=== PATIENT | male | born 1945 | race Caucasian/White ===

== ENCOUNTER 2022-10-14 12:38 | Day surgery (SDC) | payer MEDICARE, SELFPAY ==
--- NOTE | 2022-10-06 10:04 | EKG12_ITS ---
Test Reason : PRE-OP Blood Pressure : / mmHG Vent. Rate : 084 BPM Atrial Rate : 084 BPM P-R Int : 240 ms QRS Dur : 078 ms QT Int : 360 ms P-R-T Axes : 051 -01 066 degrees QTc Int : 425 ms Sinus rhythm with marked sinus arrhythmia with 2nd degree AV block: mobitz I Nonspecific ST and T wave abnormality Confirmed by LUKE HALL, HAIM ([id number]), videotape editor EVELIA PIERRE ([id number]) on 10/07/2022 11:05:15 AM Referred By: NIGHAT Confirmed By:HAIM BUTLER MD
[2022-10-06 10:39] LABS: Absolute Lymphocyte Count 0.89 X10^3/uL (0.83-4.51); Absolute Neutrophil Count 4.3 X10^3/uL (2.0-7.7); Basophil# 0.04 X10^3/uL; Basophil% 0.7 % (0-1); Eosinophil# 0.06 X10^3/uL; Hematocrit 40.5 % (40-54); Hemoglobin 12.4 g/dL (13.0-16.5); Lymphocyte # 0.89 X10^3/ul (0.83-4.51); Lymphocyte % 15.5 % (19-41); Mean Corp Hgb Conc 30.6 g/dL (32-36); Mean Corpuscular Hgb 28.4 pg (27.0-32.0); Mean Corpuscular Volume 92.9 fL (80-94); Mean Platelet Vol. 9.6 fl (6.2-12.0); Monocyte# 0.41 X10^3/uL; Monocyte% 7.1 % (0-10); NRBC Flagged by Analyzer 0 % (0-5); Neutrophil # 4.33 X10^3/uL (2.7-7.7); Neutrophil % 75.2 % (47-70); Platelet Count 350 K/mm3 (150-450); RBC Distribution Width CV 15.4 % (11.6-14.6); RBC Distribution Width SD 52.5 fl (35.1-43.9); Red Blood Count 4.36 M/mm3 (4.6-6.2); White Blood Count 5.8 K/mm3 (4.4-11.0)
[2022-10-06 11:09] LABS: Anion Gap 8 (5-15); BUN 26 mg/dL (7-18); BUN/Creat Ratio 23.6 RATIO (10-20); Calcium,Total 9.1 mg/dL (8.5-10.1); Chloride 107 mmol/L (98-107); EST Glomerular Filtration Rate 69 mL/min (>60); Est Glom Filt Rate - Afr Amer 84 mL/min (>60); Glucose 140 mg/dL (74-106); Sodium Level 139 mmol/L (136-145)
[2022-10-14] VITALS (10 sets, daily range): BP systolic 137–195; BP diastolic 68–100; PULSE 76–96; RESP 16–18; TEMP 36.5–36.6; O2SAT 94–100; BMI 32.8
[2022-10-14] MEDS: Lactated Ringers 1,000 ML 15 ML IV (13:22)
[2022-10-14 14:06] LABS: Bedside Glucose 95 mg/dL (74-106)
--- NOTE | 2022-10-14 14:55 | RAD_ITS ---
HISTORY: FX. Fluoroscopic support for ankle internal fixation. COMPARISON: None TECHNIQUE: A total of 5 fluoroscopic images were saved without a radiologist present. FINDINGS: Images demonstrate fibular internal fixation plate-screw complex without evidence of hardware failure. Progressive placement of distal tibiofibular syndesmosis internal fixation hardware.. Total fluoroscopy time: 49.8 seconds Cumulative air kerma: 1.29 mGy RAD/Ankle 2 Views IMPRESSION: Fluoroscopic assistance for ankle internal fixation. Please see operative report for additional information. Electronically Signed: Cheikh Guo MD at 4:19 EST ,
[2022-10-14] MEDS: Cefazolin 2 GM in 0.9% Normal Saline 100 ML IV (15:02)
--- NOTE | 2022-10-14 16:43 | DCINST_ITS ---
Discharge Instructions Follow Up Care Test Results: Test results from this visit will be discussed in further detail at your follow- up appointment, if applicable. Discharge Plan Admission Primary Reason for Your Visit: Right ankle surgery Attending Provider: Rodger Evans Primary Care Provider: Wesley Hampton Instructions Additional Instructions / Restrictions: Follow preprinted instructions from your surgeon's office. Discharge Orders/Prescriptions Prescriptions: No Action venlafaxine 75 mg capsule,extended release 24hr 75 mg PO DAILY Label Comments: TAKE 1 CAPSULE BY MOUTH EVERY DAY atorvastatin 20 mg tablet 20 mg PO DAILY Label Comments: TAKE 1 TABLET BY MOUTH EVERY DAY pioglitazone [Actos] 45 mg Tablet 45 mg PO DAILY clopidogrel 75 mg tablet 1 mg PO DAILY Label Comments: TAKE 1 TABLET BY MOUTH EVERY DAY metformin 1,000 mg tablet 1,000 mg PO BID Label Comments: TAKE 1 TABLET BY MOUTH TWICE A DAY WITH MEALS lisinopril 10 mg tablet 10 mg PO DAILY Label Comments: TAKE 1 TABLET BY MOUTH EVERY DAY glimepiride 4 mg tablet 4 mg PO BID Label Comments: TAKE 1 TABLET BY MOUTH TWICE A DAY Jardiance 25 mg tablet 25 mg PO DAILY mecobalamin (vitamin B12) [B12 Active] 1,000 mcg Tablet,Chewable 1,000 mcg PO DAILY hydrocodone-acetaminophen 5-325 mg Tablet 1 tab PO Q6H PRN (Reason: Pain) Referrals / Follow Up: Rodger Evans DO [Med Staff - Active Staff] - Within 2 Weeks Wesley Hampton DO [Primary Care Provider] - Disposition Disposition (needs filled in before D/C Order can be placed): Home, Self Care
--- NOTE | 2022-10-14 16:55 | OP.PCM_ITS ---
Report of Operation Date of Procedure: 10/14/22 Description of Surgical Findings:: Preoperative diagnosis: Right bimalleolar equivalent ankle fracture Postoperative diagnosis: Right bimalleolar equivalent ankle fracture with syndesmotic instability Procedure: 1. Open reduction internal fixation right lateral malleolus 2. Open reduction internal fixation right ankle syndesmosis Surgeon: Rodger Evans DO Computer Numeric Control Setter: Jennifer Marcelino PA-C Anesthesia: General endotracheal with popliteal block Anesthesiologist: Dr. Valle Complications: None Drains: None Estimated blood loss: 25 cc Urinary output: None recorded IV fluids: 1200 cc crystalloid Specimens: None Surgical implants: Arthrex 5 hole right lateral distal fibular locking plate, Arthrex tight rope syndesmotic suture fixation device Surgical indications: This is a 76-year-old male who sustained a twisting injury to his right ankle approximately 2 weeks ago. X-rays were obtained at outside ED and demonstrate a displaced lateral malleolus fracture with lateral subluxation of the talus suggesting a bimalleolar equivalent fracture subluxation. I saw the patient in the outpatient setting. I recommend surgical intervention in the form of right ankle lateral malleolus open reduction internal fixation with possible syndesmot ic fixation. The risks include but are not limited to bleeding, infection, loss of life or limb, risk of anesthesia, risk of nerve block, persistent pain, nonunion, malunion, posttraumatic arthritis, instability, need for additional surgery, failure of orthopedic hardware, persistent limp or need for assistive device. Patient expressed understanding of these risks and wished to proceed. Description of procedure: Patient was seen in preoperative holding area. They were identified by name, medical record number, date of . The operative extremity was marked with a surgical marker. We confirmed informed consent with the patient and all questions were answered to his satisfaction. In the preoperative holding area, a popliteal block was administered by the anesthesia staff. At time of the procedure, patient was brought to the operative suite and positioned supine on a standard operating table. All bony prominences were well-padded. General anesthesia was administered. After adequate anesthesia, a well-padded pneumatic tourniquet was applied to the right upper thigh. A large bump was placed in the patient's right hip. The right lower extremity was elevated on bath blankets for fluoroscopic imaging and access to the limb during surgery. We secured this with tape as well as the nonoperative extremity. We then performed a timeout with all parties in attendance and agree with the side, site, operation to be performed. No concerns were voiced and elected to proceed. 2 g Ancef was administered prior to incision by the anesthesia staff. We then prepped and draped the operative extremity using a ChloraPrep. While stabilizing the ankle, the operative extremity was exsanguinated with an Esmarch bandage. Tourniquet was inflated to 250 mmHg and remained up for ap proximately 45 minutes. Incision was planned over the lateral malleolus and distal fibular shaft centered over the level of the fracture. Skin was sharply incised with a 15 blade scalpel. Superficial bleeders were cauterized with Bovie cautery. We then bluntly dissected to the level of the fascia. Fascia was opened with Bovie cautery. We examined closely for the superficial peroneal nerve which was not encountered throughout surgery. We bluntly dissected down to the level of the periosteum. Hohmann retractors were placed after fracture was encountered as well as the fibula. Periosteum was elevated at the level of the fracture approximately 2 to 3 mm. There is a small cortical avulsion fracture of the AITFL. A [id number] reduction tenaculum was used to reapproximate the major fracture line with excellent anatomic reduction. We then prepared for a lag screw for fixation. We first planned our lag screw perpendicular to the fracture site posterior inferior to anterior superior. We overdrilled the near cortex with a 3.5 mm drill bit. We then withdrew the drill bit and drilled the far cortex with a 2.7 mm drill bit. We then measured and placed an appropriately sized lag by technique 3.5 mm cortical screw with excellent compression across the fracture site. Reduction tenaculum was removed with excellent security at the fracture site. We then selected our plate on the back table. We ensured that we had 3 screws above and below the fracture site. A 5 hole distal fibular lateral locking plate was selected for after confirming on fluoroscopy. This was held in place provisionally with K wires. Appropriate plate positioning was confirmed on orthogonal fluoroscopy. I then compressed the plate to the bone with a bicortical cortex screw through the oblong hole of the plate in the shaft. I then compressed the distal portion of the plate to bone with a cancellous screw in the lateral malleolus. I then proceeded with placing locking screws in the distal cluster. 2 additional cortical screws were placed in the proximal shaft portion of the plate. I then brought in the C arm to assess the syndesmosis. External rotation and cotton test revealed syndesm otic instability. I proceeded with stabilization syndesmosis placing a quad cortical tight rope suture fixation device utilizing a cannulated drill. Tight rope was passed and flipped over the far tibial cortex and sequentially tightened with excellent compression across the syndesmosis. Subsequent stress tests demonstrated stability of the syndesmosis. Tourniquet was then deflated after thoroughly irrigating the wound with normal saline solution. Hemostasis was achieved with Bovie cautery. I reapproximated the fascia over top of the plate with a 2-0 Vicryl. Dermis was reapproximated buried 2-0 Vicryl suture. Skin was finally reapproximated with simple 3-0 nylon suture. Sterile compression dressing was applied. I then placed a well-padded 3 sided AO type short leg fiberglass splint in maximal dorsiflexion. Anesthesia was then reversed. Patient was safely extubated in the operative suite and transferred to his gurney and subsequently to PACU in stable condition. Patient tolerated procedure well without apparent complication. Need for skilled information services assistant: Jennifer Marcelino PA-C was critical to the outcome of the case. During the course of the procedure the physician information services assistant played a vital role. Her intimate knowledge of my steps in the procedure aided in safe and expedient completion of the procedure. The PA played a vital role in positioning particularly in obtaining the appropriate positioning. The PA was also vital in the retraction of soft tissues during the exposure and protecting vital structures. The PA was also vital and obtaining fracture reduction and as sisting with hardware placement. She also played a vital role in closure and splint application with my direct supervision. Post Operative Plan: Weightbearing: Nonweightbearing operative extremity Antibiotics: 2 g Ancef x 1 dose preoperatively DVT Prophylaxis: Restart home Plavix postoperative day #1 [place]: None Dressing: Maintain splint, keep it clean dry and intact until follow-up X-Rays: 2 weeks postop in the office Pain Medication: Oxycodone prescription provided as an outpatient Follow-up: 2 weeks post-operatively with me in the office as previously scheduled
[2022-10-14 17:55] LABS: Bedside Glucose 120 mg/dL (74-106)
[2022-10-14] MEDS: HYDROcodone Bitartrate/Apap 5/325 Tablet PO (18:02)
== END 2022-10-14 19:24 | disposition home or self-care (01) ==
LOC: SDC 12:38 → AC 12:39
PROVIDERS: PCP Family Medicine; Referring Provider Student in an Organized Health Care Education/Training Program; Visit Provider Student in an Organized Health Care Education/Training Program
PROC: (CPT 27792; principal; 2022-10-14 13:50)
DX: S82.841A Displaced bimalleolar fracture of right lower leg, initial encounter for closed fracture (principal); E11.9 Type 2 diabetes mellitus without complications; S93.431A Sprain of tibiofibular ligament of right ankle, initial encounter; M25.371 Other instability, right ankle; V48.4XXA Person boarding or alighting a car injured in noncollision transport accident, initial encounter; I10 Essential (primary) hypertension; E78.00 Pure hypercholesterolemia, unspecified; E66.8 Other obesity; Z68.34 Body mass index [BMI] 34.0-34.9, adult; Z79.02 Long term (current) use of antithrombotics/antiplatelets; Z79.84 Long term (current) use of oral hypoglycemic drugs; Z79.899 Other long term (current) drug therapy; Z86.73 Personal history of transient ischemic attack (TIA), and cerebral infarction without residual deficits
CPT/HCPCS: 27792; 27829; 64445; 36415; 73600; 76000; 80048; 82962; 83036; 85025; 93005; C1776; J7120; J2405

== ENCOUNTER 2025-11-24 22:44 | Inpatient (IN) | payer MEDICARE, SELFPAY ==
[2025-11-24 22:46] VITALS: BP 101/68; PULSE 64; RESP 26; TEMP 36.6; O2SAT 97; BMI 39.3
--- NOTE | 2025-11-24 22:52 | EKG12_ITS ---
Test Reason : SOB Blood Pressure : */* mmHG Vent. Rate : 101 BPM Atrial Rate : * BPM P-R Int : * ms QRS Dur : 80 ms QT Int : 346 ms P-R-T Axes : * 5 137 degrees QTcB Int : 448 ms Unclear Atrial Rhythm; Possible Sinus Rhythm with frequent premature ventricular complexes Low voltage QRS Possible Inferior infarct , age undetermined Cannot rule out Anterior infarct , age undetermined ST & T wave abnormality, consider lateral ischemia Abnormal ECG Baseline wander/artifact Confirmed by Nitish Lawson ([id number]), makeup editor EVELIA PIERRE ([id number]) on 11/30/2025 7:30:18 AM Referred By: Beverly Lewis Confirmed By: Nitish Lawson
[2025-11-24 22:55] VITALS: O2SAT 98
[2025-11-24 23:00] VITALS: PULSE 104; RESP 12; RESP 22; O2SAT 98
--- NOTE | 2025-11-24 23:06 | RAD_ITS ---
PROCEDURE: CHEST 1 VIEW (PORTABLE) 11/24/2025 REASON FOR EXAM: SHORTNESS OF BREATH TECHNIQUE: Frontal view of the chest. COMPARISON: None FINDINGS: Hardware: None Heart: Cardiac and mediastinal contours are stable. Lungs: Hypoventilation. Right lung base airspace opacity. Probable small-sized right pleural effusion. Bones: The bones are unremarkable. RAD/Chest 1 View (Portable) IMPRESSION: Hypoventilation. Right lung base airspace opacity. Probable small-sized right p leural effusion. Reading Location: [facility]
--- NOTE | 2025-11-24 23:16 | ED.VIS.DYS ---
HPI History of Present Illness Chief Complaint: Shortness of Breath Narrative Narrative: Patient was seen and examined after presenting to ED for shortness of breath started having significantly more bilateral lower extremity edema that is pitting has had a history of several MIs but not on any sort of diuretic. Also not on anticoagulation. Started having shortness of breath approximately 3 days ago came in and was reportedly hypoxic in the 80% range was placed on CPAP per EMS. [facility] Medical History Wears glasses Loose, teeth Diabetes Ambulates with cane High cholesterol Hypertension Restless legs Stroke/cerebrovascular accident Chews tobacco Non-smoker History of edema History of irregular heartbeat Home Medications ?Medication ?Instructions ?Recorded ?Last Taken ?Type atorvastatin 20 mg tablet 20 mg PO DAILY 10/08/22 Unknown History clopidogrel 75 mg tablet 1 mg PO DAILY 10/08/22 Unknown History empagliflozin 25 mg tablet 25 mg PO DAILY 10/08/22 Unknown History (Jardiance) glimepiride 4 mg tablet 4 mg PO BID 10/08/22 Unknown History lisinopril 10 mg tablet 10 mg PO DAILY 10/08/22 10/14/22 08:00 History mecobalamin (vitamin B12) 1,000 1,000 mcg PO DAILY 10/08/22 Unknown History mcg chewable tablet (B12 Active) metformin 1,000 mg tablet 1,000 mg PO BID 10/08/22 Unknown History pioglitazone 45 mg tablet (Actos) 45 mg PO DAILY 10/08/22 Unknown History venlafaxine 75 mg capsule,extended 75 mg PO DAILY 10/08/22 Unknown History release 24 hr amlodipine 5 mg tablet 5 mg PO DAILY 11/24/25 Unknown History Allergy/AdvReac Type Severity Reaction Status Date / Time No Known Allergies Allergy Verified 11/24/25 22:52 Surgical History History of hernia repair Social History Smoking Status: Never smoker ROS ROS ED ROS Narrative Pertinent Positives: Shortness of breath history of MIs bilateral lower extremity edema orthopnea Pertinent Negatives: Fevers chills chest pain pressure vomiting use of anticoagulation history of DVT or PE The remainder of review of systems negative unless otherwise stated in the HPI above. Systems reviewed including constitutional, psychiatric, cardiovascular, respiratory, integument, HENT, gastrointestinal. EXAM Physical Exam Narrative Exam Narrative: Patient is afebrile hemodynamically stable he is now on BiPAP. Normal heart sounds lungs are coarse with crackles. Abdomen is soft nontender nondistended he has intact and equal MSPs but he has significant bilateral lower extremity pitting edema no erythema no crepitus no calf tenderness on palpation patient is tachypneic Const Vital Signs: 11/24/25 22:46 11/24/25 22:55 11/24/25 22:55 Temperature 98 F Temperature Source Oral Pulse Rate 64 Respiratory Rate 26 H Respiratory Effort Short of Breath Labored Respiratory Depth Shallow Respiratory Pattern Tachypnea Blood Pressure 101/68 Blood Pressure Mean 79 Pulse Ox 97 Oxygen Delivery Method Bi-pap Bi-pap Bi-pap Fraction of Inspired Oxygen (FIO2) 40 11/24/25 23:00 11/24/25 23:36 11/24/25 23:46 Temperature 98.1 F Temperature Source Oral Pulse Rate 104 H 102 H 104 H Respiratory Rate 22 H 23 H 22 H Respiratory Effort Respiratory Depth Respiratory Pattern Tachypnea Blood Pressure 95/57 L Blood Pressure Mean 69 Pulse Ox 98 96 91 Oxygen Delivery Method Bi-pap Fraction of Inspired Oxygen (FIO2) 40 25 25 11/24/25 23:56 11/25/25 00:05 11/25/25 01:00 Temperature 98.1 F 98.2 F Temperature Source Temporal Temporal Pulse Rate 102 H 103 H 104 H Respiratory Rate 21 H 21 H 22 H Respiratory Effort Respiratory Depth Respiratory Pattern Blood Pressure 95/57 L 112/71 106/72 Blood Pressure Mean 69 84 83 Pulse Ox 90 92 99 Oxygen Delivery Method Bi-pap Bi-pap Room Air Fraction of Inspired Oxygen (FIO2) 25 25 25 Sepsis Attestation Sepsis Alert: Yes Sepsis Attestation: Agree w/Sepsis Date exam was performed: 11/24/25 Time exam was performed: 22:45 Possible Source of Sepsis: Pulmonary Sepsis Organ Dysfunction Criteria Present: Acute Respiratory Failure (New need for BiPAP/CPAP or MV), Creatinine > 2.0 mg/dL, Lactic Acid > 2 mmol/L and Serum CO2 < 20 mmol/L (on BMP) Fluid Resuscitation Fluid resuscitation indicated?: Yes Fluid Resuscitation ordered: Fluids not indicated Reason for lesser fluid bolus:: Concern for fluid overload, Heart failure and Renal Failure Sepsis Note Date exam was performed: 11/25/25 Time exam was performed: 00:34 Sepsis Attestation: Sepsis re-evaluation was performed MDM MDM MDM Narrative Medical decision making narrative: Nursing notes, triage notes, available previous documentation, and vital signs were reviewed. Any discrepancies noted were addressed. Differential Diagnoses: Heart failure exacerbation could be pneumonia as well lower suspicion for PE Interventions: Bumex Antibiotics Given: Ceftriaxone Fluids Given: No fluids given because patient's blood pressure is otherwise appropriate and I have concern for heart failure exacerbation Labs Reviewed: No leukocytosis or leukopenia hemoglobin is 11.1 no coagulopathy no significant electrolyte abnormality however patient has a pretty significant metabolic acidosis lactic acid is elevated at 6.3 however patient was not really oxygenating well so component of this is probably associated with that does have an PHILLIP with creatinine of 2.1 elevated troponin as well this could be a component of the PHILLIP and the level of it is 202 for that initial troponin the proBNP is 8947 no transaminitis. Patient's bicarb is 12.7. Patient's urine. No evidence of infection. Imaging Reviewed: Personally reviewed and interpreted by me: Chest x-ray with what appears to be right-sided pleural effusion patient has evidence of pulmonary edema EKG: Tachycardic rate of 101 there are PVCs. EKG interpretation is noted and agreed to in the EMR. The interpretation of this patient's EKG contributed directly to the care and management of this patient. Previous Documentation Reviewed: None available or applicable at this time. ED Course: Patient presenting with respiratory distress patient was placed on BiPAP here in the emergency department patient will require admission regardless of labs I have a higher suspicion for this being a heart failure exacerbation but we are also obtaining blood cultures. 11/25/2025 at 0032: Patient's blood pressure is holding up he is doing well on the BiPAP he does have a pretty significant lactic acidosis with a high anion metabolic acidosis however given the volume overload that the patient has I do not believe providing any fluids would be helpful and instead could be detrimental to the patient's care we will however cover for pneumonia with ceftriaxone given an abundance of caution as there is possibly an overlying pneumonia on top of the pleural effusion patient also has an acute kidney injury 0155: I had a [id number] discussion with the hospitalist who is agreeable to admission 38 minutes of critical care time utilized in managing the patient. This is due to high probability of and deterioration of the patient based on the patient's condition and excludes any separately billable procedures. This note was made utilizing voice recognition software. All attempts were made to correct spelling or other errors prior to note completion. However, due to the fast-paced nature of emergency medicine, some errors may still be present. Lab Data Labs: Laboratory Results - last 24 hr 11/24/25 11/24/25 23:00 23:43 WBC 6.5 RBC 3.84 L Hgb 11.1 L Hct 35.6 L MCV 92.7 MCH 28.9 MCHC 31.2 L RDW Std Deviation 55.4 H RDW Coeff of [place] 16.7 H Plt Count 240 MPV 11.8 Immature Gran % (Auto) 1.200 H Neut % (Auto) 79.6 H Lymph % (Auto) 11.2 L [place] % (Auto) 7.2 Eos % (Auto) 0.3 Baso % (Auto) 0.5 Absolute Neuts (auto) 5.2 Absolute Lymphs (auto) 0.73 L Nucleated RBC % 0 PT 14.6 INR 1.1 APTT 28.0 Sodium 139 Potassium 4.9 Chloride 107 H Carbon Dioxide 12.7 L Anion Gap 20 H BUN 62 H Creatinine 2.12 H Estim Creat Clear Calc 34.63 L Est GFR (MDRD) Non-Af 31 L BUN/Creatinine Ratio 29.1 H Glucose 289 H Lactic Acid 6.3 H* Calcium 8.9 Total Bilirubin 0.34 AST 19 ALT 17 Alkaline Phosphatase 91 Troponin T High Sens 202 H* NT pro BNP II 8947 H Total Protein 6.3 Albumin 3.9 Globulin 2.4 Albumin/Globulin Ratio 1.6 Urine Color Yellow Urine Clarity Clear Urine pH 5.0 Ur Specific [place] 1.015 Urine Protein 100 H Urine Glucose (UA) 1000 H Urine Ketones Negative Urine Occult Blood 25 H Urine Nitrite Negative Urine Bilirubin Negative Urine Urobilinogen Normal Ur Leukocyte Esterase Negative Urine RBC 0-5 SEEN Urine WBC 0-5 SEEN Ur Squamous Epith Cells 0 SEEN Urine Bacteria 0 SEEN Urine Mucus 0 SEEN ABG Data ABG results: ABG 11/24/25 23:25 Specimen Type ART Sample Site L Radial pH 7.34 L Bicarbonate Actual 15.4 L Total CO2 16 Base Excess -10 L O2 Saturation 98 O2 % 40.0 ABG pCO2 28.3 L ABG pO2 109 H Mitesh Test Negative Respiration Rate 12 O2 Delivery Device BiPAP Vent Mode Not entered POC PEEP 8 Radiography Diagnostic Testing: Clinical Impression(s) from Imaging Studies Chest X-Ray 11/24/25 23:06 IMPRESSION: Hypoventilation. Right lung base airspace opacity. Probable small-sized right pleural effusion. Reading Location: [facility] Discharge Plan Triage Chief Complaint: Shortness of Breath ED Provider: Ruth Cordero Dx/Rx/DC Orders Clinical Impression: Acute hypoxemic respiratory failure, CHF exacerbation, Bilateral leg edema, Pleural effusion, right, Pneumonia, PHILLIP (acute kidney injury), Lactic acidosis, Elevated troponin Prescriptions: No Action venlafaxine 75 mg capsule,extended release 24hr 75 mg PO DAILY Patient Comments: TAKE 1 CAPSULE BY MOUTH EVERY DAY atorvastatin 20 mg tablet 20 mg PO DAILY Patient Comments: TAKE 1 TABLET BY MOUTH EVERY DAY pioglitazone [Actos] 45 mg Tablet 45 mg PO DAILY clopidogrel 75 mg tablet 1 mg PO DAILY Patient Comments: TAKE 1 TABLET BY MOUTH EVERY DAY metformin 1,000 mg tablet 1,000 mg PO BID Patient Comments: TAKE 1 TABLET BY MOUTH TWICE A DAY WITH MEALS lisinopril 10 mg tablet 10 mg PO DAILY Patient Comments: TAKE 1 TABLET BY MOUTH EVERY DAY glimepiride 4 mg tablet 4 mg PO BID Patient Comments: TAKE 1 TABLET BY MOUTH TWICE A DAY Jardiance 25 mg tablet 25 mg PO DAILY mecobalamin (vitamin B12) [B12 Active] 1,000 mcg Tablet,Chewable 1,000 mcg PO DAILY amlodipine 5 mg tablet 5 mg PO DAILY Primary Care Provider: Wesley Hampton Referrals: Wesley Hampton DO [Primary Care Provider, Medical] Print Language: Ecuadorean
[2025-11-24 23:20] LABS: Hematocrit 35.6 % (40-54); Hemoglobin 11.1 g/dL (13.0-16.5); Immature Granulocytes Count 0.080 X10^3/uL (0.0-0.0); Mean Corp Hgb Conc 31.2 g/dL (32-36); Mean Corpuscular Volume 92.7 fL (80-94); Mean Platelet Vol. 11.8 fl (6.2-12.0); NRBC Flagged by Analyzer 0 % (0-5); Platelet Count 240 K/mm3 (150-450); RBC Distribution Width CV 16.7 % (11.6-14.6); RBC Distribution Width SD 55.4 fl (35.1-43.9); Red Blood Count 3.84 M/mm3 (4.6-6.2); White Blood Count 6.5 K/mm3 (4.4-11.0)
[2025-11-24 23:28] LABS: Partial Thromboplast Time 28.0 Seconds (24.1-36.2); Prothrombin Time (Protime)PT. 14.6 SECONDS (11.7-14.9)
[2025-11-24 23:30] LABS: Allen Test Negative; Base Excess -10 mmol/L (-2 to +2); FI02 40.0; PEEP 8; PO2 109 mmHG (75-100); RR 12; SITE L Radial; SO2 98 % (94-98)
[2025-11-24 23:36] VITALS: PULSE 102; RESP 12; RESP 23; O2SAT 96
[2025-11-24 23:39] LABS: Troponin T High Sensitivity 202 ng/L (<=22)
[2025-11-24 23:46] VITALS: BP 95/57; PULSE 104; RESP 22; TEMP 36.7; O2SAT 91
--- NOTE | 2025-11-24 23:52 | NURSING ---
Pt is in fluid overload so sepsis fluid not given at this time.
[2025-11-24 23:53] LABS: Mucous, Urine 0 SEEN /hpf (<or=2+); Squamous Epithelial Cells - UA 0 SEEN /hpf (0-5)
[2025-11-24 23:56] VITALS: BP 95/57; PULSE 102; RESP 21; TEMP 36.7; O2SAT 90
[2025-11-24 23:56] LABS: Color, Urine Yellow (Yellow); Glucose, Dipstick 1000 mg/dl (Normal); Ketone-Dipstick Negative (Negative); Leukocyte Esterase-Dipstick Negative /ul (Negative); Nitrite-Dipstick Negative (Negative); Occult Blood-Urine 25 /ul (Negative); Protein-Dipstick 100 mg/dl (Negative); Specific Gravity, Urine 1.015 (1.002-1.030); Urine Bilirubin Dipstick Negative (Negative)
[2025-11-25] VITALS (53 sets, daily range): BP systolic 82–122; BP diastolic 49–102; PULSE 77–105; RESP 12–36; TEMP 36.6–37.6; O2SAT 87–100; BMI 39.3; BMI 39.4
[2025-11-25 00:03] LABS: AST(SGOT) 19 U/L (<=37); Alanine Aminotransfer ALT/SGPT 17 U/L (<=46); Albumin, Serum 3.9 g/dL (3.4-4.8); Alkaline Phosphatase 91 U/L (40-129); Anion Gap 20 (7-18); BUN 62 mg/dL (4-19); BUN/Creat Ratio 29.1 RATIO (10-20); Calcium,Total 8.9 mg/dL (7.6-11.0); Carbon Dioxide 12.7 mmol/L (20.0-29.0); Chloride 107 mmol/L (96-106); Estimated Creatinine Clearance 34.63 ml/min (50-250); Globulin 2.4 g/dL (2.2-4.2); Glucose 289 mg/dL (70-99); Potassium 4.9 mmol/L (3.5-5.1); Pro- Brain NATRIURETIC PEPTIDE 8947 pg/mL (<=1800)
[2025-11-25 00:04] LABS: Red Blood Cells-Urine 0-5 SEEN /hpf (0-5)
--- OUTSIDE RECORDS SUMMARY | 2025-11-25 00:36 | XMS RPT_ITS | CCD ---
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 Patient has substantial difficulty moving from the chair to the table. His gait is slow and deliberate. Diminished range of motion of his spine. Hip range of motion is fair. Thigh flexion and abduction and abduction is fair. However he has substantial weakness with dorsi flexion foot eversion, and plantarflexion of both feet. Toes downgoing and no clonus. [1] No Known Allergies [2] Current Outpatient Medications: aspirin 81 MG EC tablet, Take 1 tablet (81 mg) by mouth daily., Disp: 30 tablet, Rfl: 11 Cyanocobalamin (VITAMIN B 12 PO), Take by mouth., Disp: , Rfl: amLODIPine (Norvasc) 5 MG tablet, Take 1 tablet (5 mg) by mouth daily., Disp: 90 tablet, R (more content not included)... Normal [address] 04-20-2025 36 Medication name: glimepiride (Amaryl) 4 MG tablet Medication dosage: 4 mg (Miligrams Monthly quantity needed: 30 How many day supply requestin days Medication route: oral (PO) Medication administration time(s): daily If taking medication PRN, reason for taking medication: N/A If this is a controlled substance do you receive this or any other controlled medication from any other doctor or facility: No Ordering provider: Dr Jimenez Date of last office visit: 01/09/2025 Date of next office visit: 05/15/2025 Date of last refill: (see medication tab): 01/14/2025 Updated/Validated preferred pharmacy: Yes Patient instructed to contact the pharmacy prior to picking up the medication: Yes Normal [facility] 36on 01-15-2025 36 Please release labs to patient along with medication changes ----- Message from Paulo Jimenez DO sent at 01/14/2025 1:18 PM EST ----- As lab is well including CBC, chemistries and lipid panel. Of note his hemoglobin A1c is actually somewhat low for his age. I actually recommend decreasing glimepiride to only 1 tablet each morning and deleting the tablet in the afternoon due to risks for hypoglycemia at his age. Continue all other meds as is. Checkup as directed. Normal [facility] AMB POC URINE, MICROALBUMINo n 01-09-2025 Albumin Test strip detection limit <= 20 mg/L (U) [Mass/Vol] 80 mg/L NINF - 30 mg/L [facility] Albumin/Creatinine (U) [Ratio] mg/g [facility] - 30 mg/g [facility] CREATININE MG/DL 200 mg/dL [facility] alth Interpretation and review of laboratory results Abnormal [facility] ECG 12 leadon 01-09-2025 [facility] Office Visiton 01-09-2025 Follow-up visit [id number] Heike Carcamo 1945 M Date Provider Department Center 01/09/2025 [id number] JIMENEZ [facility] Family History Problem Relation Age of Onset Heart disease Mother Comments: [place] age 67 COPD Father Comments: age 67- Smoker Heart disease Brother No Known Problems Brother Family Status - Relation Status Age at Mother Father Brother Alive Brother Alive Level of Service:16501 ID OFFICE/OUTPATIENT ESTABLISHED MOD MDM 30 MIN Reason for Visit and Comments: Follow-up [166723] - Med check Normal [facility] Progress Noteon 01-09-[address] [facility] [address] [facility] [id number] Visit type: Established Patient Reason for Visit: Follow-up (Med check) Assessment / Plan: Heike was seen today for follow-up. Diagnoses and all orders for this visit: Type 2 diabetes mellitus without complication, without long-term current use of insulin ([facility]) ([facility]) (Primary) Comments: Stable, continue Jardiance, metformin and Actos and glimepiride Orders: - AMB POC URINE, MICROALBUMIN - glimepiride (Amaryl) 4 MG tablet; TAKE 1 TABLET BY MOUTH IN THE MORNING AND 1 TABLET IN THE EVENING. - Jardiance 25 MG; Take 1 tablet (25 mg) by mouth daily. - metFORMIN (Glucophage) 1000 MG tablet; Take 1 tablet (1,000 mg) by mouth 2 times daily (with meals). - pioglitazone (Actos) 45 MG tablet; Take 1 tablet (45 mg) by mouth daily. - CBC auto differential; Future - Comprehensive metabolic panel; Future - Hemoglobin A1c; Future - Lipid panel; Future - CBC auto differential - Comprehensive metabolic panel - Hemoglobin A1c - Lipid panel Essential hypertension Comments: stable, Continue lisinopril and Norvasc Orders: - amLODIPine (Norvasc) 5 MG tablet; Take 1 tablet (5 mg) by mouth daily. - lisinopril 20 MG tablet; Take 1 tablet (20 mg) by mouth daily for 180 doses. - ECG 12 lead; Future - ECG 12 lead Hypercholesterolemia Comments: Stable, continue Lipitor Orders: - atorvastatin (Lipitor) 40 MG tablet; Take 1 tablet (40 mg) by mouth daily for 360 doses. Anxiety and depression Comments: Stable, continue Effexor Orders: - venlafaxine XR (Effexor XR) 75 MG 24 hr capsule; Take 1 capsule (75 mg) by mouth daily. Cerebrovascular accident (CVA), unspecified mechanism (HCC) Comments: Stable, restart baby aspirin and continue Plavix Orders: - clopidogrel (Plavix) 75 MG tablet; Take 1 tablet (75 mg) by mouth daily. Type 2 diabetes mellitus with other circulatory complications (HCC) Palpitation Comments: Probably A-fib. Patient deferring Echo or Holter monitor or any discussion on anticoagulation therapy Orders: - Magnesium; Future - Magnesium Aortic heart murmur Concerned about new onset atrial fibrillation and aortic stenosis. Discussed need for echocardiogram and Holter monitor and perhaps different anticoagulant. He is not interested and defers any workup. He understands the risk of recurrent stroke and . Subjective: Patient ID: Heike Carcamo is a 79 y.o. male. HPI decently controlled type II diabetic with history of hypertension hyperlipidemia and remote stroke with right hemiaplasia presents for checkup. Not checking glucose levels at all. Denies excessive polyuria polydipsia. Denies exertional chest pain or palpitations PND orthopnea or claudication. No change in chronic right ankle edema. His feet are always cold but does not walk much and denies true claudication. No change in vision or skin. Review of Systems no recent earache sore throat or cough. No chest pain or palpitations. Denies PND or orthopnea. No heartburn or abdominal pain. Bowels are regular. No melena or blood. No dysuria. Using a cane without difficulty. His right arm and leg are stronger. He does have chronic twitching of his left side of his face for more than 20 years. No Known Allergies Current Outpatient Medications on File Prior to Visit Medication Sig Dispense Refill Cyanocobalamin (VITAMIN B 12 PO) Take by mouth. [DISCONTINUED] amLODIPine (Norvasc) 5 MG tablet Take 1 tablet (5 mg) by mouth daily. 90 tablet 1 [DISCONTINUED] atorvastatin (Lipitor) 40 MG tablet Take 1 tablet (40 mg) by mouth daily for 90 doses. 90 tablet 3 [DISCONTINUED] clopidogrel (Plavix) 75 MG tablet Take 1 tablet (75 mg) by mouth daily. 90 tablet 1 [DISCONTINUED] glimepiride (Amaryl) 4 MG tablet TAKE 1 TABLET BY MOUTH IN THE MORNING AND 1 TABLET IN THE EVENING. 180 tablet 1 [DISCONTINUED] Jardiance 25 MG Take 1 tablet (25 mg) by mouth daily. 90 tablet 1 [DISCONTINUED] lisinopril 20 MG tablet Take 1 tablet (20 mg) by mouth daily for 180 doses. 90 tablet 1 [DISCONTINUED] metFORMIN (Glucophage) 1000 MG tablet Take 1 tablet (1,000 mg) by mouth in the morning and 1 tablet (1,000 mg) in the evening. Take with meals. 180 tablet 1 [DISCONTINUED] pioglitazone (Actos) 45 MG tablet Take 1 tablet (45 mg) by mouth daily. 90 tablet 1 [DISCONTINUED] venlafaxine XR (Effexor XR) 75 MG 24 hr capsule Take 1 capsule (75 mg) by mouth daily. 90 capsule 1 aspirin 81 MG EC tablet Take 1 tablet (81 mg) by mouth daily. (Patient not taking: Reported on 01/09/2025) 30 tablet 11 [DISCONTINUED] atorvastatin (Lipitor) 20 MG tablet Take 1 tablet by mouth once daily (Patient not taking: Reported on 01/09/2025) 90 tablet 3 No current facility-administered medications on file prior to visit. Patient Active Problem List Diagnosis Type 2 diabetes mellitus with other circulatory complications (HC (more content not included)... Normal [facility] 36on 12-29-2024 36 Rx loaded [facility] No Panel InformationOrdered By: Seema Montemayor on 08-16-2024 Left CCA dist EDV 10.5 cm/s [facility] Work Phone: Left CCA dist PSV 96.0 cm/s [facility] Work Phone: Left CCA mid EDV 0.00 cm/s [facility] Work Phone: Left CCA mid PSV 130.20 cm/s [facility] Work Phone: Left CCA prox EDV 0.0 cm/s [facility] Work Phone: Left CCA prox PSV 117.7 cm/s [facility] Work Phone: Left ECA EDV 0.00 cm/s [facility] Work Phone: Left ECA PSV 151.6 cm/s [facility] Work Phone: Left ICA dist EDV 12.6 cm/s [facility] Work Phone: Left ICA dist PSV 98.1 cm/s [facility] Work Phone: Left ICA mid EDV 16.9 cm/s [facility] Work Phone: Left ICA mid PSV 108.8 cm/s [facility] Work Phone: Left ICA prox EDV 16.9 cm/s [facility] Work Phone: Left ICA prox PSV 123.8 cm/s [facility] Work Phone: Left ICA/CCA PSV 0.95 [facility] Work Phone: Left subclavian prox EDV 6.1 cm/s [facility] Work Phone: Left subclavian prox PSV 152.5 cm/s [facility] Work Phone: Left vertebral EDV 10.90 cm/s [facility] Work Phone: Left vertebral PSV 80.7 cm/s [facility] Work Phone: Right CCA dist EDV 5.3 cm/s [facility] Work Phone: Right cca dist PSV 119.6 cm/s [facility] Work Phone: Right CCA mid EDV 5.30 cm/s [facility] Work Phone: Right CCA mid PSV 135.90 cm/s [facility] Work Phone: Right CCA prox EDV 3.2 cm/s [facility] Work Phone: Right CCA prox PSV 90.2 cm/s [facility] Work Phone: Right ECA EDV 0.00 cm/s [facility] Work Phone: Right ECA PSV 213.2 cm/s [facility] Work Phone: Right ICA dist EDV 11.1 cm/s [facility] Work Phone: Right ICA dist PSV 111.9 cm/s [facility] Work Phone: Right ICA mid EDV 19.7 cm/s [facility] Work Phone: Right ICA mid PSV 131.2 cm/s [facility] Work Phone: Right ICA prox EDV 6.9 cm/s [facility] Work Phone: Right ICA prox PSV 147.4 cm/s [facility] Work Phone: Right ICA/CCA PSV 1.08 [facility] Work Phone: Right subclavian prox EDV 37.1 cm/s [facility] Work Phone: Right subclavian prox PSV 408.0 cm/s [facility] Work Phone: Right vertebral EDV 4.60 cm/s [facility] Work Phone: Right vertebral PSV 29.8 cm/s [facility] Work Phone: Left TAJ 1.18 [facility] Work Phone: Left arm BP 159 mmHg [facility] Work Phone: Left dorsalis pedis BP 188 mmHg [facility] Work Phone: Left posterior tibial 174 mmHg [facility] Work Phone: Left TBI 0.33 [facility] Work Phone: Left toe pressure 52 mmHg [facility] Work Phone: Right TAJ 1.31 [facility] Work Phone: Right arm BP 143 mmHg [facility] Work Phone: Right dorsalis pedis BP 201 mmHg [facility] Work Phone: Right posterior tibial 209 mmHg [facility] Work Phone: Right TBI 0.40 [facility] Work Phone: Right toe pressure 63 mmHg [facility] Work Phone: No Panel Informationon 08-16 <50% stenosis in the right internal carotid artery. Heterogeneous plaque (proximal) in the right internal carotid artery. Right Subclavian Artery: >50% stenosis. Moderate, heterogeneous and calcific plaque. <50% stenosis in the left internal carotid artery. Mild, heterogeneous and calcific plaque (proximal) in the left internal carotid artery. Normal antegrade flow involving the right vertebral artery. Abnormal signal consistent with pre-steal. Normal antegrade flow involving the left vertebral artery. Right Carotid Common Carotid Artery: Patent. Mild and calcific plaque (distal). Internal Carotid Artery: <50% stenosis. Minimal and heterogeneous plaque (proximal). External Carotid Artery: <50% stenosis. Minimal, heterogeneous and calcific plaque (proximal). Vertebral Artery: Flow is antegrade. 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 Subclavian Artery: >50% stenosis. Moderate, heterogeneous and calcific plaque. Left Carotid Common Carotid Artery: Patent. Mild, heterogeneous and calcific plaque (distal). Internal Carotid Artery: <50% stenosis. Mild, heterogeneous and calcific plaque (proximal). External Carotid Artery: <50% stenosis. Minimal, heterogeneous and calcific plaque (prox). Vertebral Artery: Flow is antegrade. Subclavian Artery: Normal. Subclavian has turbulent flow. Ceramics Instructor Details A diaz scale, color Doppler imaging and spectral Doppler analysis ultrasound was performed. During the study longitudinal and transverse views were obtained. Pulsed wave doppler was performed. The exam was performed with the patient in the supine position. Overall the study quality was adequate. CV CPACS Right side findings: Resting TAJ is 1.31. This is normal. Decreased resting right TBI. PVR waveforms appear normal at rest to the ankle. Left side findings: Resting TAJ is 1.18. This is within the normal range. Decreased resting TBI. PVR waveforms appear consistent with small vessel disease bilaterally. TAJ Right side findings: Non-compressible resting TAJ. Decreased resting TBI. Left side findings: Normal resting TAJ. Decreased resting TBI. Right PVR waveforms: Consistent with MODERATE disease - metatarsal region and 3rd digit. Consistent with MILD disease - 1st digit, 2nd digit, 4th digit and 5th digit. Normal - upper thigh, lower thigh, calf and ankle. Left PVR waveforms: Consistent with MODERATE disease - metatarsal region. Consistent with MILD disease - 1st digit, 2nd digit, 3rd digit, 4th digit and 5th digit. Normal - upper thigh, lower thigh, calf and ankle. Ceramics Instructor Details A spectral Doppler analysis ultrasound was performed. Continuous wave doppler, pulsed volume recording (PVR) and photo plethysmography was performed. The exam was performed with the patient in the supine position. Overall the study quality was adequate. CV [facility] AMB POC HEMOGLOBIN A1Con HbA1c (Bld) [Mass fraction] 6.9 % Abnormal - 5.7 % [facility] HbA1c (Bld) [Mass fraction]o n 09-06-2023 Interpretation and review of laboratory results Abnormal [facility] Comprehensive metabolic 1998 panelon 01-08-2023 Albumin [Mass/Vol] 4.1 g/dL 3.6 - 5.1 g/dL [facility] ALP [Catalytic activity/Vol] 115 U/L 35 - 144 U/L [facility] ALT [Catalytic activity/Vol] 9 U/L 9 - 46 U/L [facility] Anion gap [Moles/Vol] 9 mmol/L [facility] AST [Catalytic activity/Vol] 11 U/L 10 - 35 U/L [facility] Bilirubin [Mass/Vol] 0.4 mg/dL 0.2 - 1 .2 mg/dL [facility] Calcium [Mass/Vol] 9.1 mg/dL 8.6 - 10. 3 mg/dL [facility] Chloride [Moles/Vol] 106 mmol/L 98 - 11 0 mmol/L [facility] CO2 [Moles/Vol] 25 mmol/L 20 - 32 mmol/L [facility] Creatinine [Mass/Vol] 1.07 mg/dL 0.70 - 1.28 mg/dL [facility] GFR/1.73 sq M.predicted among non-blacks MDRD (S/P/Bld) [Vol rate/Area] 72 mL/min/{1.73_m2} > OR = 60 mL/min/1.73m2 [facility] Comment on above: The eGFR is based on the CKD-EPI 2020 equation. To calculate the new eGFR from a previous Creatinine or Cystatin C result, go to https://www.kidney.org/professionals/ kdoqi/gfr%5Fcalculator Glucose [Mass/Vol] 112 mg/dL High 65 - 99 mg/dL [facility] Comment on above: Fasting reference interval For someone without known diabetes, a glucose value between 100 and 125 mg/dL is consistent with prediabetes and should be confirmed with a follow-up test. Potassium [Moles/Vol] 4.5 mmol/L 3.5 - 5.3 mmol/L [facility] Protein [Mass/Vol] 6.4 g/dL 6.1 - 8.1 g/dL [facility] Sodium [Moles/Vol] 140 mmol/L 135 - 146 mmol/L [facility] Urea nitrogen [Mass/Vol] 25 mg/dL 7 - 25 mg/dL [facility] Hemoglobin A1con 01-08-2023 HbA1c (Bld) [Mass fraction] 6.2 % High NINF [facility] Comment on above: For someone without known diabetes, a hemoglobin A1c value between 5.7% and 6.4% is consistent with prediabetes and should be confirmed with a follow-up test. For someone with known diabetes, a value <7% indicates that their diabetes is well controlled. A1c targets should be individualized based on duration of diabetes, age, comorbid conditions, and other considerations. This assay result is consistent with an increased risk of diabetes. Currently, no consensus exists regarding use of hemoglobin A1c for diagnosis of diabetes for children. No Panel Informationon 01-08 Interpretation and review of laboratory results Abnormal [facility] ECG 12 leadon 01-07-2023 [facility] Ankle 2 Viewson 10-14-2022 Ankle 2 Views [facility] Imaging Services [address] [place] [address] Ankle 2 Views MR#: [id number] Acct: [id number] Name: HEIKE CARCAMO Rep #: [id number] : 1945 M 76 From: Cheikh Guo MD PCP: Dr. Wesley Hampton DO Status: [facility] Study: Ankle 2 Views Date of Exam: 10/14/22 Exam# [id number] Ordering Dr: Rodger Evans DO HISTORY: FX. Fluoroscopic support for ankle internal fixation. COMPARISON: None TECHNIQUE: A total of 5 fluoroscopic images were saved without a radiologist present. FINDINGS: Images demonstrate fibular internal fixation plate-screw complex without evidence of hardware failure. Progressive placement of distal tibiofibular syndesmosis internal fixation hardware.. Total fluoroscopy time: 49.8 seconds Cumulative air kerma: 1.29 mGy RAD/Ankle 2 Views IMPRESSION: Fluoroscopic assistance for ankle internal fixation. Please see operative report for additional information. Electronically Signed: Cheikh Guo MD at 4:19 EST , CC: Dr. Rodger Evans DO; Dr. Wesley Hampton DO Stamp Pad Finisher: Signed Normal [facility] Bedside Glucoseon 10-14-2022 FINGERSTICK GLU 120 mg/dL High 74-106 [facility] Comment on above: Result Comment: SANTIAGO GEMZANE OF PATIENT CARE PER NURSING PROTOCOL Performed By: #### L 501.080 #### [facility] Laboratory [address] [place], [address] FINGERSTICK GLU 95 mg/dL Normal 74-106 [facility] Comment on above: Result Comment: SANTIAGO TORRES OF PATIENT CARE PER NURSING PROTOCOL Performed By: #### L 501.080 #### [facility] [address] [place], [address] Discharge Instructionon 09-29 Discharge Instruction [facility] Medical Records Department [address] [place] [address] Instructions for Home/Discharge Instructions 10/14/22 1643 MR#: [id number] Acct: [id number] Name: HEIKE CARCAMO Rep #: [id number] : 1945 76 From: Rodger Evans DO PCP: Dr. Wesley Hampton DO [place] [facility] [place] Instructions Follow Up Care Test Results: Test results from this visit will be discussed in further detail at your follow-up appointment, if applicable. Discharge Plan Admission Primary Reason for Your Visit: Right ankle surgery Attending Provider: Rodger Evans Primary Care Provider: Wesley Hampton Instructions Additional Instructions / Restrictions: Follow preprinted instructions from your surgeon's office. Discharge Orders/Prescriptions Prescriptions: No Action venlafaxine 75 mg capsule,extended release 24hr 75 mg PO DAILY Label Comments: TAKE 1 CAPSULE BY MOUTH EVERY DAY atorvastatin 20 mg tablet 20 mg PO DAILY Label Comments: TAKE 1 TABLET BY MOUTH EVERY DAY pioglitazone [Actos] 45 mg Tablet 45 mg PO DAILY clopidogrel 75 mg tablet 1 mg PO DAILY Label Comments: TAKE 1 TABLET BY MOUTH EVERY DAY metformin 1,000 mg tablet 1,000 mg PO BID Label Comments: TAKE 1 TABLET BY MOUTH TWICE A DAY WITH MEALS lisinopril 10 mg tablet 10 mg PO DAILY Label Comments: TAKE 1 TABLET BY MOUTH EVERY DAY glimepiride 4 mg tablet 4 mg PO BID Label Comments: TAKE 1 TABLET BY MOUTH TWICE A DAY Jardiance 25 mg tablet 25 mg PO DAILY mecobalamin (vitamin B12) [B12 Active] 1,000 mcg Tablet,Chewable 1,000 mcg PO DAILY hydrocodone-acetaminop hen 5-325 mg Tablet 1 tab PO Q6H PRN (Reason: Pain) Referrals / Follow Up: Rodger Evans DO [Med Staff - Active Staff] - Within 2 Weeks Wesley Hampton DO [Primary Care Provider] - Disposition Disposition (needs filled in before D/C Order can be placed): Home, Self Care 10/14/22 1643 Rodger Evans DO CC: Dr. Wesley Hampton DO Signed Normal [facility] Glucose Glucometer (BldC) [M ass/Vol]on 10-14-2022 Glucose [Mass/Vol] 120 mg/dL 74-106 [facility] Work Phone: Comment on above: MANAGEMENT OF PATIEN T CARE PER NURSING PROTOCOL Operative Reporton 2 Operative Report [facility] Medical Records Department [address] [place] [address] Operative Report 10/14/22 1655 MR#: [id number] Acct: [id number] Name: HEIKE CARCAMO Rep #: [id number] : 1945 76 From: Rodger Evans DO PCP: Dr. Wesley Hampton DO [place] [facility] [place] [address] Report of Operation Date of Procedure: 10/14/22 Description of Surgical Findings:: Preoperative diagnosis: Right bimalleolar equivalent ankle fracture Postoperative diagnosis: Right bimalleolar equivalent ankle fracture with syndesmotic instability Procedure: 1. Open reduction internal fixation right lateral malleolus 2. Open reduction internal fixation right ankle syndesmosis Surgeon: Rodger Evans DO Refinish Technician: Jennifer Marcelino PA-C Anesthesia: General endotracheal with popliteal block Anesthesiologist: Dr. Valle Complications: None Drains: None Estimated blood loss: 25 cc Urinary output: None recorded IV fluids: 1200 cc crystalloid Specimens: None Surgical implants: Arthrex 5 hole right lateral distal fibular locking plate, Arthrex tight rope syndesmotic suture fixation device Surgical indications: This is a 76-year-old male who sustained a twisting injury to his right ankle approximately 2 weeks ago. X-rays were obtained at outside ED and demonstrate a displaced lateral malleolus fracture with lateral subluxation of the talus suggesting a bimalleolar equivalent fracture subluxation. I saw the patient in the outpatient setting. I recommend surgical intervention in the form of right ankle lateral malleolus open reduction internal fixation with possible syndesmotic fixation. The risks include but are not limited to bleeding, infection, loss of life or limb, risk of anesthesia, risk of nerve block, persistent pain, nonunion, malunion, posttraumatic arthritis, instability, need for additional surgery, failure of orthopedic hardware, persistent limp or need for assistive device. Patient expressed understanding of these risks and wished to proceed. Description of procedure: Patient was seen in preoperative holding area. They were identified by name, medical record number, date of . The operative extremity was marked with a surgical marker. We confirmed informed consent with the patient and all questions were answered to his satisfaction. In the preoperative holding area, a popliteal block was administered by the anesthesia staff. At time of the procedure, patient was brought to the operative suite and positioned supine on a standard operating table. All bony prominences were well-padded. General anesthesia was administered. After adequate anesthesia, a well-padded pneumatic tourniquet was applied to the right upper thigh. A large bump was placed in the patient's right hip. The right lower extremity was elevated on bath blankets for fluoroscopic imaging and access to the limb during surgery. We secured this with tape as well as the nonoperative extremity. We then performed a timeout with all parties in attendance and agree with the side, site, operation to be performed. No concerns were voiced and elected to proceed. 2 g Ancef was administered prior to incision by the anesthesia staff. We then prepped and draped the operative extremity using a ChloraPrep. While stabilizing the ankle, the operative extremity was exsanguinated with an Esmarch bandage. Tourniquet was inflated to 250 mmHg and remained up for approximately 45 minutes. Incision was planned over the lateral malleolus and distal fibular shaft centered over the level of the fracture. Skin was sharply incised with a 15 blade scalpel. Superficial bleeders were cauterized with Bovie cautery. We then bluntly dissected to the level of the fascia. Fascia was opened with Bovie cautery. We examined closely for the superficial peroneal nerve which was not encountered throughout surgery. We bluntly dissected down to the level of the periosteum. Hohmann retractors were placed after fracture was encountered as well as the fibula. Periosteum was elevated at the level of the fracture approximately 2 to 3 mm. There is a small cortical avulsion fracture of the AITFL. A [id number] reduction tenaculum was used to reapproximate the major fracture line with excellent anatomic reduction. We then prepared for a lag screw for fixation. We first planned our lag screw perpendicular to the fracture site posterior inferior to anterior superior. We overdrilled the near cortex with a 3.5 mm drill bit. We then withdrew the drill bit and drilled the far cortex with a 2.7 mm drill bit. We then measured and placed an appropriately sized lag by technique 3.5 mm cortical screw with excellent compression across the fracture site. Reduction tenaculum was removed with excellent security at the fracture site. We then selected our plate on the back table. We ensured that we h (more content not included)... Normal [facility] 12 Lead EKGon 10-06-2022 12 Lead EKG [facility] Cardiovascular Services [address] [place] [address] 12 Lead EKG 10/06/22 1016 MR#: [id number] Acct: [id number] Name: HEIKE CARCAMO Rep #: [id number] : 1945 76 From: Wesley Butler MD Attending Dr: Dr. Rodger Evans, Status: PRE SDC Ordering Dr: Samson Bello PA-C Date: 10/06/22 [place] [facility] [place] M C Admitted: Test Reason : PRE-OP Blood Pressure : / mmHG Vent. Rate : 084 BPM Atrial Rate : 084 BPM P-R Int : 240 ms QRS Dur : 078 ms QT Int : 360 ms P-R-T Axes : 051 -01 066 degrees QTc Int : 425 ms Sinus rhythm with marked sinus arrhythmia with 2nd degree AV block: mobitz I Nonspecific ST and T wave abnormality Confirmed by LUKE HALL, WESLEY ([id number]), technical editor EVELIA PIERRE ([id number]) on 10/07/2022 11:05:15 AM Referred By: NIGHAT Confirmed By:WESLEY BUTLER MD 10/07/22 1105 Date Wesley Butler MD CC: COLLEEN Bello; Dr. Rodger Evans DO; Dr. Wesley Hampton DO Signed Normal [facility] Absolute lymphocyte counton 10-06-2022 Lymphocytes Auto (Unsp spec) [#/Vol] 0.89 10*3/uL 0.83-4.51 [facility] Work Phone: Basic Metabolic Profile (BMP )on 10-06-2022 BUN/CRE 23.6 RATIO High 10-20 [facility] Comment on above: Performed By: #### L 100.0100, L500.2500, L501.9985 #### [facility] [address] [place], [address] CA,Total 9.1 mg/dL Normal 8.5-10.1 [facility] Comment on above: Performed By: #### L 100.0100, L500.2500, L501.9985 #### [facility] [address] [place], [address] Chloride [Moles/Vol] 107 mmol/L Normal 98-107 [facility] Comment on above: Performed By: #### L 100.0100, L500.2500, L501.9985 #### [facility] [address] [place], [address] CO2 [Moles/Vol] 24.0 mmol/L Normal 21.0-32.0 [facility] Comment on above: Performed By: #### L 100.0100, L500.2500, L501.9985 #### [facility] [address] [place], [address] Creatinine [Mass/Vol] 1.10 mg/dL Normal 0.70-1.30 [facility] Comment on above: Result Comment: The validity of the calculated GFR GFRAA in patients over 70 years has not been determined. Clinical correlation is essential. Performed By: #### L 100.0100, L500.2500, L501.9985 #### [facility] [address] [place], [address] EST GFR - AA 84 mL/min Normal >60 [facility] Comment on above: Result Comment: Afri can Marshallese GFR Calc Performed By: #### L 100.0100, L500.2500, L501.9985 #### [facility] [address] [place], [address] GAP 8 Normal 5-15 [facility] Comment on above: Performed By: #### L 100.0100, L500.2500, L501.9985 #### [facility] [address] [place], [address] GFR/1.73 sq M.predicted among non-blacks MDRD (S/P/Bld) [Vol rate/Area] 69 mL/min/{1.73_m2} Normal >60 [facility] Comment on above: Result Comment: Non- GFR Calc Performed By: #### L 100.0100, L500.2500, L501.9985 #### [facility] [address] [place], [address] Glucose [Mass/Vol] 140 mg/dL High 74-106 [facility] Comment on above: Result Comment: Fast ing Glucose result greater than or equal to 126 mg/dL suggests DIABETES MELLITUS per A.D.A. criteria. Performed By: #### L 100.0100, L500.2500, L501.9985 #### [facility] [address] [place], [address] Potassium [Moles/Vol] 4.0 mmol/L Normal 3.5-5.1 [facility] Comment on above: Performed By: #### L 100.0100, L500.2500, L501.9985 #### [facility] [address] [place], [address] Sodium [Moles/Vol] 139 mmol/L Normal 136-145 [facility] Comment on above: Performed By: #### L 100.0100, L500.2500, L501.9985 #### [facility] [address] [place], [address] Urea nitrogen [Mass/Vol] 26 mg/dL High 7-18 [facility] Comment on above: Performed By: #### L 100.0100, L500.2500, L501.9985 #### [facility] [address] [place], [address] Basophil percentageon 2021 Basophils/100 WBC (Bld) 0.7 % 0-1 [facility] Work Phone: [phone] Chloride [Moles/Vol] 107 mmol/L 98-107 [facility] Work Phone: [phone] Eosinophils/100 WBC (Bld) 1.0 % 0-5 [facility] Work Phone: [phone] Glucose [Mass/Vol] 140 mg/dL 74-106 [facility] Work Phone: Comment on above: Fasting Glucose resu lt greater than or equal to 126 mg/dL suggests DIABETES MELLITUS per A.D.A. criteria. Neutrophils (Bld) [#/Vol] 4.3 10*3/uL 2.0-7.7 [facility] Work Phone: Neutrophils/100 WBC (Bld) 75.2 % 47-70 [facility] Work Phone: [phone] Potassium [Moles/Vol] 4.0 mmol/L 3.5-5.1 [facility] Work Phone: [phone] Sodium [Moles/Vol] 139 mmol/L 136-145 [facility] Work Phone: [phone] WBC (Bld) [#/Vol] 5.8 10*3/uL 4.4-11.0 [facility] Work Phone: Blood erythrocytes count (nu mber/volume)on 10-06-2022 RBC (Bld) [#/Vol] 4.36 10*6/uL 4.6-6.2 [facility] Work Phone: Blood hemoglobin measurement (mass/volume)on 10-06-2022 Hemoglobin (Bld) [Mass/Vol] 12.4 g/dL 13.0-16.5 [facility] Work Phone: [phone] Blood lymphocytes/100 leukoc yteson 10-06-2022 Lymphocytes/100 WBC (Bld) 15.5 % 19-41 [facility] Work Phone: [phone] Blood monocytes/100 leukocyt eson 10-06-2022 Monocytes/100 WBC (Bld) 7.1 % 0-10 [facility] Work Phone: Blood platelet mean volumeon 10-06-2022 Platelet mean volume (Bld) [Entitic vol] 9.6 fL 6.2-12.0 [facility] Work Phone: CBC W/Diff, Automatedon -0 Absolute Lymph 0.89 X10 3/uL Normal 0.83-4.51 [facility] Comment on above: Performed By: #### L 100.0100, L500.2500, L501.9985 #### [facility] [address] [place], [address] Absolute Neut 4.3 X10 3/uL Normal 2.0-7.7 [facility] Comment on above: Performed By: #### L 100.0100, L500.2500, L501.9985 #### [facility] [address] [place], [address] Basophils/100 WBC (Bld) 0.7 % Normal 0-1 [facility] Comment on above: Performed By: #### L 100.0100, L500.2500, L501.9985 #### [facility] [address] [place], [address] Eosinophils/100 WBC (Bld) 1.0 % Normal 0-5 [facility] Comment on above: Performed By: #### L 100.0100, L500.2500, L501.9985 #### [facility] [address] [place], [address] Erythrocyte distribution width (RBC) [Ratio] 15.4 % High 11.6-14.6 [facility] Comment on above: Performed By: #### L 100.0100, L500.2500, L501.9985 #### [facility] [address] [place], [address] Hematocrit (Bld) [Volume fraction] 40.5 % Normal 40-54 [facility] Comment on above: Performed By: #### L 100.0100, L500.2500, L501.9985 #### [facility] [address] [place], [address] Hemoglobin (Bld) [Mass/Vol] 12.4 g/dL Low 13.0-16.5 [facility] Comment on above: Performed By: #### L 100.0100, L500.2500, L501.9985 #### [facility] [address] [place], [address] IG% 0.500 Normal 0.0-0.9 [facility] Comment on above: Result Comment: IG% - Immature Granulocytes (promyelocytes, myelocytes and metamyelocytes) > 1% indicates that a LEFT SHIFT is Present. Performed By: #### L 100.0100, L500.2500, L501.9985 #### [facility] [address] [place], [address] Lymphocytes/100 WBC (Bld) 15.5 % Low 19-41 [facility] Comment on above: Performed By: #### L 100.0100, L500.2500, L501.9985 #### [facility] [address] [place], [address] MCH (RBC) [Entitic mass] 28.4 pg Normal 27.0-32.0 [facility] Comment on above: Performed By: #### L 100.0100, L500.2500, L501.9985 #### [facility] [address] [place], [address] MCHC (RBC) [Mass/Vol] 30.6 g/dL Low 32-36 [facility] Comment on above: Performed By: #### L 100.0100, L500.2500, L501.9985 #### [facility] [address] [place], [address] MCV (RBC) [Entitic vol] 92.9 fL Normal 80-94 [facility] Comment on above: Performed By: #### L 100.0100, L500.2500, L501.9985 #### [facility] [address] [place], [address] Monocytes/100 WBC (Bld) 7.1 % Normal 0-10 [facility] Comment on above: Performed By: #### L 100.0100, L500.2500, L501.9985 #### [facility] [address] [place], [address] Neutrophils/100 WBC (Bld) 75.2 % High 47-70 [facility] Comment on above: Performed By: #### L 100.0100, L500.2500, L501.9985 #### [facility] [address] [place], [address] Nucleated RBC (Bld) [#/Vol] 0 10*3/uL Normal 0-5 [facility] Comment on above: Performed By: #### L 100.0100, L500.2500, L501.9985 #### [facility] [address] [place], [address] Platelet mean volume (Bld) [Entitic vol] 9.6 fL Normal 6.2-12.0 [facility] Comment on above: Performed By: #### L 100.0100, L500.2500, L501.9985 #### [facility] [address] [place], [address] Platelets (Bld) [#/Vol] 350 10*3/uL Normal 150-450 [facility] Comment on above: Performed By: #### L 100.0100, L500.2500, L501.9985 #### [facility] [address] [place], [address] RBC (Bld) [#/Vol] 4.36 10*6/uL Low 4.6-6.2 [facility] Comment on above: Performed By: #### L 100.0100, L500.2500, L501.9985 #### [facility] [address] [place], [address] RDW SD 52.5 fl High 35.1-43.9 [facility] Comment on above: Performed By: #### L 100.0100, L500.2500, L501.9985 #### [facility] [address] [place], [address] WBC (Bld) [#/Vol] 5.8 10*3/uL Normal 4.4-11.0 [facility] Comment on above: Performed By: #### L 100.0100, L500.2500, L501.9985 #### [facility] [address] [place], [address] Determination of erythrocyte mean corpuscular volume (MCV)on 10-06-2022 MCV (RBC) [Entitic vol] 92.9 fL 80-94 [facility] Work Phone: Hematocrit Auto (Bld) [Volum e fraction]on 10-06-2022 Hematocrit (Bld) [Volume fraction] 40.5 % 40-54 [facility] Work Phone: Hemoglobin A1con 10-06-2022 HbA1c (Bld) [Mass fraction] 7.0 % High 3.8-5.6 [facility] Comment on above: Result Comment: Norm al < 5.7 % Prediabetic 5.7 - 6.4 % Diabetic >or= 6.5 % Please note range changes. Performed By: #### L 100.0100, L500.2500, L501.9985 #### [facility] [address] [place], [place], [address] Laboratory - Chemistry and C hemistry - challengeon 10-06-2022 CO2 [Moles/Vol] 24.0 mmol/L 21.0-32.0 [facility] Work Phone: Urea nitrogen/Creatinine [Mass ratio] 23.6 mg/mg 10-20 [facility] Work Phone: Laboratory - Hematology and Cell countson 10-06-2022 Erythrocyte distribution width (RBC) [Entitic vol] 52.5 fL 35.1-43.9 [facility] Work Phone: Erythrocyte distribution width (RBC) [Ratio] 15.4 % 11.6-14.6 [facility] Work Phone: Immature granulocytes/100 WBC (Bld) 0.500 % 0.0-0.9 [facility] Work Phone: Comment on above: IG% - Immature Granu locytes (promyelocytes, myelocytes and metamyelocytes) > 1% indicates that a LEFT SHIFT is Present. MCH (RBC) [Entitic mass] 28.4 pg 27.0-32.0 [facility] Work Phone: Nucleated RBC/100 WBC (Bld) [Ratio] 0 % 0-5 [facility] Work Phone: MCHC Auto (RBC) [Mass/Vol]on 10-06-2022 MCHC (RBC) [Mass/Vol] 30.6 g/dL 32-36 [facility] Work Phone: No Panel Informationon 10-06 Estimated GFR (MDRD) Amer 84 mL/min >60 [facility] Work Phone: Comment on above: GFR Calc Estimated GFR (MDRD) Non-Af Amer 69 mL/min >60 [facility] Work Phone: Comment on above: Non- GFR Calc Platelets bldon 10-06-2022 Platelets (Bld) [#/Vol] 350 10*3/uL 150-450 [facility] Work Phone: Serum or plasma calcium trenton urement (mass/volume)on 10-06-2022 Calcium [Mass/Vol] 9.1 mg/dL 8.5-10.1 [facility] Work Phone: Serum or plasma creatinine m easurement (mass/volume)on 10-06-2022 Creatinine [Mass/Vol] 1.10 mg/dL 0.70-1.30 [facility] Work Phone: Comment on above: The validity of the calculated GFR & GFRAA in patients over 70 years has not been determined. Clinical correlation is essential. Serum or plasma urea nitroge n measurement (mass/volume)on 10-06-2022 Urea nitrogen [Mass/Vol] 26 mg/dL 7-18 [facility] Work Phone: Thin prep Papanicolaou smear with manual screeningon 10-06-2022 Thin prep Papanicolaou smear with manual screening 8 5-15 [facility] Work Phone: Whole blood hemoglobin A1c/t otal hemoglobin ratio (mass fraction)on 10-06-2022 HbA1c (Bld) [Mass fraction] 7.0 % 3.8-5.6 [facility] Work Phone: Comment on above: Normal < 5.7 % Predi abetic 5.7 - 6.4 % Diabetic >or= 6.5 % Please note range changes. ED NOTEon 09-23-2022 ED NOTE HNO ID: [id number] Author: Betty Nagel RN Service: Emergency Medicine Author Type: Registered Nurse Type: ED Notes Filed: 10/04/2022 11:47 AM Note Text: Routine chart audit. [facility] ED NOTE HNO ID: [id number] Author: Laurie Bullard RN Service: Emergency Medicine Author Type: Registered Nurse Type: ED Notes Filed: 09/23/2022 12:48 PM Note Text: DC instructions reviewed. Pt verbalizes understanding. [facility] ED NOTE HNO ID: [id number] Author: Laurie Bullard RN Service: Emergency Medicine Author Type: Registered Nurse Type: ED Notes Filed: 09/23/2022 12:45 PM Note Text: at bedside to apply splint to pts right ankle. [facility] ED NOTE HNO ID: [id number] Author: Laurie Bullard RN Service: Emergency Medicine Author Type: Registered Nurse Type: ED Notes Filed: 09/23/2022 1:02 PM Note Text: Grapefruit sized bruise to right upper buttocks. Right lower leg, ankle and foot with a large amount of swelling and bruising ins different shades of yellow/purple. [facility] ED NOTE HNO ID: [id number] Author: Laurie Bullard RN Service: Emergency Medicine Author Type: Registered Nurse Type: ED Notes Filed: 09/23/2022 11:47 AM Note Text: Pt presents to the ED for right ankle, foot and leg swelling that started after he twisted if while he fell out of a vehicle 8 days ago. [facility] ED PROV NOTEon 09-23-2022 ED PROV NOTE HNO ID: [id number] Author: Mata Gaston MD Service: Emergency Medicine Author Type: Physician Type: ED Provider Notes Filed: 09/23/2022 12:44 PM Note Text: ED Provider Note Patient Name: Heike Carcamo : 1945 SERVICE DATE: 09/23/22 History No chief complaint on file. Heike Carcamo is a 76 year old male with history of multiple chronic medical problems who presents with No chief complaint on file.. Patient took OTC medications prior to arrival. - Symptoms began 8 days prior to arrival. - Severity: moderate - Timing: constant - Quality: sore and swollen - No chief complaint on file. is exacerbated by movement palpation. - No chief complaint on file. is not exacerbated by elevation. - Symptoms are associated with swelling and discoloration. - Symptoms are not associated with any other injury. - Improved by nothing. - Not improved by rest Patient states that about 8 days ago he was getting into his jeep he has knee problems and he was actually putting his left leg and first which is his normal technique and when he did this his right knee gave out and he fell and had immediate pain in the right leg/ankle. Since then he has been elevating icing taking Aleve but it is not helped and he continues to be swollen and discolored. He has a small bruise on his right buttock but no other injuries. He denies hitting his head or losing consciousness. Patient does take Plavix.. No past medical history on file. No past surgical history on file. No family history on file. Social History Tobacco Use - Smoking status: Not on file - Smokeless tobacco: Not on file Substance and Sexual Activity - Alcohol use: Not on file - Drug use: Not on file - Sexual activity: Not on file ALLERGIES Not on File Review of Systems Constitutional: Negative for chills and fever. Gastrointestinal: Negative for nausea and vomiting. Skin: Negative for color change, pallor, rash and wound. Allergic/Immunologic: Negative for environmental allergies, food allergies and immunocompromised state. Neurological: Negative for weakness and numbness. Psychiatric/Behavioral : Negative for confusion. The patient is not nervous/anxious. Physical Exam Vitals [09/23/22 1138] BP Pulse Temp Temp src Resp SpO2 Weight Height 178/67 90 36.8 ?C (98.3 ?F) Temporal 16 99 % 97.3 kg (214 lb 6.4 oz) -- Physical Exam Vitals and nursing note reviewed. Constitutional: General: He is not in acute distress. Appearance: Normal appearance. He is not ill-appearing, toxic-appearing or diaphoretic. HENT: Head: Normocephalic and atraumatic. Right Ear: External ear normal. Left Ear: External ear normal. Eyes: General: No scleral icterus. Right eye: No discharge. Left eye: No discharge. Extraocular Movements: Extraocular movements intact. Pulmonary: Effort: Pulmonary effort is normal. No respiratory distress. Skin: General: Skin is warm and dry. Capillary Refill: Capillary refill takes less than 2 seconds. Findings: Bruising and erythema present. Comments: Right leg is diffusely edematous there is discoloration consistent with ecchymosis going through stages of healing but there is also some erythema over the dorsal foot and ankle. Skin is relatively dry and a few small excoriations but no significant open wounds. Neurological: General: No focal deficit present. Mental Status: He is alert and oriented to person, place, and time. Psychiatric: Mood and Affect: Mood normal. Behavior: Behavior normal. Thought Content: Thought content normal. Judgment: Judgment normal. Diagnostic Testing ED Labs Ordered and Reviewed - No data to display SPLINT APPLICATION Date/Time: 09/23/2022 12:36 PM Performed by: Mata Gaston MD Authorized by: Mata Gaston MD Pre-procedure details: Sensation: Normal Skin color: Ecchymotic Procedure details: Laterality: Right Location: Ankle Ankle: R ankle Splint type: Short leg Supplies: Elastic bandage, Ortho-Glass and cotton padding Post-procedure details: Pain: Improved Sensation: Normal Skin color: Ecchymotic well-perfused Patient tolerance of procedure: Tolerated well, no immediate complications ED Course / Clinical Impression Clinical Impressions as of 09/23/22 1243 Closed fracture of right ankle, initial encounter MDM / Disposition / Plan Distal right fibular fracture. Posterior splint applied walker/wheelchair nonweightbearing orthopedic referral. Ice elevate rest. Patient is diabetic there is some erythema on the skin and some irritation so will empirically start him on Keflex but I do suspect some of the reddish discoloration is probably from the contusion. If he does develop fevers chills any infectious symptoms return sooner. Patient not a good candidate for crutches. Advised discontinue Aleve May take plain Tylenol will prescribe as needed tramadol if needed. Disposition T (more content not included)... Normal [facility] XR TIBIA FIBULA 2V AP/LAT RT on 09-23-2022 XR TIBIA FIBULA 2V AP/LAT RT * * *Final Report* * * DATE OF EXAM: Sep 23 2022 12:11PM LDX 5266 - XR TIBIA FIBULA 2V AP/LAT RT / PROCEDURE REASON: Lower leg trauma, no prior imaging * * * * Physician Interpretation * * * * EXAM TITLE: XR TIBIA FIBULA 2V AP/LAT RT DATE: 09/23/2022 COMPARISON: None. CLINICAL INDICATION/HISTORY: Injury, right leg pain TECHNIQUE: AP and lateral views of the right tibia and fibula FINDINGS: There is an oblique fracture of the distal fibular shaft with approximately 6 mm of posterolateral displacement of the distal fragment. There is lateral displacement of the talus relative to the distal tibia leading to widening of the medial ankle mortise. The medial malleolus is not seen in its entirety and a dedicated ankle series is recommended for more optimal evaluation. No other acute bony abnormality. No arthritic change. There is soft tissue swelling at the ankle. IMPRESSION: 1. Mildly displaced oblique fracture of the distal fibular shaft. 2. Widening of the medial ankle mortise with lateral displacement of the talus. Dedicated ankle series recommended to better evaluate the medial malleolus and exclude underlying fracture. Stamp Pad Finisher: TAYLOR Transcribe Date/Time: Sep 23 2022 12:47P Dictated by : VICKY ELLER MD This examination was interpreted and the report reviewed and electronically signed by: VICKY ELLER MD on Sep 23 2022 12:51PM EST [id number] Normal [facility] Vital Signs Date Time Vital Sign Value Performing Clinician Facility 09-18-2025 09:32-0400 Body height 170.2 cm Paulo Jimenez [employer] Work Phone: [facility] 09-18-2025 09:32-0400 Body mass index (BMI) [Ratio] 35.55 kg/m2 Paulo Jimenez [employer] Work Phone: [facility] 09-18-2025 09:32-0400 Body temperature 98.29 [degF] Paulo Jimenez [employer] Work Phone: [employer] 09-18-2025 09:32-0400 Body weight 102.97 kg Paulo Jimenez [employer] Work Phone: [employer] 09-18-2025 09:32-0400 Diastolic blood pressure 53 mm[Hg] Paulo Jimenez DO Work Phone: [facility] 09-18-2025 09:32-0400 Heart rate 100 /min Paulo Rasmussena DO Work Phone: [facility] 09-18-2025 09:32-0400 SaO2% (BldA) [Mass fraction] 100 % Paulo Rasmussena DO Work Phone: [facility] 09-18-2025 09:32-0400 Systolic blood pressure 131 mm[Hg] Paulo Jimenez DO Work Phone: [facility] 05-15-2025 13:05-0400 Body height 170.2 cm Paulo Jimenez DO Work Phone: [facility] 05-15-2025 13:05-0400 Body mass index (BMI) [Ratio] 36.34 kg/m2 Paulo Jimenez DO Work Phone: [facility] 05-15-2025 13:05-0400 Body temperature 97.9 [degF] Paulo Jimenez DO Work Phone: [facility] 05-15-2025 13:05-0400 Body weight 105.23 kg Paulo Jimenez DO Work Phone: [facility] 05-15-2025 13:05-0400 Diastolic blood pressure 72 mm[Hg] Paulo Jimenez DO Work Phone: [facility] 05-15-2025 13:05-0400 Heart rate 96 /min Paulo Jimenez DO Work Phone: [facility] 05-15-2025 13:05-0400 SaO2% (BldA) [Mass fraction] 98 % Paulo Rasmussena DO Work Phone: [facility] 05-15-2025 13:05-0400 Systolic blood pressure 124 mm[Hg] Paulo Rasmussena DO Work Phone: [facility] 01-09-2025 09:03-0500 Body height 170.2 cm Paulo Rasmussena DO Work Phone: [facility] 01-09-2025 09:03-0500 Body mass index (BMI) [Ratio] 35.71 kg/m2 Paulo Jimenez DO Work Phone: [facility] 01-09-2025 09:03-0500 Body temperature 98.71 [degF] Paulo Rasmussena DO Work Phone: [facility] 01-09-2025 09:03-0500 Body weight 103.42 kg Paulo Rasmussena DO Work Phone: [facility] 01-09-2025 09:03-0500 Diastolic blood pressure 76 mm[Hg] Paulo Rasmussena DO Work Phone: [facility] 01-09-2025 09:03-0500 Heart rate 86 /min Paulo Jimenez DO Work Phone: [facility] 01-09-2025 09:03-0500 SaO2% (BldA) [Mass fraction] 98 % Paulo Jimenez DO Work Phone: [facility] 01-09-2025 09:03-0500 Systolic blood pressure 121 mm[Hg] Paulo Rasmussena DO Work Phone: [facility] 09-05-2024 08:53-0400 Body height 170.2 cm Paulo Jimenez DO Work Phone: [facility] 09-05-2024 08:53-0400 Body mass index (BMI) [Ratio] 35.55 kg/m2 Paulo Rasmussena DO Work Phone: [facility] 09-05-2024 08:53-0400 Body temperature 97.2 [degF] Paulo Rasmussena DO Work Phone: [facility] 09-05-2024 08:53-0400 Body weight 102.97 kg Paulo Rasmussena DO Work Phone: [facility] 09-05-2024 08:53-0400 Diastolic blood pressure 75 mm[Hg] Paluo Rasmussena DO Work Phone: [facility] 09-05-2024 08:53-0400 Heart rate 65 /min Paulo Jimenez DO Work Phone: [facility] 09-05-2024 08:53-0400 SaO2% (BldA) [Mass fraction] 97 % Paulo Jimenez DO Work Phone: [facility] 09-05-2024 08:53-0400 Systolic blood pressure 117 mm[Hg] Paulo Jimenez DO Work Phone: [facility] 07-26-2024 09:22-0400 Body mass index (BMI) [Ratio] 35.71 kg/m2 [facility] 07-26-2024 09:22-0400 Body weight 103.42 kg [facility] 07-26-2024 09:22-0400 Diastolic blood pressure 68 mm[Hg] [facility] 07-26-2024 09:22-0400 Heart rate 80 /min [facility] 07-26-2024 09:22-0400 Systolic blood pressure 128 mm[Hg] [facility] 05-08-2024 08:31-0400 Body height 170.2 cm Paulo Jimenez DO Work Phone: [facility] 05-08-2024 08:31-0400 Body mass index (BMI) [Ratio] 35.55 kg/m2 Paulo Jimenez DO Work Phone: [facility] 05-08-2024 08:31-0400 Body temperature 97.5 [degF] Paulo Jimenez DO Work Phone: [facility] 05-08-2024 08:31-0400 Body weight 102.97 kg Paulo Jimenez DO Work Phone: [facility] 05-08-2024 08:31-0400 Diastolic blood pressure 62 mm[Hg] Paulo Jimenez DO Work Phone: [facility] 05-08-2024 08:31-0400 Heart rate 86 /min Paulo Jimenez DO Work Phone: [facility] 05-08-2024 08:31-0400 SaO2% (BldA) [Mass fraction] 99 % Paulo Jimenez DO Work Phone: [facility] 05-08-2024 08:31-0400 Systolic blood pressure 160 mm[Hg] Paulo Jimenez DO Work Phone: [facility] 01-06-2024 08:50-0500 Body mass index (BMI) [Ratio] 35.24 kg/m2 [facility] 01-06-2024 08:50-0500 Body temperature 97.3 [degF] Paulo Jimenez DO Work Phone: [facility] 01-06-2024 08:50-0500 Body weight 102.06 kg Paulo Jimenez DO Work Phone: [facility] 01-06-2024 08:50-0500 Diastolic blood pressure 60 mm[Hg] [facility] 01-06-2024 08:50-0500 Heart rate 85 /min Paulo Jimenez DO Work Phone: [facility] 01-06-2024 08:50-0500 SaO2% (BldA) [Mass fraction] 98 % Paulo Jimenez DO Work Phone: [employer] 01-06-2024 08:50-0500 Systolic blood pressure 118 mm[Hg] Paulo Jimenez DO Work Phone: [employer] 09-06-2023 08:50-0400 Body height 170.2 cm Doug Baker PA-C Work Phone: [employer] 09-06-2023 08:50-0400 Body mass index (BMI) [Ratio] 34.77 kg/m2 Doug SORIA-C Work Phone: [employer] 09-06-2023 08:50-0400 Body temperature 98.6 [degF] Doug SORIA-C Work Phone: [facility] 09-06-2023 08:50-0400 Body weight 100.7 kg Doug MAURERC Work Phone: [employer] 09-06-2023 08:50-0400 Diastolic blood pressure 59 mm[Hg] Doug Baker PA-C Work Phone: [facility] 09-06-2023 08:50-0400 Heart rate 101 /min Doug Baker PA-C Work Phone: [facility] 09-06-2023 08:50-0400 SaO2% (BldA) [Mass fraction] 97 % Doug Baker PA-C Work Phone: [facility] 09-06-2023 08:50-0400 Systolic blood pressure 115 mm[Hg] Doug Baker PA-C Work Phone: [facility] 05-06-2023 09:05-0400 Diastolic blood pressure 64 mm[Hg] Doug Baker PA-C Work Phone: [facility] 05-06-2023 09:05-0400 Systolic blood pressure 168 mm[Hg] Doug Baker PA-C Work Phone: [facility] 05-06-2023 08:44-0400 Body height 170.2 cm Doug Baker PA-C Work Phone: [facility] 05-06-2023 08:44-0400 Body mass index (BMI) [Ratio] 34.46 kg/m2 Doug Baker PA-C Work Phone: [facility] 05-06-2023 08:44-0400 Body temperature 99.5 [degF] Doug Baker PA-C Work Phone: [facility] 05-06-2023 08:44-0400 Body weight 99.79 kg Doug Baker PA-C Work Phone: [facility] 05-06-2023 08:44-0400 Heart rate 73 /min Doug Baker PA-C Work Phone: [facility] 05-06-2023 08:44-0400 SaO2% (BldA) [Mass fraction] 99 % Doug Baker PA-C Work Phone: [facility] 01-07-2023 08:50-0500 Diastolic blood pressure 72 mm[Hg] Wesley Hampton DO Work Phone: [facility] 01-07-2023 08:50-0500 Systolic blood pressure 142 mm[Hg] Wesley Hampton DO Work Phone: [facility] 01-07-2023 08:41-0500 Body height 170.2 cm Wesley Hampton DO Work Phone: [facility] 01-07-2023 08:41-0500 Body mass index (BMI) [Ratio] 33.05 kg/m2 Wesley Hampton DO Work Phone: [facility] 01-07-2023 08:41-0500 Body temperature 97.81 [degF] Wesley Hampton DO Work Phone: [facility] 01-07-2023 08:41-0500 Body weight 95.71 kg Wesley Hampton DO Work Phone: [facility] 01-07-2023 08:41-0500 Heart rate 52 /min Wesley Hampton DO Work Phone: [facility] 01-07-2023 08:41-0500 SaO2% (BldA) [Mass fraction] 98 % Wesley Hampton DO Work Phone: [facility] 10-14-2022 18:59-0500 Diastolic blood pressure 98 mm[Hg] [facility] Work Phone: 10-14-2022 18:59-0500 Heart rate 93 /min [facility] Work Phone: 10-14-2022 18:59-0500 Respiratory rate 18 /min [facility] Work Phone: 10-14-2022 18:59-0500 SaO2% (BldA) [Mass fraction] 100 % [facility] Work Phone: 10-14-2022 18:59-0500 Systolic blood pressure 137 mm[Hg] [facility] Work Phone: 10-14-2022 18:15-0500 Body temperature 97.9 [degF] [facility] Work Phone: 10-14-2022 16:46-0500 Inhaled oxygen flow rate 2 L/min [facility] Work Phone: 10-14-2022 13:16-0500 Body height 170.18 cm [facility] Work Phone: 10-14-2022 13:16-0500 Body mass index (BMI) [Ratio] 32.8 kg/m2 [facility] Work Phone: 10-14-2022 [id number] Body weight 95 kg [facility] Work Phone: Encounters Encounter Date Encounter Type Care Provider Facility Start: 09-18-2025 End: 09-18-2025 Telephone encounter Paulo Jimenez DO Work Phone: [facility] [place] Comment on above: Referral [place] guadalupe / Domenico) Start: 09-18-2025 End: 09-18-2025 Subsequent hospital visit by physician Paulo Jimenez DO Work Phone: 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, without long-term current use of insulin, macular edema presence unspecified (HCC) (Primary Dx); Essential hypertension; Hypercholesterolemia; Anxiety and depression; Depression, unspecified depression type; History of CVA (cerebrovascular accident); LOPEZ (dyspnea on exertion) Start: 09-18-2025 End: 09-18-2025 ambulatory [facility] Start: 05-20-2025 End: 07-20-2025 Follow-up encounter Paulo Jimenez DO Work Phone: [facility] [place] Comment on above: CBC auto differentia l, Comprehensive metabolic panel, Hemoglobin A1c, TSH Start: 05-15-2025 End: 05-15-2025 Office outpatient visit 40 minutes Paulo Jimenez DO Work Phone: [facility] [place] Comment on above: 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, without long-term current use of insulin, macular edema presence unspecified (HCC) (Primary Dx); History of CVA (cerebrovascular accident); Essential hypertension; Hypercholesterolemia; Anxiety and depression; Lumbar radiculopathy, chronic Start: 05-15-2025 End: 05-15-2025 ambulatory [facility] Start: 04-20-2025 End: 04-25-2025 Refill Paulo Jimenez DO Work Phone: [facility] [place] Comment on above: Type 2 diabetes juan jose itus without complication, without long- term current use of insulin (HCC) Start: 01-14-2025 End: 01-14-2025 Orders Only Paulo Jimenez DO Work Phone: [facility] [place] Comment on above: Type 2 diabetes juan jose itus without complication, without long- term current use of insulin (CMS/HCC) (HCC) Start: 01-09-2025 End: 01-09-2025 Office outpatient visit 25 minutes Paulo Jimenez DO Work Phone: [facility] [place] Comment on above: Type 2 diabetes juan jose itus without complication, without long- term current use of insulin (CMS/HCC) (HCC) (Primary Dx); Essential hypertension; Hypercholesterolemia; Anxiety and depression; Cerebrovascular accident (CVA), unspecified mechanism (HCC); Type 2 diabetes mellitus with other circulatory complications (HCC); Palpitation; Aortic heart murmur Start: 01-09-2025 End: 01-09-2025 ambulatory [facility] Start: 12-29-2024 End: 12-29-2024 Refill Paulo Jimenez DO Work Phone: [facility] Comment on above: Hypercholesterolemia Start: 09-10-2024 End: 09-10-2024 Orders Only Paulo Jimenez DO Work Phone: [facility] Comment on above: Hypercholesterolemia Start: 09-05-2024 End: 09-05-2024 Office outpatient visit 25 minutes Paulo Jimenez DO Work Phone: [facility] Comment on above: Type 2 diabetes juan jose itus without complication, without long- term current use of insulin ([facility]/HCC) ([facility]) (Primary Dx); Essential hypertension; Hypercholesterolemia; Anxiety and depression; Cerebrovascular accident (CVA), unspecified mechanism ([facility]); Chews tobacco Start: 08-28-2024 End: 08-28-2024 Refill Paulo Jimenez DO Work Phone: [facility] Comment on above: Essential hypertensi on Start: 08-20-2024 End: 08-20-2024 Orders Only Paulo Jimenez DO Work Phone: [facility] Start: 08-16-2024 End: 08-16-2024 Subsequent hospital visit by physician Paulo Jimenez DO Work Phone: [facility] Vascular Lab Comment on above: Bilateral carotid br uits PAD (peripheral maritza ry disease) ([facility]) Start: 08-08-2024 End: 08-29-2024 Telephone encounter Paulo Jimenez DO Work Phone: [facility] Comment on above: Other (fyi) Start: 07-28-2024 End: 08-01-2024 Telephone encounter Paulo Jimenez DO Work Phone: [facility] Central Scheduling Start: 07-26-2024 End: 07-26-2024 Clinical Support [facility] Schedule [facility] Family Medicine Comment on above: Essential hypertensi on Start: 05-08-2024 Telephone encounter Paulo koehler DO Work Phone: [facility] Comment on above: Orders (TAJ B/L Legs / Carotid doppler) Start: 05-08-2024 End: 05-08-2024 Office outpatient visit 25 minutes Paulo Ervin Barbara DO Work Phone: [facility] Comment on above: Type 2 diabetes juan jose itus without complication, without long- term current use of insulin (CMS/HCC) (HCC) (Primary Dx); Essential hypertension; Hypercholesterolemia; Anxiety and depression; Cerebrovascular accident (CVA), unspecified mechanism (HCC); PAD (peripheral artery disease) (HCC); Chews tobacco; Bilateral carotid bruits Start: 04-19-2024 Telephone encounter Paulo Mueller Liam koehler DO Work Phone: [facility] Clinical Communication Comment on above: Orders (Vascular US carotid artery duplex bilateral/Paulo Jimenez, DO/ordered 01/06/24) Start: 01-06-2024 Telephone encounter Paulo Ervin Liam koehler DO Work Phone: [facility] Comment on above: Orders (Carotid dopp ler) Start: 01-06-2024 End: 01-06-2024 Assay of hemosiderin, quant Paulo Ervin Barbara DO Work Phone: [facility] Start: 01-06-2024 End: 01-06-2024 Patient encounter procedure Paulo Ervin Barbara DO Work Phone: [facility] Comment on above: Encounter for subseq uent annual wellness visit (AWV) in Medicare patient (Primary Dx); Essential hypertension; Hypercholesterolemia; Cerebrovascular accident (CVA), unspecified mechanism (HCC); Type 2 diabetes mellitus without complication, without long-term current use of insulin ([facility]/HCC) (HCC); Anxiety and depression; Bilateral carotid bruits; Chews tobacco; Routine general medical examination at health care facility Start: 09-29-2023 Refill Paulo monet DO Work Phone: [facility] Medicine Start: 09-06-2023 End: 09-06-2023 Office outpatient visit 25 minutes Doug Baker PA-C Work Phone: [facility] Comment on above: Flu vaccine need (Pr imary Dx); Essential hypertension; Hypercholesterolemia; Cerebrovascular accident (CVA), unspecified mechanism (HCC); Type 2 diabetes mellitus without complication, without long-term current use of insulin (CMS/HCC) (HCC); Anxiety and depression Start: 07-02-2023 Refill Paulo Mueller Calixto monet DO Work Phone: [facility] Comment on above: Type 2 diabetes juan jose itus without complication, without long- term current use of insulin (CMS/HCC) (HCC) Start: 05-21-2023 Telephone encounter Paulo koehler DO Work Phone: [facility] Comment on above: Blood Pressure Check ; Release of Information Start: 05-06-2023 End: 05-06-2023 Office outpatient visit 25 minutes Doug Baker PA-C Work Phone: [facility] Comment on above: Type 2 diabetes juan jose itus without complication, without long- term current use of insulin (CMS/HCC) (HCC) (Primary Dx); Type 2 diabetes mellitus with other specified complication, without long-term current use of insulin (HCC); Anxiety and depression; Essential hypertension; Hypercholesterolemia; Cerebrovascular accident (CVA), unspecified mechanism (HCC); Colonoscopy refused; Screening for thyroid disorder; Rash and other nonspecific skin eruption; Elevated blood pressure reading with diagnosis of hypertension Start: 04-28-2023 Refill Wesley torres DO Work Phone: [facility] Start: 01-11-2023 Telephone encounter Wesley chen DO Work Phone: [facility] Comment on above: Orders (Holter Monit or) Start: 01-07-2023 End: 01-07-2023 Office outpatient visit 25 minutes Wesley Hampton DO Work Phone: [facility] Comment on above: Ectopic heartbeats ( Primary Dx); Bilateral carotid bruits; Anxiety and depression; Hypercholesterolemia; Chews tobacco; Type 2 diabetes mellitus without complication, without long-term current use of insulin (CMS/HCC) (HCC); Colonoscopy refused; Poor dentition Start: 11-02-2022 Refill Wesley torres DO Work Phone: [facility] Medicine Start: 10-14-2022 End: 10-14-2022 ambulatory Wesley Veronicataina Facility:[facility] Start: 10-14-2022 End: 10-14-2022 Admission to same day surgery center [facility] Start: 10-14-2022 End: 10-14-2022 ambulatory [facility] Work Phone: Start: 10-06-2022 End: 10-06-2022 ambulatory Rodger Evans Facility:[facility] Start: 09-23-2022 End: 09-23-2022 Emergency department patient visit MATA GASTON Facility:[facility] Procedures Date Procedure Procedure Detail Performing Clinician Start: 09-18-2025 Radiologic exam ches t 2 views Paulo Jimenez DO Work Phone: Start: 09-18-2025 Ecg routine ecg w/le ast 12 lds w/i&r Paulo De Lunabravorachna DO Work Phone: Start: 01-09-2025 Urine albumin quantitative Paulo Jimenez DO Work Phone: Start: 01-09-2025 Ecg routine ecg w/le ast 12 lds w/i&r Paulo De Lunabravorachna DO Work Phone: Start: 08-16-2024 Non-invasive physiol ogic study extremity 3 levls Paulo Jimenez DO Work Phone: Start: 08-16-2024 Duplex scan extracra nial art compl bi study Paulo Mueller Gradyrachna DO Work Phone: Start: 09-06-2023 Hemoglobin glycosylated a1c Doug Baker PA-C Work Phone: Start: 01-07-2023 Comprehensive metabo lic panel Wesley Hampton DO Work Phone: Start: 01-07-2023 Ecg routine ecg w/le ast 12 lds w/i&r Wesley Tapan Uribegustavo DO Work Phone: Start: 10-14-2022 Fluoroscopic guidance Start: 10-14-2022 Radiography of ankle Start: 10-14-2022 Open reduction with internal fixation Start: 05-12-2022 Lipid 1996 panel - S gabino or Plasma Wesley Uribegustavo DO Work Phone: Plan of Treatment Date Care Activity Detail Author Start: 09-18-2026 Diabetes: Estimated Glomerular Filtration Rate for [facility] Diabetes: Estimated Glomerular Filtration Rate for [employer] [facility] Start: 05-15-2026 Diabetes: Estimated Glomerular Filtration Rate for [facility] Diabetes: Estimated Glomerular Filtration Rate for [employer] [facility] Start: 01-09-2026 Diabetes: Estimated Glomerular Filtration Rate for [facility] Diabetes: Estimated Glomerular Filtration Rate for [employer] [facility] Start: 01-09-2026 Diabetes: Urine Albumin-Creatinine Ratio for [employer] Diabetes: Urine Albumin-Creatinine Ratio for [facility] Start: 11-14-2025 Depression Monitoring Depression Monitoring [facility] Start: 09-18-2025 End: 09-18-2026 CBC W Auto Differential panel - Blood CBC auto differential Lab Routine 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, without long-term current use of insulin, macular edema presence unspecified (HCC) Expected: 09/18/2025 (Approximate), Expires: 09/18/2026 [facility] System Work Phone: Comment on above: Expected: 09/18/2025 (Approximate), Expi res: 09/18/2026 Start: 09-18-2025 End: 09-18-2026 Comprehensive metabolic 1998 panel - Serum or Plasma Comprehensive metabolic panel Lab Routine 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, without long-term current use of insulin, macular edema presence unspecified (HCC) Expected: 09/18/2025 (Approximate), Expires: 09/18/2026 [facility] Comment on above: Expected: 09/18/2025 (Approximate), Expi res: 09/18/2026 Start: 09-18-2025 End: 09-18-2026 Hemoglobin A1c measurement Hemoglobin A1c Lab Routine 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, without long-term current use of insulin, macular edema presence unspecified (HCC) Expected: 09/18/2025 (Approximate), Expires: 09/18/2026 [facility] Comment on above: Expected: 09/18/2025 (Approximate), Expi res: 09/18/2026 Start: 09-18-2025 End: 09-18-2026 Lipid 1996 panel - Serum or Plasma Lipid panel Lab Routine 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, without long-term current use of insulin, macular edema presence unspecified (HCC) Expected: 09/18/2025 (Approximate), Expires: 09/18/2026 [facility] Comment on above: Expected: 09/18/2025 (Approximate), Expi res: 09/18/2026 Start: 09-18-2025 End: 09-18-2025 Patient encounter procedure 09/18/2025 9:40 AM EDT Office Visit [facility] [place] [address] [place] [address] Paulo Jimenez DO [address] [place] [address] [place] [address] [facility] Start: 09-05-2025 Diabetes: Estimated Glomerular Filtration Rate for [facility] Diabetes: Estimated Glomerular Filtration Rate for [facility] Start: 07-30-2025 COVID-19 Vaccine ( season) COVID-19 Vaccine ( season) [facility] Start: 07-30-2025 Influenza vaccination Influenza Vaccine (#1) [facility] Start: 07-10-2025 End: 07-10-2025 Patient encounter procedure 07/10/2025 9:30 AM EDT Office Visit [facility] [place] [address] [place] [id number] Paulo Jimenez, [address] [place] [address] [place] [address] [facility] Start: 07-09-2025 Depression Monitoring Depression Monitoring [facility] Start: 05-15-2025 End: 05-15-2026 CBC W Auto Differential panel - Blood CBC auto differential Lab Routine 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, without long-term current use of insulin, macular edema presence unspecified (HCC) Expected: 05/15/2025 (Approximate), Expires: 05/15/2026 [facility] Work Phone: Comment on above: Expected: 05/15/2025 (Approximate), Expi res: 05/15/2026 Start: 05-15-2025 End: 05-15-2026 Comprehensive metabolic 1998 panel - Serum or Plasma Comprehensive metabolic panel Lab Routine 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, without long-term current use of insulin, macular edema presence unspecified (HCC) Expected: 05/15/2025 (Approximate), Expires: 05/15/2026 [facility] Comment on above: Expected: 05/15/2025 (Approximate), Expi res: 05/15/2026 Start: 05-15-2025 End: 05-15-2026 Hemoglobin A1c measurement Hemoglobin A1c Lab Routine 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, without long-term current use of insulin, macular edema presence unspecified (HCC) Expected: 05/15/2025 (Approximate), Expires: 05/15/2026 [facility] Comment on above: Expected: 05/15/2025 (Approximate), Expi res: 05/15/2026 Start: 05-15-2025 End: 05-15-2026 Thyrotropin [Units/volume] in Serum or Plasma TSH Lab Routine 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, without long-term current use of insulin, macular edema presence unspecified (HCC) Expected: 05/15/2025 (Approximate), Expires: 05/15/2026 [facility] Comment on above: Expected: 05/15/2025 (Approximate), Expi res: 05/15/2026 Start: 05-15-2025 End: 05-15-2025 Patient encounter procedure 05/15/2025 1:00 PM EDT Office Visit [facility] [address] [place] [address] Barbara Paulo Mueller, DO [address] [place] [address] [facility] Start: 04-30-2025 Screening for malignant neoplasm of colon Colorectal Cancer Screening [facility] Comment on above: Postponed from 1945 (Patient Refus ed) Start: 01-09-2025 End: 01-09-2026 CBC W Auto Differential panel - Blood CBC auto differential Lab Routine Type 2 diabetes mellitus without complication, without long-term current use of insulin (CMS/HCC) (HCC) Expected: 01/09/2025 (Approximate), Expires: 01/09/2026 [facility] Work Phone: Comment on above: Expected: 01/09/2025 (Approximate), Expi res: 01/09/2026 Start: 01-09-2025 End: 01-09-2026 Comprehensive metabolic 1998 panel - Serum or Plasma Comprehensive metabolic panel Lab Routine Type 2 diabetes mellitus without complication, without long-term current use of insulin (CMS/HCC) (HCC) Expected: 01/09/2025 (Approximate), Expires: 01/09/2026 [facility] Comment on above: Expected: 01/09/2025 (Approximate), Expi res: 01/09/2026 Start: 01-09-2025 End: 01-09-2026 Hemoglobin A1c measurement Hemoglobin A1c Lab Routine Type 2 diabetes mellitus without complication, without long-term current use of insulin (CMS/HCC) (HCC) Expected: 01/09/2025 (Approximate), Expires: 01/09/2026 [facility] Comment on above: Expected: 01/09/2025 (Approximate), Expi res: 01/09/2026 Start: 01-09-2025 End: 01-09-2026 Lipid 1996 panel - Serum or Plasma Lipid panel Lab Routine Type 2 diabetes mellitus without complication, without long-term current use of insulin (CMS/HCC) (HCC) Expected: 01/09/2025 (Approximate), Expires: 01/09/2026 [facility] Comment on above: Expected: 01/09/2025 (Approximate), Expi res: 01/09/2026 Start: 01-09-2025 End: 01-09-2026 Magnesium [Mass/volume] in Serum or Plasma Magnesium Lab Routine Palpitation Expected: 01/09/2025 (Approximate), Expires: 01/09/2026 [facility] Comment on above: Expected: 01/09/2025 (Approximate), Expi res: 01/09/2026 Start: 01-09-2025 End: 01-09-2025 Patient encounter procedure 01/09/2025 9:30 AM EST Office Visit [facility] [place] [address] [place] [address] Paulo Jimenez DO [address] [place] [address] [facility] Start: 11-29-2024 Medicare Advantage Annual Wellness Visit Medicare Advantage Annual Wellness Visit [facility] Start: 09-05-2024 End: 09-05-2025 CBC W Auto Differential panel - Blood CBC auto differential Lab Routine Type 2 diabetes mellitus without complication, without long-term current use of insulin ([facility]/HCC) ([facility]) Expected: 09/05/2024 (Approximate), Expires: 09/05/2025 [facility] Work Phone: Comment on above: Expected: 09/05/2024 (Approximate), Expi res: 09/05/2025 Start: 09-05-2024 End: 09-05-2025 Comprehensive metabolic 1998 panel - Serum or Plasma Comprehensive metabolic panel Lab Routine Type 2 diabetes mellitus without complication, without long-term current use of insulin (CMS/HCC) (HCC) Expected: 09/05/2024 (Approximate), Expires: 09/05/2025 [facility] Comment on above: Expected: 09/05/2024 (Approximate), Expi res: 09/05/2025 Start: 09-05-2024 End: 09-05-2025 Hemoglobin A1c measurement Hemoglobin A1c Lab Routine Type 2 diabetes mellitus without complication, without long-term current use of insulin (CMS/HCC) ([facility]) Expected: 09/05/2024 (Approximate), Expires: 09/05/2025 [facility] Comment on above: Expected: 09/05/2024 (Approximate), Expi res: 09/05/2025 Start: 09-05-2024 End: 09-05-2025 Lipid 1996 panel - Serum or Plasma Lipid panel Lab Routine Type 2 diabetes mellitus without complication, without long-term current use of insulin (CMS/HCC) ([facility]) Expected: 09/05/2024 (Approximate), Expires: 09/05/2025 [facility] Comment on above: Expected: 09/05/2024 (Approximate), Expi res: 09/05/2025 Start: 09-05-2024 End: 09-05-2024 Patient encounter procedure [facility] Start: 07-30-2024 COVID-19 Vaccine ( season) COVID-19 Vaccine () [facility] Start: 07-30-2024 COVID-19 Vaccine ( season) COVID-19 Vaccine ( season) [facility] Start: 07-30-2024 Influenza vaccination Influenza Vaccine (#1) [facility] Start: 07-06-2024 Depression Monitoring Depression Monitoring [facility] Start: 07-06-2024 Depresssion Monitoring Depresssion Monitoring [facility] Start: 05-08-2024 End: 05-08-2025 CBC W Auto Differential panel - Blood CBC auto differential Lab Routine Essential hypertension Expected: 05/08/2024 (Approximate), Expires: 05/08/2025 [facility] Work Phone: Comment on above: Expected: 05/08/2024 (Approximate), Expi res: 05/08/2025 Start: 05-08-2024 End: 05-08-2025 Comprehensive metabolic 1998 panel - Serum or Plasma Comprehensive metabolic panel Lab Routine Essential hypertension Expected: 05/08/2024 (Approximate), Expires: 05/08/2025 [facility] Comment on above: Expected: 05/08/2024 (Approximate), Expi res: 05/08/2025 Start: 05-08-2024 End: 05-08-2025 Hemoglobin A1c measurement Hemoglobin A1c Lab Routine Type 2 diabetes mellitus without complication, without long-term current use of insulin ([facility]/HCC) (HCC) Expected: 05/08/2024 (Approximate), Expires: 05/08/2025 [facility] Comment on above: Expected: 05/08/2024 (Approximate), Expi res: 05/08/2025 Start: 05-08-2024 End: 05-08-2025 Lipid 1996 panel - Serum or Plasma Lipid panel Lab Routine Hypercholesterolemia Expected: 05/08/2024 (Approximate), Expires: 05/08/2025 [facility] Comment on above: Expected: 05/08/2024 (Approximate), Expi res: 05/08/2025 Start: 05-08-2024 End: 05-08-2024 Patient encounter procedure 05/08/2024 9:00 AM EDT Office Visit [facility] [address] [place] [address] Paulo Jimenez, [address] [place] [address] [facility] Start: 01-09-2024 Diabetic foot examination Diabetes: Foot Exam [facility] Start: 01-06-2024 End: 01-06-2025 CBC W Auto Differential panel - Blood CBC auto differential Lab Routine Essential hypertension Expected: 01/06/2024 (Approximate), Expires: 01/06/2025 [facility] Work Phone: Comment on above: Expected: 01/06/2024 (Approximate), Expi res: 01/06/2025 Start: 01-06-2024 End: 01-06-2025 Comprehensive metabolic 1998 panel - Serum or Plasma Comprehensive metabolic panel Lab Routine Essential hypertension Expected: 01/06/2024 (Approximate), Expires: 01/06/2025 [facility] Comment on above: Expected: 01/06/2024 (Approximate), Expi res: 01/06/2025 Start: 01-06-2024 End: 02-08-2025 Hemoglobin A1c measurement Hemoglobin A1c Lab Routine Type 2 diabetes mellitus without complication, without long-term current use of insulin ([facility]/HCC) (HCC) Expected: 01/06/2024 (Approximate), Expires: 01/06/2025 [facility] Comment on above: Expected: 01/06/2024 (Approximate), Expi res: 01/06/2025 Start: 01-06-2024 End: 01-06-2025 Lipid 1996 panel - Serum or Plasma Lipid panel Lab Routine Hypercholesterolemia Expected: 01/06/2024 (Approximate), Expires: 01/06/2025 [facility] Comment on above: Expected: 01/06/2024 (Approximate), Expi res: 01/06/2025 Start: 01-06-2024 End: 01-06-2025 Thyrotropin [Units/volume] in Serum or Plasma TSH Lab Routine Hypercholesterolemia Expected: 01/06/2024 (Approximate), Expires: 01/06/2025 [facility] Comment on above: Expected: 01/06/2024 (Approximate), Expi res: 01/06/2025 Start: 01-06-2024 End: 01-06-2024 Patient encounter procedure [facility] Start: 10-29-2023 Glaucoma screening Diabetes: Retinopathy Screening [facility] Start: 09-06-2023 End: 09-06-2023 Patient encounter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 TABLET BY MOUTH IN THE MORNING AND 1 TABLET IN THE EVENING. - Jardiance 25 MG; Take 1 tablet (25 mg) by mouth daily. - metFORMIN (Glucophage) 1000 MG tablet; Take 1 tablet (1,000 mg) by mouth 2 times daily (with meals). - pioglitazone (Actos) 45 MG tablet; Take 1 tablet (45 mg) by mouth daily. - CBC auto differential; Future - Comprehensive metabolic panel; Future - Hemoglobin A1c; Future - Lipid panel; Future - CBC auto differential - Comprehensive metabolic panel - Hemoglobin A1c - Lipid panel Essential hypertension Comments: stable, Continue lisinopril and Norvasc Orders: - amLODIPine (Norvasc) 5 MG tablet; Take 1 tablet (5 mg) by mouth daily. - lisinopril 20 MG tablet; Take 1 tablet (20 mg) by mouth daily for 180 doses. - ECG 12 lead; Future - ECG 12 lead Hypercholesterolemia Comments: Stable, continue Lipitor Orders: - atorvastatin (Lipitor) 40 MG tablet; Take 1 tablet (40 mg) by mouth daily for 360 doses. Anxiety and depression Comments: Stable, continue Effexor Orders: - venlafaxine XR (Effexor XR) 75 MG 24 hr capsule; Take 1 capsule (75 mg) by mouth daily. Cerebrovascular accident (CVA), unspecified mechanism (HCC) Comments: Stable, restart baby aspirin and continue Plavix Orders: - clopidogrel (Plavix) 75 MG tablet; Take 1 tablet (75 mg) by mouth daily. Type 2 diabetes mellitus with other circulatory complications (HCC) Palpitation Comments: Probably A-fib. Patient deferring Echo or Holter monitor or any discussion on anticoagulation therapy Orders: - Magnesium; Future - Magnesium Aortic heart murmur Concerned about new onset atrial fibrillation and aortic stenosis. Discussed need for echocardiogram and Holter monitor and perhaps different anticoagulant. He is not interested and defers any workup. He understands the risk of recurrent stroke and . Subjective: Patient ID: Heike Carcamo is a 79 y.o. male. HPI decently controlled type II diabetic with history of hypertension hyperlipidemia and remote stroke with right hemiaplasia presents for checkup. Not checking glucose levels at all. Denies excessive polyuria polydipsia. Denies exertional chest pain or palpitations PND orthopnea or claudication. No change in chronic right ankle edema. His feet are always cold but does not walk much and denies true claudication. No change in vision or skin. Review of Systems no recent earache sore throat or cough. No chest pain or palpitations. Denies PND or orthopnea. No heartburn or abdominal pain. Bowels are regular. No melena or blood. No dysuria. Using a cane without difficulty. His right arm and leg are stronger. He does have chronic twitching of his left side of his face for more than 20 years. No Known Allergies Current Outpatient Medications on File Prior to Visit Medication Sig Dispense Refill Cyanocobalamin (VITAMIN B 12 PO) Take by mouth. [DISCONTINUED] amLODIPine (Norvasc) 5 MG tablet Take 1 tablet (5 mg) by mouth daily. 90 tablet 1 [DISCONTINUED] atorvastatin (Lipitor) 40 MG tablet Take 1 tablet (40 mg) by mouth daily for 90 doses. 90 tablet 3 [DISCONTINUED] clopidogrel (Plavix) 75 MG tablet Take 1 tablet (75 mg) by mouth daily. 90 tablet 1 [DISCONTINUED] glimepiride (Amaryl) 4 MG tablet TAKE 1 TABLET BY MOUTH IN THE MORNING AND 1 TABLET IN THE EVENING. 180 tablet 1 [DISCONTINUED] Jardiance 25 MG Take 1 tablet (25 mg) by mouth daily. 90 tablet 1 [DISCONTINUED] lisinopril 20 MG tablet Take 1 tablet (20 mg) by mouth daily for 180 doses. 90 tablet 1 [DISCONTINUED] metFORMIN (Glucophage) 1000 MG tablet Take 1 tablet (1,000 mg) by mouth in the morning and 1 tablet (1,000 mg) in the evening. Take with meals. 180 tablet 1 [DISCONTINUED] pioglitazone (Actos) 45 MG tablet Take 1 tablet (45 mg) by mouth daily. 90 tablet 1 [DISCONTINUED] venlafaxine XR (Effexor XR) 75 MG 24 hr capsule Take 1 capsule (75 mg) by mouth daily. 90 capsule 1 aspirin 81 MG EC tablet Take 1 tablet (81 mg) by mouth daily. (Patient not taking: Reported on 01/09/2025) 30 tablet 11 [DISCONTINUED] atorvastatin (Lipitor) 20 MG tablet Take 1 tablet by mouth once daily (Patient not taking: Reported on 01/09/2025) 90 tablet 3 No current facility-administered medications on file prior to visit. Patient Active Problem List Diagnosis Type 2 diabetes mellitus with other circulatory complications ([facility]) Hypertension Noncompliance Chews tobacco Depression Bilateral carotid bruits Hypercholesterolemia Cerebrovascular accident (CVA) ([facility]) PAD (peripheral artery disease) (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) Social History Tobacco Use Smoking status: Former Current packs/day: 0.00 Types: Cigarettes Quit date: 06/12/1985 Years since quittin.6 Smokeless tobacco: Current Substance Use Topics Alcohol use: No Alcohol/week: 0.0 standard drinks of alcohol Past Surgical History: Procedure Laterality Date CATARACT EXTRACTION Right 2014 CATARACT EXTRACTION Left 2011 EYE SURGERY 2012 left eye retina ? Retinal bleed HERNIA REPAIR Left 1996 inguinal ORIF ANKLE FRACTURE Right 09/2022 Renee Colon Family History Problem Relation Name Age of Onset Heart disease Mother [place] age 67 COPD Father age 67- Smoker Heart disease Brother Antoine No Known Problems Brother Gigi Objective: BP 121/76 (BP Location: Right arm, Patient Position: Sitting, BP Cuff Size: Large adult) Pulse 86 Temp 37.1 C (98.7 F) (Temporal) Ht 5' 7 (1.702 m) Wt 228 lb (103 kg) SpO2 98% BMI 35.71 kg/m Physical Exam blood pressure stable. Heart is irregular. No JVD adenopathy. Bilateral carotid bruits are evident. Heart is irregular with a grade 3 out of 6 systolic murmur heard at the right second intercostal space. Lungs are diminished but clear. Abdomen obese nontender without pain hepatosplenomegaly or masses. No appreciable femoral bruits. Extremities are dry without obvious skin breakdowns. Pulses are diminished bilaterally. Right ankle edema due to his previous fracture repair. There is a left facial weakness. He has a twitch for the last 20 years. Upper and lower extremity strength is 4 out of 5 on the right no clonus. His gait is relatively stable with a cane. EKG irregular probable A-fib flutter, no ischemia. documented in this encounter [facility] 12-29-2024 Telephone encounter Note Rx loaded [facility] 12-29-2024 Miscellaneous Notes Rx loaded documented in this encounter [facility] 09-05-2024 History of Present illness Narrative Images from the original note were not included. [facility] - [address] [facility] [id number] Visit type: Established Patient Reason for Visit: Follow-up (Med check) and Flu Vaccine Assessment / Plan: Heike was seen today for follow-up and flu vaccine. Diagnoses and all orders for this visit: Type 2 diabetes mellitus without complication, without long-term current use of insulin (CMS/HCC) (HCC) (Primary) Comments: Stable, continue Jardiance, metformin and Actos and glimepiride Orders: - glimepiride (Amaryl) 4 MG tablet; TAKE 1 TABLET BY MOUTH IN THE MORNING AND 1 TABLET IN THE EVENING. - Jardiance 25 MG; Take 1 tablet (25 mg) by mouth daily. - metFORMIN (Glucophage) 1000 MG tablet; Take 1 tablet (1,000 mg) by mouth in the morning and 1 tablet (1,000 mg) in the evening. Take with meals. - pioglitazone (Actos) 45 MG tablet; Take 1 tablet (45 mg) by mouth daily. - CBC auto differential; Future - Comprehensive metabolic panel; Future - Hemoglobin A1c; Future - Lipid panel; Future - CBC auto differential - Comprehensive metabolic panel - Hemoglobin A1c - Lipid panel Essential hypertension Comments: stable, Continue lisinopril and Norvasc Orders: - amLODIPine (Norvasc) 5 MG tablet; Take 1 tablet (5 mg) by mouth daily. - lisinopril 20 MG tablet; Take 1 tablet (20 mg) by mouth daily for 180 doses. Hypercholesterolemia Comments: Stable, continue Lipitor Orders: - atorvastatin (Lipitor) 20 MG tablet; Take 1 tablet (20 mg) by mouth daily. Anxiety and depression Comments: Stable, continue Effexor Orders: - venlafaxine XR (Effexor XR) 75 MG 24 hr capsule; Take 1 capsule (75 mg) by mouth daily. Cerebrovascular accident (CVA), unspecified mechanism (HCC) Comments: Stable, continue Plavix and aspirin Orders: - clopidogrel (Plavix) 75 MG tablet; Take 1 tablet (75 mg) by mouth daily. Chews tobacco Comments: Chronic, did encourage cessation. Other orders - Flu vaccine (FLUAD), trivalent, adjuvanted, preservative-free (ages 65+) Subjective: Patient ID: Heike Carcamo is a 78 y.o. male. HPI well-controlled type II diabetic that does not do glucose monitoring at home presents for checkup. History of remote CVA with right hemiplegia. Overall he feels well. A1c's have been excellent. Weight is stable. Presently denies hypoglycemic episodes. No recent change in his vision history of mild retinopathy. Had carotid Dopplers which showed less than 50% stenosis and peripheral arterial disease workup of his legs was actually normal. Review of Systems denies recent earache sore throat or cough. No chest pain or palpitations. Non-smoker. No wheezing or shortness of breath or choking. No heartburn or abdominal pain. Bowels are regular. No melena or blood. No dysuria hematuria. Using a cane since the stroke and helps his balance. Does have some hip stiffness and low back pain but denies recent falls. No anxiety depression. He is Effexor has been helpful. He enjoys living with his children. No Known Allergies Current Outpatient Medications on File Prior to Visit Medication Sig Dispense Refill aspirin 81 MG EC tablet Take 1 tablet (81 mg) by mouth daily. 30 tablet 11 Cyanocobalamin (VITAMIN B 12 PO) Take by mouth. [DISCONTINUED] amLODIPine (Norvasc) 5 MG tablet Take 1 tablet (5 mg) by mouth daily. 90 tablet 1 [DISCONTINUED] atorvastatin (Lipitor) 20 MG tablet Take 1 tablet (20 mg) by mouth daily. 90 tablet 1 [DISCONTINUED] clopidogrel (Plavix) 75 MG tablet Take 1 tablet (75 mg) by mouth daily. 90 tablet 1 [DISCONTINUED] glimepiride (Amaryl) 4 MG tablet TAKE 1 TABLET BY MOUTH IN THE MORNING AND 1 TABLET IN THE EVENING. 180 tablet 1 [DISCONTINUED] Jardiance 25 MG Take 1 tablet (25 mg) by mouth daily. 90 tablet 1 [DISCONTINUED] lisinopril 20 MG tablet Take 1 tablet (20 mg) by mouth daily for 180 doses. 90 tablet 1 [DISCONTINUED] metFORMIN (Glucophage) 1000 MG tablet Take 1 tablet (1,000 mg) by mouth in the morning and 1 tablet (1,000 mg) in the evening. Take with meals. 180 tablet 1 [DISCONTINUED] pioglitazone (Actos) 45 MG tablet Take 1 tablet (45 mg) by mouth daily. 90 tablet 1 [DISCONTINUED] venlafaxine XR (Effexor XR) 75 MG 24 hr capsule Take 1 capsule (75 mg) by mouth daily. 90 capsule 1 No current facility-administered medications on file prior to visit. Patient Active Problem List Diagnosis Type 2 diabetes mellitus without complication, without long-term current use of insulin (CMS/HCC) (HCC) Essential hypertension Noncompliance Chews tobacco Anxiety and depression Bilateral carotid bruits Hypercholesterolemia Cerebrovascular accident (CVA) (HCC) PAD (peripheral artery disease) ([facility]) Social History Tobacco Use Smoking status: Former Current packs/day: 0.00 Types: Cigarettes Quit date: 06/12/1985 Years since quittin.2 Smokeless tobacco: Current Substance Use Topics Alcohol use: No Alcohol/week: 0.0 standard drinks of alcohol Past Surgical History: Procedure Laterality Date CATARACT EXTRACTION Right 2014 CATARACT EXTRACTION Left 2011 EYE SURGERY 2012 left eye retina ? Retinal bleed HERNIA REPAIR Left 1996 inguinal ORIF ANKLE FRACTURE Right 09/2022 Renee Colon Family History Problem Relation Name Age of Onset Heart disease Mother [place] age 67 COPD Father age 67- Smoker Heart disease Brother Antoine No Known Problems Brother Gigi Objective: BP 117/75 (BP Location: Right arm, Patient Position: Sitting, BP Cuff Size: Large adult) Pulse 65 Temp 36.2 C (97.2 F) (Temporal) Ht 5' 7 (1.702 m) Wt 227 lb (103 kg) SpO2 97% BMI 35.55 kg/m Physical Exam pleasant and engaging. No oropharyngeal masses. Poor oral hygiene with a few teeth. No thyroid or neck masses. Bilateral carotid bruits are evident. No JVD or adenopathy. Heart is regular without ectopy but has mild aortic stenotic murmur. Lungs are clear. Abdomen obese nontender without pain hepatosplenomegaly masses or bruits. Femoral pulses are good. Extremities have trace pedal edema which appears to be chronic. Pulses are diminished and his feet are cool to recent ABIs were okay. There is no motor loss of the lower extremities. Toes downgoing and no clonus. He has moderate bilateral finger weakness. His gait is tenuous using a cane. Left hip range of motion diminished otherwise right hip and both knee range of motion is adequate. documented in this encounter [facility] 08-28-2024 Telephone encounter Note Rx loaded [facility] 08-28-2024 Miscellaneous Notes Rx loaded Medication name: lisinopril 20 MG tablet Patient only has 1 left Medication dosage: 20 mg (Miligrams Monthly quantity needed: 30 How many day supply requestin days Medication route: oral (PO) Medication administration time(s): daily If taking medication PRN, reason for taking medication: N/A If this is a controlled substance do you receive this or any other controlled medication from any other doctor or facility: No Ordering provider: Dr. Jimenez Date of last office visit: 05.08.2024 Date of next office visit: 09.05.2024 Date of last refill: (see medication tab): 05.08.2024 Updated/Validated preferred pharmacy: Yes Patient instructed to contact the pharmacy prior to picking up the medication: Yes documented in this encounter [facility] 08-28-2024 Telephone encounter Note Medication name: lisinopril 20 MG tablet Patient only has 1 left Medication dosage: 20 mg (Miligrams Monthly quantity needed: 30 How many day supply requestin days Medication route: oral (PO) Medication administration time(s): daily If taking medication PRN, reason for taking medication: N/A If this is a controlled substance do you receive this or any other controlled medication from any other doctor or facility: No Ordering provider: Dr. Jimenez Date of last office visit: 05.08.2024 Date of next office visit: 09.05.2024 Date of last refill: (see medication tab): 05.08.2024 Updated/Validated preferred pharmacy: Yes Patient instructed to contact the pharmacy prior to picking up the medication: Yes [facility] 08-08-2024 Telephone encounter Note Name of caller: Lisa Contact phone number: [phone] Relationship to Patient: daughter Provider: Dr Jimenez [facility] Chief Complaint/Reason for Call: Lisa called to let dr jimenez know that patient has scheduled the carotid appt's he had orders for. Please advise. Best time of day caller can be reached: any Patient advised that office/PCP has 24-48 business hours to return their call: Yes [facility] 08-08-2024 Miscellaneous Notes Name of caller: Lisa Contact phone number: [phone] Relationship to Patient: daughter Provider: Dr Jimenez Practice: [facility] Chief Complaint/Reason for Call: Lisa called to let dr jimenez know that patient has scheduled the carotid appt's he had orders for. Please advise. Best time of day caller can be reached: any Patient advised that office/PCP has 24-48 business hours to return their call: Yes documented in this encounter [facility] 08-03-2024 Telephone encounter Note noted [facility] 08-03-2024 Miscellaneous Notes noted Spoke with patient and he consents to getting the carotid doppler done and asked if I would reach out to his daughter Lisa Velez and reached out to daughter and daughter was given central scheduling number to call and schedule patient. We have been unable to reach your patient to schedule their testing. Test Name: Taj and Carotid duplex 1st Attempt: [facility] 07/24/2024 2nd Attempt: [facility] 07/28/2024 documented in this encounter [facility] 08-01-2024 Telephone encounter Note Spoke with patient and he consents to getting the carotid doppler done and asked if I would reach out to his daughter Lisa Velez and reached out to daughter and daughter was given central scheduling number to call and schedule patient. [facility] 08-01-2024 Miscellaneous Notes Spoke with patient and he consents to getting the carotid doppler done and asked if I would reach out to his daughter Lisa Velez and reached out to daughter and daughter was given central scheduling number to call and schedule patient. We have been unable to reach your patient to schedule their testing. Test Name: Taj and Carotid duplex 1st Attempt: [facility] 07/24/2024 2nd Attempt: [facility] 07/28/2024 documented in this encounter [facility] 07-28-2024 Telephone encounter Note We have been unable to reach your patient to schedule their testing. Test Name: Taj and Carotid duplex 1st Attempt: [facility] 07/24/2024 2nd Attempt: [facility] 07/28/2024 [facility] 07-26-2024 History of Present illness Narrative The patient, Heike Carcamo, identity was verified by name and . Supervising provider for clinic visit: Dr. Jimenez Chief Complaint Patient presents with Blood Pressure Check Reason for visit: Elevated BP reading at last visit Heike Carcamo is taking medications reviewed with patient for HTN Patient states compliant with medications as written: Yes BP medication taken prior to this visit? Yes - 7am this morning Are you having any symptoms? No Current Blood Pressure: 151/80 Current Heart Rate: 76 Did Blood Pressure need rechecked: yes Second Blood Pressure Readin/68 Second Heart Rate: 80 Assessment/Plan: There are no diagnoses linked to this encounter. elevated Future Appointments Date Time Provider Department Center 07/26/2024 9:40 AM SCHEDULE, [facility] 09/05/2024 9:30 AM Paulo Jimenez, DO [facility] Cc[facility] provider blood pressure readings? Yes Presently blood pressure reading satisfactory on second reading. Will discuss meds in August Placed call to patient. Unable to reach them by phone to discuss BP reading results. Left detailed message to return call to discuss results. documented in this encounter [facility] 07-26-2024 History of Present illness Narrative The patient, Heike Carcamo, identity was verified by name and . Supervising provider for clinic visit: Dr. Jimenez Chief Complaint Patient presents with Blood Pressure Check Reason for visit: Elevated BP reading at last visit Heike Carcamo is taking medications reviewed with patient for HTN Patient states compliant with medications as written: Yes BP medication taken prior to this visit? Yes - 7am this morning Are you having any symptoms? No Current Blood Pressure: 151/80 Current Heart Rate: 76 Did Blood Pressure need rechecked: yes Second Blood Pressure Readin/68 Second Heart Rate: 80 Assessment/Plan: There are no diagnoses linked to this encounter. elevated Future Appointments Date Time Provider Department Center 07/26/2024 9:40 AM SCHEDULE, [facility] 09/05/2024 9:30 AM Paulo Jimenez, [facility] Cc[facility] provider blood pressure readings? Yes Presently blood pressure reading satisfactory on second reading. Will discuss meds in August Placed call to patient. Unable to reach them by phone to discuss BP reading results. Left detailed message to return call to discuss results. Placed call to patient. Two patient identifers confirmed. Was able to speak to patient. All concerns in message have been addressed. No questions at this time. Call ended documented in this encounter [facility] 05-08-2024 Telephone encounter Note Referral pended for dx and doctor's signature [facility] 05-08-2024 Miscellaneous Notes Referral pended for dx and doctor's signature documented in this encounter [facility] 05-08-2024 History of Present illness Narrative Images from the original note were not included. [facility] [address] [place] [address] [address] [facility] [id number] Visit type: Established Patient Reason for Visit: Follow-up (Med check) Assessment / Plan: Heike was seen today for follow-up. Diagnoses and all orders for this visit: Type 2 diabetes mellitus without complication, without long-term current use of insulin ([facility]) ([facility]) (Primary) Comments: Stable, continue Jardiance, metformin and Actos and glimepiride Orders: - glimepiride (Amaryl) 4 MG tablet; TAKE 1 TABLET BY MOUTH IN THE MORNING AND 1 TABLET IN THE EVENING. - Jardiance 25 MG; Take 1 tablet (25 mg) by mouth daily. - metFORMIN (Glucophage) 1000 MG tablet; Take 1 tablet (1,000 mg) by mouth in the morning and 1 tablet (1,000 mg) in the evening. Take with meals. - pioglitazone (Actos) 45 MG tablet; Take 1 tablet (45 mg) by mouth daily. - Hemoglobin A1c; Future - Hemoglobin A1c Essential hypertension Comments: Uncontrolled, increase lisinopril 20 mg daily. BP check 4 weeks Orders: - amLODIPine (Norvasc) 5 MG tablet; Take 1 tablet (5 mg) by mouth daily. - lisinopril 20 MG tablet; Take 1 tablet (20 mg) by mouth daily for 90 doses. - CBC auto differential; Future - Comprehensive metabolic panel; Future - CBC auto differential - Comprehensive metabolic panel Hypercholesterolemia Comments: Stable, continue Lipitor Orders: - atorvastatin (Lipitor) 20 MG tablet; Take 1 tablet (20 mg) by mouth daily. - Lipid panel; Future - Lipid panel Anxiety and depression Comments: Stable, continue Effexor Orders: - venlafaxine XR (Effexor XR) 75 MG 24 hr capsule; Take 1 capsule (75 mg) by mouth daily. Cerebrovascular accident (CVA), unspecified mechanism (HCC) Comments: Stable, continue Plavix Orders: - clopidogrel (Plavix) 75 MG tablet; Take 1 tablet (75 mg) by mouth daily. PAD (peripheral artery disease) (HCC) Comments: Stable but check Dopplers. Add aspirin 81 mg daily Chews tobacco Comments: Urged cessation Bilateral carotid bruits Comments: History of CVA, check Dopplers Other orders - Diabetes Foot Exam Subjective: Patient ID: Heike Carcamo is a 78 y.o. male. HPI type II diabetic with history of remote CVA, hyperlipidemia hypercholesterolemia and tobacco chewing presents for checkup. Glucose levels a few times a week are excellent. A1c is within goal. Weight is stable. No hypoglycemic episodes. No change in vision or skin. Review of Systems history of remote left CVA with right hemiaplegia. Has gotten all the strength back on the right arm and leg. Using a cane because of right knee pain. Still chewing tobacco. No oral complaints. Denies exertional chest pain palpitations dyspnea cough phlegm or wheezing. No heartburn or abdominal pain. Bowels are regular. No melena or blood. No dysuria or hematuria. Effexor is been helpful for his mood. He presents with his daughter. Of note his 7 years ago No Known Allergies Current Outpatient Medications on File Prior to Visit Medication Sig Dispense Refill Cyanocobalamin (VITAMIN B 12 PO) Take by mouth. [DISCONTINUED] amLODIPine (Norvasc) 5 MG tablet Take 1 tablet (5 mg) by mouth daily. 90 tablet 1 [DISCONTINUED] atorvastatin (Lipitor) 20 MG tablet Take 1 tablet (20 mg) by mouth daily. 90 tablet 1 [DISCONTINUED] clopidogrel (Plavix) 75 MG tablet Take 1 tablet (75 mg) by mouth daily. 90 tablet 1 [DISCONTINUED] glimepiride (Amaryl) 4 MG tablet TAKE 1 TABLET BY MOUTH IN THE MORNING AND 1 TABLET IN THE EVENING. 180 tablet 1 [DISCONTINUED] Jardiance 25 MG Take 1 tablet (25 mg) by mouth daily. 90 tablet 1 [DISCONTINUED] lisinopril 10 MG tablet Take 1 tablet (10 mg) by mouth daily. 90 tablet 1 [DISCONTINUED] metFORMIN (Glucophage) 1000 MG tablet Take 1 tablet (1,000 mg) by mouth in the morning and 1 tablet (1,000 mg) in the evening. Take with meals. 180 tablet 1 [DISCONTINUED] pioglitazone (Actos) 45 MG tablet Take 1 tablet (45 mg) by mouth daily. 90 tablet 1 [DISCONTINUED] venlafaxine XR (Effexor XR) 75 MG 24 hr capsule Take 1 capsule (75 mg) by mouth daily. 90 capsule 1 No current facility-administered medications on file prior to visit. Patient Active Problem List Diagnosis Type 2 diabetes mellitus without complication, without long-term current use of insulin ([facility]) ([facility]) Essential hypertension Noncompliance Chews tobacco Anxiety and depression Bilateral carotid bruits Hypercholesterolemia Cerebrovascular accident (CVA) ([facility]) PAD (peripheral artery disease) ([facility]) Social History Tobacco Use Smoking status: Former Packs/day: 1 Types: Cigarettes Quit date: 06/12/1985 Years since quittin.9 Smokeless tobacco: Current Substance Use Topics Alcohol use: No Alcohol/week: 0.0 standard drinks of alcohol Past Surgical History: Procedure Laterality Date CATARACT EXTRACTION Right 2014 CATARACT EXTRACTION Left 2011 EYE SURGERY 2011 left eye retina ? Retinal bleed HERNIA REPAIR Left 1996 inguinal ORIF ANKLE FRACTURE Right 09/2022 Dr. Renee Evans Family History Problem Relation Name Age of Onset Heart disease Mother IA age 67 COPD Father age 67- Smoker Heart disease Brother Antoine No Known Problems Brother Gigi Objective: BP (!) 160/62 (BP Location: Left arm, Patient Position: Sitting, BP Cuff Size: Large adult) Pulse 86 Temp 36.4 C (97.5 F) (Temporal) Ht 5' 7 (1.702 m) Wt 227 lb (103 kg) SpO2 99% BMI 35.55 kg/m Physical Exam no ENT findings. Clear oropharynx. Poor dental hygiene but no oral lesions. Bilateral faint carotid bruits. No other neck masses or thyroid lesions. No adenopathy. Heart is regular without gallops murmurs or ectopy. Lungs are clear. Abdomen obese nontender without pain hepatosplenomegaly masses or bruits. Femoral pulses are fair. Colder feet worse on the right side pulses diminished. No skin breakdowns. Motor and sensory exam normal. documented in this encounter [facility] MD 04-20-2024 Telephone encounter Note Orders cancelled [facility] 04-20-2024 Note Addended by: NEELIMA POWERS on: 04/20/2024 07:09 AM Modules accepted: Orders [facility] 04-20-2024 Miscellaneous Notes Addended by: NEELIMA POWERS on: 04/20/2024 07:09 AM Modules accepted: Orders Orders pended for doctor's signature documented in this encounter [facility] 04-20-2024 Miscellaneous Notes Orders cancelled We have been unable to reach your patient to schedule their testing. Test Name: Vascular US carotid artery duplex bilateral 1st Attempt: LVM 04/18/24 2nd Attempt: LVM 04/19/24 documented in this encounter [facility] 04-19-2024 Telephone encounter Note We have been unable to reach your patient to schedule their testing. Test Name: Vascular US carotid artery duplex bilateral 1st Attempt: LVM 04/18/24 2nd Attempt: LVM 04/19/24 [facility] 04-19-2024 Miscellaneous Notes We have been unable to reach your patient to schedule their testing. Test Name: Vascular US carotid artery duplex bilateral 1st Attempt: LVM 04/18/24 2nd Attempt: LVM 04/19/24 documented in this encounter [facility] 01-06-2024 Telephone encounter Note Orders pended for doctor's signature [facility] 01-06-2024 Miscellaneous Notes Orders pended for doctor's signature documented in this encounter [facility] 01-06-2024 History of Present illness Narrative Images from the original note were not included. [facility] [address] [place] [address] [address] [facility] [address] Dept: [phone] Dept Chief Complaint: Heike Carcamo is an 78 y.o. male here for an annual wellness visit. Assessment/Plan : Problem List Items Addressed This Visit Nervous Cerebrovascular accident (CVA) (HCC) Relevant Medications clopidogrel (Plavix) 75 MG tablet Circulatory Essential hypertension Relevant Medications amLODIPine (Norvasc) 5 MG tablet lisinopril 10 MG tablet Other Relevant Orders CBC auto differential Comprehensive metabolic panel Bilateral carotid bruits Endocrine/Metabolic Type 2 diabetes mellitus without complication, without long-term current use of insulin (CMS/HCC) (HCC) Relevant Medications glimepiride (Amaryl) 4 MG tablet Jardiance 25 MG metFORMIN (Glucophage) 1000 MG tablet pioglitazone (Actos) 45 MG tablet Other Relevant Orders Hemoglobin A1c Other Chews tobacco Anxiety and depression Relevant Medications venlafaxine XR (Effexor XR) 75 MG 24 hr capsule Hypercholesterolemia Relevant Medications atorvastatin (Lipitor) 20 MG tablet Other Relevant Orders Lipid panel TSH Other Visit Diagnoses Encounter for subsequent annual wellness visit (AWV) in Medicare patient - Primary I have reviewed and reconciled the medication list with the patient today. Current Outpatient Medications Medication Sig Dispense Refill Cyanocobalamin (VITAMIN B 12 PO) Take by mouth. amLODIPine (Norvasc) 5 MG tablet Take 1 tablet (5 mg) by mouth daily. 90 tablet 1 atorvastatin (Lipitor) 20 MG tablet Take 1 tablet (20 mg) by mouth daily. 90 tablet 1 clopidogrel (Plavix) 75 MG tablet Take 1 tablet (75 mg) by mouth daily. 90 tablet 1 glimepiride (Amaryl) 4 MG tablet TAKE 1 TABLET BY MOUTH IN THE MORNING AND 1 TABLET IN THE EVENING. 180 tablet 1 Jardiance 25 MG Take 1 tablet (25 mg) by mouth daily. 90 tablet 1 lisinopril 10 MG tablet Take 1 tablet (10 mg) by mouth daily. 90 tablet 1 metFORMIN (Glucophage) 1000 MG tablet Take 1 tablet (1,000 mg) by mouth in the morning and 1 tablet (1,000 mg) in the evening. Take with meals. 180 tablet 1 pioglitazone (Actos) 45 MG tablet Take 1 tablet (45 mg) by mouth daily. 90 tablet 1 venlafaxine XR (Effexor XR) 75 MG 24 hr capsule Take 1 capsule (75 mg) by mouth daily. 90 capsule 1 No current facility-administered medications for this visit. Also reviewed during this visit: Med Hx Surg Hx Fam Hx The following health maintenance schedule was reviewed with the patient and provided in printed form in the after visit summary: Health Maintenance Topic Date Due Medicare Advantage Annual Wellness Visit (AWV) Never done COVID-19 Vaccine (1) Never done Hepatitis C Screening Never done DTaP/Tdap/Td Vaccines (1 - Tdap) Never done Zoster Vaccines (1 of 2) Never done RSV Immunization aged 60 or older (1 - 1-dose 60+ series) Never done Depresssion Monitoring 07/06/2024 Influenza Vaccine Completed Pneumococcal Vaccine: 65+ Years Completed RSV Immunization under 20 Months Aged Out HIB Vaccines Aged Out Hepatitis B Vaccines Aged Out IPV Vaccines Aged Out Hepatitis A Vaccines Aged Out Meningococcal Vaccine Aged Out Rotavirus Vaccines Aged Out HPV Vaccines Aged Out List of current healthcare providers: Patient Care Team: Paulo Jimenez DO as PCP - General (Family Medicine) Orders Placed This Encounter Procedures CBC auto differential Standing Status: Future Number of Occurrences: 1 Standing Expiration Date: 01/06/2025 Comprehensive metabolic panel Standing Status: Future Number of Occurrences: 1 Standing Expiration Date: 01/06/2025 Lipid panel Standing Status: Future Number of Occurrences: 1 Standing Expiration Date: 01/06/2025 Hemoglobin A1c Standing Status: Future Number of Occurrences: 1 Standing Expiration Date: 01/06/2025 TSH Standing Status: Future Number of Occurrences: 1 Standing Expiration Date: 01/06/2025 Subjective : Annual wellness exam for patient with hypertension, diabetes and 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 Apparently has been for about 5 years. Living with his daughter. Does not get around well due to his ankle pain. Glucose levels have been well however. A1c acceptable. Has been on Plavix for about 30 years. Past medical, past surgical, family social history reviewed and chart updated. Review of Systems weight is up. No change in vision. Routine ophthalmologic exams are there. Does not get dental or hearing checkups. Denies exertional chest pain jaw pain or arm pain. No cough or wheezing. Chews tobacco. No oral lesions. No heartburn or dysphagia. Takes Advil for his body aches. No melena or blood. Bowels are regular. No dysuria. No hematuria. No recent falls or injury. Uses a cane due to his stiff right knee and right ankle. Had a ORIF of the right ankle in fall 2021. Physical Exam pleasant cooperative. Poor dental hygiene. No oral masses. Bilateral carotid bruits. No JVD adenopathy or thyroid lesions. Heart is regular without ectopy or new murmurs. Lungs are clear. Abdomen soft obese without pain hepatosplenomegaly masses or bruits. No ascites. Right facial weakness noted. Right upper extremity strength 3 out of 5. Right lower extremity strength 4 out of 5. Diminished range of motion with right ankle and foot dorsiflexion and eversion. Both feet are cold. Diminished pulses bilaterally. No skin breakdowns. He is gait is painful due to his knee and ankle. 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 Lives with his daughter Health Habits/Nutrition: Health Habits / Nutrition On average, how many days per week do you engage in moderate to strenous exercise (like a brisk walk)?: (!) 0 days On average, how man minutes do you engage in exercise at this level?: (!) 0 min Have you lost any weight without trying in the past 3 months? : No Have you seen the dentist within the past year?: (!) No Interventions: Encourage dental eval Hearing/ Vision: Hearing / Vision Do you or your family notice any trouble with your hearing that hasn't been managed with hearing aids?: No Do you have difficulty driving, watching TV, or doing any of your daily activities because of your eyesight?: No Have you had an eye exam within the past year?: Yes No results found. Safety: Safety Do you have a working smoke detector?: (!) No Do you have any tripping hazards - loose or unsecured carpets or rugs?: No Do you have any tripping hazards - clutter in doorways, halls, or stairs?: No Do you have either shower bars, grab bars, non-slip mats or non-slip surfaces in your shower or bathtub? : Yes Do all your stairways have a railing or banister? : Yes Do you fasten your seatbelt when you are in a car?: Yes Interventions: Patient declines any further evaluation / treatment for this issue ADL: ADL In the past 7 days, did you need help from others to perform any of the following everyday activities: Eating, dressing, grooming,bathing, toileting, or walking / balance? : No In the past 7 days, did you need help from others to take care of any of the following: laundry, housekeeping, banking / finances,shopping, telephone use, food preparation, transportation, or taking medications? : No Living Will: Living Will Do you have a living will?: Yes Cognitive: Cognitive Screening: Mini-Cog Clock Drawing Test (CDT): 2 Words Recalled: 3 (used words apple table miguel a) Total Score: 5 Total Score Interpretation: Normal Mini-Cog Fall Risk: Fall Risk One or more falls in the last year:: Yes (fell about a week ago at home) Advised to use a cane or walker to get around safely:: Yes (uses cane to walk sometimes) Feels unsteady when walking:: Yes Steadies self on furniture while walking at home:: Yes Worried about falling:: Yes Interventions: Patient declines any further evaluation / treatment for this issue Depression Screening: Over the past 2 weeks, how often have you been bothered by any of the following problems? Little interest or pleasure in doing things: Not at all Feeling down, depressed, or hopeless: Not at all Patient Health Questionnaire-2 Score: 0 Interventions: Patient declines any further evaluation / treatment for this issue Tobacco Use: Social History Tobacco Use Smoking Status Former Packs/day: 1 Types: Cigarettes Quit date: 06/12/1985 Years since quittin.5 Smokeless Tobacco Current Alcohol Use: Objective : BP 118/60 Pulse 85 Temp 36.3 C (97.3 F) (Temporal) Wt 225 lb (102 kg) SpO2 98% BMI 35.24 kg/m No results found. 1. Essential hypertension Stable, continue amlodipine and lisinopril. - amLODIPine (Norvasc) 5 MG tablet; Take 1 tablet (5 mg) by mouth daily. Dispense: 90 tablet; Refill: 1 - lisinopril 10 MG tablet; Take 1 tablet (10 mg) by mouth daily. Dispense: 90 tablet; Refill: 1 - CBC auto differential; Future - Comprehensive metabolic panel; Future - CBC auto differential - Comprehensive metabolic panel 2. Hypercholesterolemia Stable, continue low-fat meals and Lipitor - atorvastatin (Lipitor) 20 MG tablet; Take 1 tablet (20 mg) by mouth daily. Dispense: 90 tablet; Refill: 1 - Lipid panel; Future - TSH; Future - Lipid panel - TSH 3. Cerebrovascular accident (CVA), unspecified mechanism (HCC) Stable, continue Plavix check carotid Dopplers - clopidogrel (Plavix) 75 MG tablet; Take 1 tablet (75 mg) by mouth daily. Dispense: 90 tablet; Refill: 1 4. Type 2 diabetes mellitus without complication, without long-term current use of insulin (CMS/HCC) (HCC) Stable, encouraged some weight loss and walking continue present meds - glimepiride (Amaryl) 4 MG tablet; TAKE 1 TABLET BY MOUTH IN THE MORNING AND 1 TABLET IN THE EVENING. Dispense: 180 tablet; Refill: 1 - Jardiance 25 MG; Take 1 tablet (25 mg) by mouth daily. Dispense: 90 tablet; Refill: 1 - metFORMIN (Glucophage) 1000 MG tablet; Take 1 tablet (1,000 mg) by mouth in the morning and 1 tablet (1,000 mg) in the evening. Take with meals. Dispense: 180 tablet; Refill: 1 - pioglitazone (Actos) 45 MG tablet; Take 1 tablet (45 mg) by mouth daily. Dispense: 90 tablet; Refill: 1 - Hemoglobin A1c; Future - Hemoglobin A1c 5. Anxiety and depression Stable, continue Effexor - venlafaxine XR (Effexor XR) 75 MG 24 hr capsule; Take 1 capsule (75 mg) by mouth daily. Dispense: 90 capsule; Refill: 1 6. Encounter for subsequent annual wellness visit (AWV) in Medicare patient Stable, vitamin D and calcium questionable aspirin use 7. Bilateral carotid bruits Check Doppler 8. Chews tobacco Encouraged cessation documented in this encounter [facility] MD 01-06-2024 Instructions Paulo Jimenez DO - 01/06/2024 9:00 AM EST Personalized Preventative Plan for Heike Carcamo - 01/06/2024 Medicare offers a range of preventative health benefits. Some of the tests and screenings are paid in full while others may be subject to a deductible, co-insurance, and / or copay. Some of these benefits include a comprehensive review of your medical history including lifestyle, illnesses that may run in your family, and various assessments and screenings as appropriate. After reviewing your medical record and screening and assessments performed today, your provider may have ordered immunizations, labs, imaging, and / or referrals for you. A list of these orders (if applicable) as well as your Preventative Care list are included within your After Visit Summary for your review. Other Preventative Recommendations: A preventive eye exam by an fiscal specialist is recommended every 1-2 years to screen for glaucoma, cataracts, macular degeneration, and other eye disorders. A preventive dental visit is recommended every 6 months. Try to get at least 150 minutes of exercise per week or 10,000 steps per day on a pedometer. You need 1200-1500mg of calcium and 6019-4269 international units of vitamin D per day. It is possible to meet your calcium requirement with diet alone, but a vitamin D supplement is usually necessary to meet this goal. When exposed to the sun, use a sunscreen that protects against both UVA and UVB radiation with an SPF of 30 or greater. Reapply every 2-3 hours or after sweating, drying off with a towel, or swimming. Always wear a seat belt when traveling in a car. Always wear a helmet when riding a bicycle or a motorcycle documented in this encounter [facility] 09-06-2023 Evaluation + Plan note Associated Problem(s): Cerebrovascular accident (CVA) (HCC) - Remote chronic history of the same continue on his Plavix. [facility] 09-06-2023 Evaluation + Plan note Associated Problem(s): Anxiety and depression - Chronic and stable we will continue on Effexor 75 mg daily. [facility] 09-06-2023 Miscellaneous Notes Associated Problem(s): Cerebrovascular accident (CVA) (HCC) - Remote chronic history of the same continue on his Plavix. Associated Problem(s): Anxiety and depression - Chronic and stable we will continue on Effexor 75 mg daily. Associated Problem(s): Type 2 diabetes mellitus without complication, without long-term current use of insulin ([facility]) ([facility]) - Chronic and stable hemoglobin A1c is 6.9 at [id number] today. Continue on his current medications Amaryl 4 mg twice daily, Jardiance 25 mg daily metformin 1000 mg twice daily and Actos 45 mg daily. Associated Problem(s): Essential hypertension - Chronic and stable we will continue on Norvasc 5 mg daily, lisinopril 10 mg daily documented in this encounter [facility] 09-06-2023 Evaluation + Plan note Associated Problem(s): Type 2 diabetes mellitus without complication, without long-term current use of insulin ([facility]) ([facility]) - Chronic and stable hemoglobin A1c is 6.9 at [id number] today. Continue on his current medications Amaryl 4 mg twice daily, Jardiance 25 mg daily metformin 1000 mg twice daily and Actos 45 mg daily. [facility] 09-06-2023 Evaluation + Plan note Associated Problem(s): Essential hypertension - Chronic and stable we will continue on Norvasc 5 mg daily, lisinopril 10 mg daily [facility] 09-06-2023 History of Present illness Narrative Images from the original note were not included. [facility] [address] [facility] [address] Dept: [phone] Dept Loc: [phone] Visit type: Established Patient Reason for Visit: Follow-up (4 month) Assessment and Plan 1. Flu vaccine need - Flu vaccine quadrivalent, for patients ages 65+, (Fluad) preservative free 2. Essential hypertension Assessment & Plan: - Chronic and stable we will continue on Norvasc 5 mg daily, lisinopril 10 mg daily Orders: - amLODIPine (Norvasc) 5 MG tablet; Take 1 tablet (5 mg) by mouth daily., Starting 09/06/2023, Until 03/04/2024, Normal - lisinopril 10 MG tablet; Take 1 tablet (10 mg) by mouth daily., Starting Wed09/06/2023, Normal 3. Hypercholesterolemia - atorvastatin (Lipitor) 20 MG tablet; Take 1 tablet (20 mg) by mouth daily., Starting 09/06/2023, Normal 4. Cerebrovascular accident (CVA), unspecified mechanism ([facility]) Assessment & Plan: - Remote chronic history of the same continue on his Plavix. Orders: - clopidogrel (Plavix) 75 MG tablet; Take 1 tablet (75 mg) by mouth daily., Starting Wed09/06/2023, Normal 5. Type 2 diabetes mellitus without complication, without long-term current use of insulin ([facility]) (HCC) Assessment & Plan: - Chronic and stable hemoglobin A1c is 6.9 at [id number] today. Continue on his current medications Amaryl 4 mg twice daily, Jardiance 25 mg daily metformin 1000 mg twice daily and Actos 45 mg daily. Orders: - glimepiride (Amaryl) 4 MG tablet; TAKE 1 TABLET BY MOUTH IN THE MORNING AND 1 TABLET IN THE EVENING., Normal - Jardiance 25 MG; Take 1 tablet (25 mg) by mouth daily., Starting Wed09/06/2023, Normal - metFORMIN (Glucophage) 1000 MG tablet; Take 1 tablet (1,000 mg) by mouth in the morning and 1 tablet (1,000 mg) in the evening. Take with meals., Starting Wed09/06/2023, Normal - pioglitazone (Actos) 45 MG tablet; Take 1 tablet (45 mg) by mouth daily., Starting Wed09/06/2023, Normal - AMB POC HEMOGLOBIN A1C - HP Diabetic Foot Exam 6. Anxiety and depression Assessment & Plan: - Chronic and stable we will continue on Effexor 75 mg daily. Orders: - venlafaxine XR (Effexor XR) 75 MG 24 hr capsule; Take 1 capsule (75 mg) by mouth daily., Starting Wed09/06/2023, Normal Patient otherwise states he is doing remarkably well has no acute concerns. He did request his flu vaccination today. He denies any other vaccinations at this point time. Says his sugars are well controlled with [id number] A1c today 6.9. Lives at home with his daughter and his 2 grandkids they help take care of him. They drive him around he still walks with the assistance of a walking cane. He states he did have a fall couple months ago where he stubbed this toe since then he been doing okay has had no further issues. Denies any acute concerns. Follow up in about 4 months (around 01/07/2024) for DM f/u. Subjective HPI 77-year-old male with a history of hypertension, hypercholesterolemia and diabetes, remote CVA in 1994 with minimal deficit, mild right foot drop and left side facial and eye twitches. Patient was subsequently seen in April for 4-month checkup and evaluation. Blood pressure was persistently elevated 2 weeks later and because of this he was started on Norvasc 5 mg daily. He returns back to the office now for further checkup. \Comes in today more for medication refill and request a flu vaccination. Sugars been controlled he states he is getting an the low 100s he denies any shortness of breath chest pain palpitations fever chills rigors. He does state he has a chronic tic/twitch of left eye which she states happens more when he gets nervous. He denies any fever chills rigors his appetites been good he does state he urinates a significant mount throughout the day and is up 3-4 times at night. I do not see any signs of a previous PSA but at this point time no further recommendations for PSA levels. We did discuss this briefly. He denies any abdominal pain no problems with his bowels or bladder otherwise. Review of Systems Constitutional: Negative for chills and fever. HENT: Negative for congestion and sore throat. Respiratory: Negative for cough and shortness of breath. Cardiovascular: Negative for chest pain, palpitations and leg swelling. Gastrointestinal: Negative for abdominal pain, diarrhea, nausea and vomiting. Genitourinary: Positive for frequency. Negative for difficulty urinating, dysuria, penile pain and penile swelling. Musculoskeletal: Negative for back pain and neck pain. Neurological: Positive for light-headedness (From time to time nothing chronic). Negative for dizziness. All other systems reviewed and are negative. No Known Allergies Outpatient Medications Prior to Visit Medication Sig Dispense Refill Cyanocobalamin (VITAMIN B 12 PO) Take by mouth. amLODIPine (Norvasc) 5 MG tablet Take 1 tablet (5 mg) by mouth daily. 30 tablet 5 atorvastatin (Lipitor) 20 MG tablet Take 1 tablet (20 mg) by mouth daily. 30 tablet 5 clopidogrel (Plavix) 75 MG tablet Take 1 tablet (75 mg) by mouth daily. 30 tablet 5 glimepiride (Amaryl) 4 MG tablet TAKE 1 TABLET BY MOUTH IN THE MORNING AND 1 TABLET IN THE EVENING. 60 tablet 5 Jardiance 25 MG Take 1 tablet (25 mg) by mouth daily. 30 tablet 5 lisinopril 10 MG tablet Take 1 tablet (10 mg) by mouth daily. 30 tablet 5 metFORMIN (Glucophage) 1000 MG tablet Take 1 tablet (1,000 mg) by mouth in the morning and 1 tablet (1,000 mg) in the evening. Take with meals. 60 tablet 5 pioglitazone (Actos) 45 MG tablet Take 1 tablet (45 mg) by mouth daily. 30 tablet 5 venlafaxine XR (Effexor XR) 75 MG 24 hr capsule Take 1 capsule (75 mg) by mouth daily. 30 capsule 5 triamcinolone (Kenalog) 0.1 % cream Apply to affected area 1-2 times daily as needed. Avoid face and groin. (Patient not taking: Reported on 09/06/2023) 30 g 0 No facility-administered medications prior to visit. Past Medical History: Diagnosis Date CVA (cerebral vascular accident) (HCC) 04/20/1995 right hemiperesis Depression Eye exam, routine 08/08/2019 no retinopathy Eye exam, routine 10/28/2021 Mild diabetic retinopathy Eye exam, routine 10/29/2022 no retinopathy Hypercholesterolemia Hypertension Left carotid bruit Morbid (severe) obesity due to excess calories ([facility]) 05/05/2023 Type II or unspecified type diabetes mellitus without mention of complication, not stated as uncontrolled ([facility]) 1995 Social History Tobacco Use Smoking status: Former Packs/day: 1 Types: Cigarettes Quit date: 06/12/1985 Years since quittin.2 Smokeless tobacco: Current Substance Use Topics Alcohol use: No Alcohol/week: 0.0 standard drinks of alcohol Past Surgical History: Procedure Laterality Date CATARACT EXTRACTION Right Done 08/13 EYE SURGERY 2011 left eye retina build up EYE SURGERY 09/09 left cataract HERNIA REPAIR 1996 left Family History Problem Relation Name Age of Onset Heart disease Mother 67yrs IA COPD Father 67yrs Heart disease Brother Objective BP 115/59 (BP Location: Left arm, Patient Position: Sitting, BP Cuff Size: Large adult) Pulse 101 Temp 37 C (98.6 F) (Temporal) Ht 5' 7 (1.702 m) Wt 222 lb (101 kg) SpO2 97% BMI 34.77 kg/m Physical Exam Vitals reviewed. Constitutional: General: He is not in acute distress. Appearance: Normal appearance. He is not toxic-appearing. Eyes: General: No scleral icterus. Conjunctiva/sclera: Conjunctivae normal. Pupils: Pupils are equal, round, and reactive to light. Comments: Chronic blepharospams left eye, and mild chronic squinting Neck: Vascular: No carotid bruit. Comments: Cardiac murmur is auscultated bilaterally with radiation to carotids with no appreciable bruits noted Cardiovascular: Rate and Rhythm: Normal rate and regular rhythm. Heart sounds: Murmur heard. Comments: Occ skipped beat. Pulmonary: Effort: Pulmonary effort is normal. No respiratory distress. Breath sounds: Normal breath sounds. No wheezing or rales. Abdominal: General: Bowel sounds are normal. There is no distension. Palpations: Abdomen is soft. There is no mass. Tenderness: There is no abdominal tenderness. There is no guarding. Musculoskeletal: Cervical back: Normal range of motion and neck supple. No rigidity or tenderness. Right lower leg: No edema. Left lower leg: No edema. Lymphadenopathy: Cervical: No cervical adenopathy. Skin: General: Skin is warm and dry. Coloration: Skin is not jaundiced or pale. Findings: No bruising. Comments: Right foot slightly more purple than left, good sensation and good pulse Neurological: Mental Status: He is alert. Psychiatric: Mood and Affect: Mood normal. Examination of bilateral feet appears unremarkable. Skin is intact warm and dry good dorsalis pedis and posterior tibial pulses. Skin between the toes is checked there is no signs of ulceration skin breakdown or lesions. Plantar surface is intact again no signs of ulcerations lesions skin breakdown or signs of foreign bodies or other acute abnormalities. Skin itself is warm and dry. Good sensation and 8 points of contact on the plantar surface of the feet. Good full range of motion. Wheatley's test was negative. Right foot is noted to be more purplish in discoloration with slight edema in the right foot when compared to the left foot but pulses are still present Data Reviewed and Summarized Labs: Imaging/Testing: Doug Baker PA-C 09/06/2023 Please note that portions of this note may have been completed with voice recognition software. Documentation reviewed prior to signing but minor errors in auto clutch rebuilder may have occurred. documented in this encounter [facility] 07-05-2023 Telephone encounter Note Rx loaded Next ov 09/06/23 [facility] 07-05-2023 Miscellaneous Notes Rx loaded Next ov 09/06/23 Name of caller: Heike Contact phone number: [phone] Relationship to Patient: Pt Provider: Barbara Practice: [facility] Chief Complaint/Reason for Call: Pt and his daughter called in stating they contacted the pharmacy for a refill on his pioglitazone (Actos) 45 MG tablet, but they advised he needed to contact his PCP for further assistance before getting the medication refilled. Please advise. Best time of day caller can be reached: Any Patient advised that office/PCP has 24-48 business hours to return their call: No documented in this encounter [facility] 07-02-2023 Telephone encounter Note Name of caller: Heike Contact phone number: [phone] Relationship to Patient: Pt Provider: Barbara Practice: [place] Chief Complaint/Reason for Call: Pt and his daughter called in stating they contacted the pharmacy for a refill on his pioglitazone (Actos) 45 MG tablet, but they advised he needed to contact his PCP for further assistance before getting the medication refilled. Please advise. Best time of day caller can be reached: Any Patient advised that office/PCP has 24-48 business hours to return their call: No [facility] 06-08-2023 Telephone encounter Note Noted [facility] 06-08-2023 Miscellaneous Notes Noted Name of caller: Lisa Mckeon Contact phone number: [phone] Relationship to Patient: Daughter who organizes patient's medication Provider: Paulo Jimenez / Doug Baker Practice: [facility] Chief Complaint/Reason for Call: Daughter states at last blood pressure check, patient was given script for Amlodipine. Daughter wanted to confirm patient is to take the Amlodipine in addition to Lisinopril. Daughter was advised patient is to take the Amlodipine in addition to Lisinopril per Doug Baker's 05/21/23 note: Doug Baker PA-C to Disha Root MA JR 05/21/23 10:16 AM Due to the persistent elevation of blood pressure medication called amlodipine or Norvasc was sent to his pharmacy we will start a very low-dose of only 5 mg daily but I would take that once daily to try to help augment his other blood pressure medication and continue to have it rechecked. Chino Daughter had no other questions. Best time of day caller can be reached: any Patient advised that office/PCP has 24-48 business hours to return their call: N/A Placed call to patient. Two patient identifers confirmed. Was able to speak to patient. All concerns in message have been addressed. No questions at this time. Call ended Bp 157/72 Pulse 76 Bp 157/61 Pulse 71 documented in this encounter [facility] 06-08-2023 Telephone encounter Note Name of caller: Lisa - Daughter Contact phone number: [phone] Relationship to Patient: Daughter who organizes patient's medication Provider: Paulo Jimenez / Doug Baker Practice: [facility] Chief Complaint/Reason for Call: Daughter states at last blood pressure check, patient was given script for Amlodipine. Daughter wanted to confirm patient is to take the Amlodipine in addition to Lisinopril. Daughter was advised patient is to take the Amlodipine in addition to Lisinopril per Doug Baker's 05/21/23 note: Doug Baker PA-C to Disha Root MA JR 05/21/23 10:16 AM Due to the persistent elevation of blood pressure medication called amlodipine or Norvasc was sent to his pharmacy we will start a very low-dose of only 5 mg daily but I would take that once daily to try to help augment his other blood pressure medication and continue to have it rechecked. [place] Daughter had no other questions. Best time of day caller can be reached: any Patient advised that office/PCP has 24-48 business hours to return their call: N/A [facility] 05-21-2023 Telephone encounter Note Placed call to patient. Two patient identifers confirmed. Was able to speak to patient. All concerns in message have been addressed. No questions at this time. Call ended [facility] 05-21-2023 Telephone encounter Note Bp 157/72 Pulse 76 Bp 157/61 Pulse 71 [facility] 05-06-2023 Evaluation + Plan note Associated Problem(s): Cerebrovascular accident (CVA) (HCC) - Chronic and stable remote history of the same in 1994. - Continues on Plavix no acute bleeding concerns. - Does have right-sided carotid bruit patient has previously refused any carotid ultrasound or evaluation. [facility] 05-06-2023 Miscellaneous Notes Associated Problem(s): Cerebrovascular accident (CVA) (HCC) - Chronic and stable remote history of the same in 1994. - Continues on Plavix no acute bleeding concerns. - Does have right-sided carotid bruit patient has previously refused any carotid ultrasound or evaluation. Associated Problem(s): Hypercholesterolemia - Stable chronic and controlled Lipitor 20 mg daily. Associated Problem(s): Anxiety and depression - Stable and chronic well-controlled continue on Effexor 75 mg daily. Associated Problem(s): Type 2 diabetes mellitus with other specified complication, without long-term current use of insulin (HCC) - Chronic and stable most recent A1c was 6.2. - Patient admittedly is noncompliant does not follow an ADA diet or try to monitor his diet. - To continue Amaryl 4 mg twice a day, Jardiance 25 mg daily, metformin 1000 mg twice a day, and Actos 45 mg daily. Associated Problem(s): Essential hypertension - Chronic and unstable currently repeat blood pressure persistently elevated - We will come back in 2 weeks for nurse visit and recheck. - To continue lisinopril 10 mg daily documented in this encounter [facility] 05-06-2023 Evaluation + Plan note Associated Problem(s): Hypercholesterolemia - Stable chronic and controlled Lipitor 20 mg daily. [facility] 05-06-2023 Evaluation + Plan note Associated Problem(s): Anxiety and depression - Stable and chronic well-controlled continue on Effexor 75 mg daily. [facility] 05-06-2023 Evaluation + Plan note Associated Problem(s): Type 2 diabetes mellitus with other specified complication, without long-term current use of insulin (HCC) - Chronic and stable most recent A1c was 6.2. - Patient admittedly is noncompliant does not follow an ADA diet or try to monitor his diet. - To continue Amaryl 4 mg twice a day, Jardiance 25 mg daily, metformin 1000 mg twice a day, and Actos 45 mg daily. [facility] 05-06-2023 Evaluation + Plan note Associated Problem(s): Essential hypertension - Chronic and unstable currently repeat blood pressure persistently elevated - We will come back in 2 weeks for nurse visit and recheck. - To continue lisinopril 10 mg daily [facility] 05-06-2023 History of Present illness Narrative Images from the original note were not included. [facility] [address] [address] Dept: [phone] Dept Loc: [phone] Visit type: Established Patient Reason for Visit: Follow-up (CHECK UP ) Assessment and Plan 1. Type 2 diabetes mellitus without complication, without long-term current use of insulin ([facility]/HCC) ([facility]) Assessment & Plan: - Chronic and stable most recent A1c was 6.2. - Patient admittedly is noncompliant does not follow an ADA diet or try to monitor his diet. - To continue Amaryl 4 mg twice a day, Jardiance 25 mg daily, metformin 1000 mg twice a day, and Actos 45 mg daily. Orders: - Hemoglobin A1c - glimepiride (Amaryl) 4 MG tablet; TAKE 1 TABLET BY MOUTH IN THE MORNING AND 1 TABLET IN THE EVENING., Normal - Jardiance 25 MG; Take 1 tablet (25 mg) by mouth daily., Starting Alejandra 05/06/2023, Normal - metFORMIN (Glucophage) 1000 MG tablet; Take 1 tablet (1,000 mg) by mouth in the morning and 1 tablet (1,000 mg) in the evening. Take with meals., Starting Wed05/06/2023, Normal - pioglitazone (Actos) 45 MG tablet; Take 1 tablet (45 mg) by mouth daily., Starting Alejandra 05/06/2023, Normal - HP Diabetic Foot Exam - Comprehensive metabolic panel 2. Type 2 diabetes mellitus with other specified complication, without long-term current use of insulin ([facility]) Assessment & Plan: - Chronic and stable most recent A1c was 6.2. - Patient admittedly is noncompliant does not follow an ADA diet or try to monitor his diet. - To continue Amaryl 4 mg twice a day, Jardiance 25 mg daily, metformin 1000 mg twice a day, and Actos 45 mg daily. 3. Anxiety and depression Assessment & Plan: - Stable and chronic well-controlled continue on Effexor 75 mg daily. Orders: - venlafaxine XR (Effexor XR) 75 MG 24 hr capsule; Take 1 capsule (75 mg) by mouth daily., [facility] 05/06/2023, Normal 4. Essential hypertension Assessment & Plan: - Chronic and unstable currently repeat blood pressure persistently elevated - We will come back in 2 weeks for nurse visit and recheck. - To continue lisinopril 10 mg daily Orders: - lisinopril 10 MG tablet; Take 1 tablet (10 mg) by mouth daily., Starting [facility] 05/06/2023, Normal - Comprehensive metabolic panel 5. Hypercholesterolemia Assessment & Plan: - Stable chronic and controlled Lipitor 20 mg daily. Orders: - atorvastatin (Lipitor) 20 MG tablet; Take 1 tablet (20 mg) by mouth daily., Starting [facility] 05/06/2023, Normal 6. Cerebrovascular accident (CVA), unspecified mechanism (HCC) Assessment & Plan: - Chronic and stable remote history of the same in 1994. - Continues on Plavix no acute bleeding concerns. - Does have right-sided carotid bruit patient has previously refused any carotid ultrasound or evaluation. Orders: - clopidogrel (Plavix) 75 MG tablet; Take 1 tablet (75 mg) by mouth daily., Starting [facility] 05/06/2023, Normal 7. Colonoscopy refused 8. Screening for thyroid disorder - TSH 9. Rash and other nonspecific skin eruption Comments: acute rash scaley left side of trunk Orders: - triamcinolone (Kenalog) 0.1 % cream; Apply to affected area 1-2 times daily as needed. Avoid face and groin., Normal 10. Elevated blood pressure reading with diagnosis of hypertension Comments: Patient will return in 2 weeks for nurse visit to have his blood pressure rechecked. Follow up in about 4 months (around 09/05/2023), or will need a blood pressure check in 2 weeks.. Subjective HPI 77-year-old male with a history of hypertension, hypercholesterolemia and diabetes, remote CVA in 1994 with minimal deficit, mild right foot drop and left side facial and eye twitches. Wears glasses and vision seems to be ok. Review of Systems Constitutional: Negative for chills and fever. HENT: Negative for congestion and sore throat. Respiratory: Negative for cough and shortness of breath. Cardiovascular: Negative for chest pain. Gastrointestinal: Negative for abdominal pain, diarrhea, nausea and vomiting. Genitourinary: Positive for frequency (Usually up several times in the night). Negative for difficulty urinating. Musculoskeletal: Negative for back pain and neck pain. Skin: Positive for rash (Presence of a rash on the left side of his torso describes as a pruritus for several months). Neurological: Negative for dizziness and light-headedness. All other systems reviewed and are negative. No Known Allergies Outpatient Medications Prior to Visit Medication Sig Dispense Refill Cyanocobalamin (VITAMIN B 12 PO) Take by mouth. atorvastatin (Lipitor) 20 MG tablet Take 1 tablet (20 mg) by mouth daily. 30 tablet 3 clopidogrel (Plavix) 75 MG tablet Take 1 tablet (75 mg) by mouth daily. 30 tablet 3 glimepiride (Amaryl) 4 MG tablet TAKE 1 TABLET BY MOUTH IN THE MORNING AND 1 TABLET IN THE EVENING. 60 tablet 3 Jardiance 25 MG TAKE 1 TABLET BY MOUTH EVERY DAY 30 tablet 3 lisinopril 10 MG tablet Take 1 tablet (10 mg) by mouth daily. 30 tablet 3 metFORMIN (Glucophage) 1000 MG tablet Take 1 tablet (1,000 mg) by mouth in the morning and 1 tablet (1,000 mg) in the evening. Take with meals. 60 tablet 3 pioglitazone (Actos) 45 MG tablet Take 1 tablet (45 mg) by mouth daily. 30 tablet 3 venlafaxine XR (Effexor XR) 75 MG 24 hr capsule Take 1 capsule (75 mg) by mouth daily. 30 capsule 3 No facility-administered medications prior to visit. Past Medical History: Diagnosis Date CVA (cerebral vascular accident) ([facility]) 04/20/1995 right hemiperesis Depression Eye exam, routine 08/08/2019 no retinopathy Eye exam, routine 10/28/2021 Mild diabetic retinopathy Eye exam, routine 10/29/2022 no retinopathy Hypercholesterolemia Hypertension Left carotid bruit Morbid (severe) obesity due to excess calories ([facility]) 05/05/2023 Type II or unspecified type diabetes mellitus without mention of complication, not stated as uncontrolled ([facility]) 1995 Social History Tobacco Use Smoking status: Former Packs/day: 1.00 Types: Cigarettes Quit date: 06/12/1985 Years since quittin.9 Smokeless tobacco: Current Substance Use Topics Alcohol use: No Alcohol/week: 0.0 standard drinks of alcohol Past Surgical History: Procedure Laterality Date CATARACT EXTRACTION Right Done 08/13 EYE SURGERY 2011 left eye retina build up EYE SURGERY 09/09 left cataract HERNIA REPAIR 1996 left Family History Problem Relation Name Age of Onset Heart disease Mother 67yrs [place] COPD Father 67yrs Heart disease Brother Objective BP (!) 168/64 (BP Location: Left arm, Patient Position: Sitting, BP Cuff Size: Adult) Pulse 73 Temp 37.5 C (99.5 F) (Temporal) Ht 5' 7 (1.702 m) Wt 220 lb (99.8 kg) SpO2 99% BMI 34.46 kg/m Physical Exam Constitutional: General: He is not in acute distress. Appearance: Normal appearance. He is normal weight. He is not ill-appearing, toxic-appearing or diaphoretic. HENT: Mouth/Throat: Mouth: Mucous membranes are moist. Pharynx: No oropharyngeal exudate. Comments: Teeth in poor repair Eyes: General: No scleral icterus. Conjunctiva/sclera: Conjunctivae normal. Pupils: Pupils are equal, round, and reactive to light. Comments: Wears glasses does have a slight twitch to the left eye Neck: Vascular: Carotid bruit (Mild carotid bruit to the right side) present. Cardiovascular: Rate and Rhythm: Normal rate. Rhythm irregular. Heart sounds: Normal heart sounds. Comments: Rhythm is slightly irregular with known history of PVCs Pulses diminished in the lower extremities Pulmonary: Effort: Pulmonary effort is normal. No respiratory distress. Breath sounds: Normal breath sounds. No stridor. No wheezing or rales. Abdominal: General: Bowel sounds are normal. There is no distension. Tenderness: There is no abdominal tenderness. There is no guarding. Musculoskeletal: Cervical back: Normal range of motion and neck supple. No rigidity. Right lower leg: No edema. Left lower leg: No edema. Lymphadenopathy: Cervical: No cervical adenopathy. Skin: General: Skin is warm and dry. Comments: Right foot slightly purplish in color when in the seated position color improves with elevation of the foot. There is slight nonpitting edema to the right foot when compared to the left foot there is no pain in the feet bilaterally. Left foot skin color appears more normal. Pulses are present but greatly diminished but equal. On the left side of his torso rib cage there is a patch of dry slightly scaly silver white rash possible residual effect of old shingles no signs of cellulitis or infection. Neurological: Mental Status: He is alert. Psychiatric: Mood and Affect: Mood normal. Behavior: Behavior normal. Examination of bilateral feet appears unremarkable. Skin is intact warm and dry good dorsalis pedis and posterior tibial pulses. Skin between the toes is checked there is no signs of ulceration skin breakdown or lesions. Plantar surface is intact again no signs of ulcerations lesions skin breakdown or signs of foreign bodies or other acute abnormalities. Skin itself is warm and dry. Good sensation and 8 points of contact on the plantar surface of the feet. Good full range of motion. Wheatley's test was negative. Data Reviewed and Summarized Labs: Imaging/Testing: Doug Baker PA-C 05/06/2023 Please note that portions of this note may have been completed with voice recognition software. Documentation reviewed prior to signing but minor errors in auto clutch rebuilder may have occurred. documented in this encounter [facility] 04-28-2023 Telephone encounter Note Last appointment 01/07/2023 , Next appointment is 05/06/2023 Last filled 01/07/23 #30 with 3 refills [facility] 04-28-2023 Miscellaneous Notes Last appointment 01/07/2023 , Next appointment is 05/06/2023 Last filled 01/07/23 #30 with 3 refills documented in this encounter [facility] 01-11-2023 Telephone encounter Note Orders pended for doctor's signature [facility] 01-11-2023 Miscellaneous Notes Orders pended for doctor's signature Wesley Hampton DO 01/09/2023 2:05 PM EST Discussed with Dr.Jason Anderson. Agrees does not have atrial fibrillation. PACs. Some PVCs.. Call patient and suggest that he gets a Holter monitor placed because of PVCs. documented in this encounter [facility] 01-11-2023 Telephone encounter Note Wesley Hampton, DO 01/09/2023 2:05 PM EST Discussed with Dr.Jason Anderson. Agrees does not have atrial fibrillation. PACs. Some PVCs.. Call patient and suggest that he gets a Holter monitor placed because of PVCs. [facility] 01-07-2023 History of Present illness Narrative Subjective: Patient ID: Heike Carcamo is a 77 y.o. male. 77-year-old male with a history of hypertension, hypercholesterolemia and diabetes presents to the office brought accompanied by his daughter Lisa Review of Systems Constitutional: Positive for activity change (Affected due to recent right ankle fracture. Uses a walker for stability). Negative for appetite change, fatigue, fever and unexpected weight change. HENT: Patient continues to chew tobacco. Eyes: Negative for visual disturbance. Up to date with eye check up. No evidence of diabetic retinopathy. Chronic squinting around the left eye. Patient has eye examination done this past October Respiratory: Negative for cough, chest tightness and shortness of breath. Cardiovascular: Chronic carotid bruits. Patient continues to refuse getting a carotid Doppler. Gastrointestinal: Negative for abdominal distention, abdominal pain and blood in stool. Refuses colonoscopy Endocrine: Negative for polydipsia and polyuria. Does not check his blood sugars. Genitourinary: Negative for difficulty urinating. Musculoskeletal: Positive for arthralgias (Right ankle. Fractured that ankle in August. He did have surgery for this in September.). Patient is recovering from right ankle surgery. Patient's daughter states that orthopedic surgery felt that patient would need a walker possibly for the rest of his life. Skin: Negative for rash. Neurological: Negative for weakness, numbness and headaches. No burning of the feet Hematological: Does not bruise/bleed easily. Psychiatric/Behavioral: Patient feels anxiety and depression controlled with medication Objective: Physical Exam Constitutional: General: He is not in acute distress. Comments: Patient ambulates with the help of a walker HENT: Mouth/Throat: Comments: No concerning lesions seen in the mouth. Poor dentition. Dental caries upper posterior Eyes: Comments: Squinting around the left eye unchanged Neck: Vascular: Carotid bruit (Bilateral) present. Cardiovascular: Rate and Rhythm: Normal rate. Heart sounds: No murmur heard. Comments: Heart is regular with some ectopic heartbeats. Pulmonary: Breath sounds: Normal breath sounds. No wheezing or rales. Abdominal: General: There is no distension. Palpations: There is no mass. Tenderness: There is no abdominal tenderness. Musculoskeletal: Comments: Pulse present both feet The right foot and ankle edematous. Lymphadenopathy: Cervical: No cervical adenopathy. Skin: Findings: No rash. Neurological: Mental Status: He is alert. Coordination: Coordination normal. Comments: Sensory intact feet BP (!) 142/72 Pulse 52 Temp 36.6 C (97.8 F) (Temporal) Ht 5' 7 (1.702 m) Wt 211 lb (95.7 kg) SpO2 98% BMI 33.05 kg/m No Known Allergies Current Outpatient Medications on File Prior to Visit Medication Sig Dispense Refill atorvastatin (Lipitor) 20 MG tablet Take 20 mg by mouth daily. clopidogrel (Plavix) 75 MG tablet Take 75 mg by mouth daily. glimepiride (Amaryl) 4 MG tablet TAKE 1 TABLET BY MOUTH IN THE MORNING AND 1 TABLET IN THE EVENING. Jardiance 25 MG Take 25 mg by mouth daily. lisinopril 10 MG tablet Take 10 mg by mouth. metFORMIN (Glucophage) 1000 MG tablet Take 1,000 mg by mouth in the morning and 1,000 mg in the evening. Take with meals. pioglitazone (Actos) 45 MG tablet Take 45 mg by mouth daily. venlafaxine XR (Effexor XR) 75 MG 24 hr capsule Take 1 capsule (75 mg) by mouth daily. 30 capsule 3 No current facility-administered medications on file prior to visit. Patient Active Problem List Diagnosis Type 2 diabetes mellitus without complication (CMS/HCC) (HCC) Essential hypertension Noncompliance Chews tobacco Anxiety and depression Bilateral carotid bruits Hypercholesterolemia Social History Tobacco Use Smoking status: Former Packs/day: 1.00 Types: Cigarettes Quit date: 06/12/1985 Years since quittin.5 Smokeless tobacco: Current Substance Use Topics Alcohol use: No Alcohol/week: 0.0 standard drinks Past Surgical History: Procedure Laterality Date CATARACT EXTRACTION Right Done 08/13 EYE SURGERY 2011 left eye retina build up EYE SURGERY 09/09 left cataract HERNIA REPAIR 1996 left Family History Problem Relation Name Age of Onset Heart disease Mother 67yrs [place] COPD Father 67yrs Heart disease Brother Assessment / Plan: Diagnosis Plan 1. Ectopic heartbeats ECG 12 lead ECG 12 lead EKG 2. Bilateral carotid bruits Continues to refuse work-up. Made daughter Lisa aware could have a significant stenosis of her carotid artery 3. Anxiety and depression Effexor has been effective. Will continue 4. Hypercholesterolemia Comprehensive metabolic panel Comprehensive metabolic panel Controlled. Continue Lipitor. 5. Chews tobacco Patient will not stop chewing tobacco 6. Type 2 diabetes mellitus without complication, without long-term current use of insulin ([facility]) ([facility]) Comprehensive metabolic panel Hemoglobin A1c Comprehensive metabolic panel Hemoglobin A1c Continue Jardiance, Actos, metformin and Amaryl. Fasting blood sugar and A1c. Patient really should be checking fasting blood sugars 7. Colonoscopy refused 8. Poor dentition Patient should see a dentist documented in this encounter [facility] 11-02-2022 Telephone encounter Note Rx loaded [facility] 11-02-2022 Miscellaneous Notes Rx loaded Name of caller: Heike Contact phone number: [phone] Relationship to Patient: patient Provider: Dr Hampton Practice: [facility] [place] Chief Complaint/Reason for Call: Pt states [facility] pharmacy advised him they do not have any refills for his venlafaxine 75 mg. Per the chart an rx was sent 09/08/22 with 3 refills. Pt states he is out of the rx and cannot get a refill. Please advise. Best time of day caller can be reached: any Patient advised that office/PCP has 24-48 business hours to return their call: No documented in this encounter [facility] 11-02-2022 Telephone encounter Note Name of caller: Heike Contact phone number: [phone] Relationship to Patient: patient Provider: Dr Hampton Practice: [facility] [place] Chief Complaint/Reason for Call: Pt states [facility] pharmacy advised him they do not have any refills for his venlafaxine 75 mg. Per the chart an rx was sent 09/08/22 with 3 refills. Pt states he is out of the rx and cannot get a refill. Please advise. Best time of day caller can be reached: any Patient advised that office/PCP has 24-48 business hours to return their call: No [facility] Evaluation note No assessment inform ation available [facility] Work Phone: Evaluation note Diagnosis Type 2 diabetes mellitus without complication, without long-term current use of insulin (CMS/HCC) (HCC)- Primary Type 2 diabetes mellitus with other specified complication, without long-term current use of insulin (HCC) Anxiety and depression Essential hypertension Unspecified essential hypertension Hypercholesterolemia Pure hypercholesterolemia Cerebrovascular accident (CVA), unspecified mechanism (HCC) Colonoscopy refused Screening for thyroid disorder Rash and other nonspecific skin eruption Elevated blood pressure reading with diagnosis of hypertension documented in this encounter [facility]* Diagnosis Type 2 diabetes mellitus without complication, without long-term current use of insulin (CMS/HCC) (HCC) documented in this encounter [facility]* Diagnosis Flu vaccine need- Primary Essential hypertension Unspecified essential hypertension Hypercholesterolemia Pure hypercholesterolemia Cerebrovascular accident (CVA), unspecified mechanism (HCC) Type 2 diabetes mellitus without complication, without long-term current use of insulin (CMS/HCC) (HCC) Anxiety and depression documented in this encounter [facility]* Diagnosis Encounter for subsequent annual wellness visit (AWV) in Medicare patient- Primary Essential hypertension Unspecified essential hypertension Hypercholesterolemia Pure hypercholesterolemia Cerebrovascular accident (CVA), unspecified mechanism (HCC) Type 2 diabetes mellitus without complication, without long-term current use of insulin (CMS/HCC) (HCC) Anxiety and depression Bilateral carotid bruits Chews tobacco Routine general medical examination at health care facility Routine general medical examination at a health care facility [facility] Diagnosis Bilateral carotid bruits [facility]* Diagnosis Type 2 diabetes mellitus without complication, without long-term current use of insulin (CMS/HCC) (HCC)- Primary Essential hypertension Unspecified essential hypertension Hypercholesterolemia Pure hypercholesterolemia Anxiety and depression Cerebrovascular accident (CVA), unspecified mechanism (HCC) PAD (peripheral artery disease) (HCC) Unspecified peripheral vascular disease Chews tobacco Bilateral carotid bruits [facility]* Diagnosis Bilateral carotid bruits documented [facility]* Diagnosis PAD (peripheral artery disease) (HCC)- Primary Unspecified peripheral vascular disease Bilateral carotid bruits documented [facility]* Diagnosis Essential hypertension Unspecified essential hypertension [facility]* Diagnosis Essential hypertension Unspecified essential hypertension [facility]* Diagnosis Bilateral carotid bruits documented [facility]* Diagnosis PAD (peripheral artery disease) ([facility]) Unspecified peripheral vascular disease [facility]* Diagnosis Essential hypertension Unspecified essential hypertension [facility]* Diagnosis Type 2 diabetes mellitus without complication, without long-term current use of insulin (CMS/HCC) ([facility])- Primary Essential hypertension Unspecified essential hypertension Hypercholesterolemia Pure hypercholesterolemia Anxiety and depression Cerebrovascular accident (CVA), unspecified mechanism ([facility]) Chews tobacco documented [facility]* Diagnosis Hypercholesterolemia Pure hypercholesterolemia documented in [facility]* Diagnosis Ectopic heartbeats- Primary Unspecified premature beats Bilateral carotid bruits Anxiety and depression Hypercholesterolemia Pure hypercholesterolemia Chews tobacco Type 2 diabetes mellitus without complication, without long-term current use of insulin (CMS/HCC) ([facility]) Colonoscopy refused Poor dentition [facility]* Diagnosis PVC's (premature ventricular contractions)- Primary Other premature beats [facility]* Diagnosis Type 2 diabetes mellitus without complication, without long-term current use of insulin (CMS/HCC) (HCC)- Primary Type 2 diabetes mellitus with other specified complication, without long-term current use of insulin (HCC) Anxiety and depression Essential hypertension Unspecified essential hypertension Hypercholesterolemia Pure hypercholesterolemia Cerebrovascular accident (CVA), unspecified mechanism (HCC) Colonoscopy refused Screening for thyroid disorder Rash and other nonspecific skin eruption Elevated blood pressure reading with diagnosis of hypertension Flu vaccine need- Primary Essential hypertension Unspecified essential hypertension Hypercholesterolemia Pure hypercholesterolemia Cerebrovascular accident (CVA), unspecified mechanism (HCC) Type 2 diabetes mellitus without complication, without long-term current use of insulin (CMS/HCC) (HCC) Anxiety and depression Hypercholesterolemia Pure hypercholesterolemia documented in this encounter [facility]* Diagnosis Type 2 diabetes mellitus without complication, without long-term current use of insulin (CMS/HCC) (HCC)- Primary Type 2 diabetes mellitus with other specified complication, without long-term current use of insulin (HCC) Anxiety and depression Essential hypertension Unspecified essential hypertension Hypercholesterolemia Pure hypercholesterolemia Cerebrovascular accident (CVA), unspecified mechanism (HCC) Colonoscopy refused Screening for thyroid disorder Rash and other nonspecific skin eruption Elevated blood pressure reading with diagnosis of hypertension Flu vaccine need- Primary Essential hypertension Unspecified essential hypertension Hypercholesterolemia Pure hypercholesterolemia Cerebrovascular accident (CVA), unspecified mechanism (HCC) Type 2 diabetes mellitus without complication, without long-term current use of insulin (CMS/HCC) (HCC) Anxiety and depression Type 2 diabetes mellitus without complication, without long-term current use of insulin (CMS/HCC) (HCC)- Primary Essential hypertension Unspecified essential hypertension Hypercholesterolemia Pure hypercholesterolemia Anxiety and depression Cerebrovascular accident (CVA), unspecified mechanism (HCC) Type 2 diabetes mellitus with other circulatory complications (HCC) Palpitation Palpitations Aortic heart murmur documented in this encounter [facility]* Diagnosis Type 2 diabetes mellitus without complication, without long-term current use of insulin (CMS/HCC) (HCC)- Primary Type 2 diabetes mellitus with other specified complication, without long-term current use of insulin (HCC) Anxiety and depression Essential hypertension Unspecified essential hypertension Hypercholesterolemia Pure hypercholesterolemia Cerebrovascular accident (CVA), unspecified mechanism (HCC) Colonoscopy refused Screening for thyroid disorder Rash and other nonspecific skin eruption Elevated blood pressure reading with diagnosis of hypertension Flu vaccine need- Primary Essential hypertension Unspecified essential hypertension Hypercholesterolemia Pure hypercholesterolemia Cerebrovascular accident (CVA), unspecified mechanism (HCC) Type 2 diabetes mellitus without complication, without long-term current use of insulin (CMS/HCC) (HCC) Anxiety and depression Type 2 diabetes mellitus without complication, without long-term current use of insulin ([facility]/HCC) (HCC) documented in this encounter [facility] note* Diagnosis Type 2 diabetes mellitus with other specified complication, without long-term current use of insulin (HCC) Anxiety and depression Essential hypertension Unspecified essential hypertension Hypercholesterolemia Pure hypercholesterolemia Cerebrovascular accident (CVA), unspecified mechanism (HCC) Colonoscopy refused Screening for thyroid disorder Rash and other nonspecific skin eruption Elevated blood pressure reading with diagnosis of hypertension Flu vaccine need- Primary Essential hypertension Unspecified essential hypertension Hypercholesterolemia Pure hypercholesterolemia Cerebrovascular accident (CVA), unspecified mechanism (HCC) Type 2 diabetes mellitus without complication, without long-term current use of insulin (HCC) Anxiety and depression Type 2 diabetes mellitus without complication, without long-term current use of insulin (HCC) documented in this encounter [facility] note* Diagnosis Type 2 diabetes mellitus with other specified complication, without long-term current use of insulin (HCC) Anxiety and depression Essential hypertension Unspecified essential hypertension Hypercholesterolemia Pure hypercholesterolemia Cerebrovascular accident (CVA), unspecified mechanism (HCC) Colonoscopy refused Screening for thyroid disorder Rash and other nonspecific skin eruption Elevated blood pressure reading with diagnosis of hypertension Flu vaccine need- Primary Essential hypertension Unspecified essential hypertension Hypercholesterolemia Pure hypercholesterolemia Cerebrovascular accident (CVA), unspecified mechanism (HCC) Type 2 diabetes mellitus without complication, without long-term current use of insulin (HCC) Anxiety and depression 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, without long-term current use of insulin, macular edema presence unspecified (HCC)- Primary History of CVA (cerebrovascular accident) Transient ischemic attack (TIA), and cerebral infarction without residual deficits Essential hypertension Unspecified essential hypertension Hypercholesterolemia Pure hypercholesterolemia Anxiety and depression Lumbar radiculopathy, chronic documented in this encounter [facility] note* Diagnosis Type 2 diabetes mellitus with other specified complication, without long-term current use of insulin (HCC) Anxiety and depression Essential hypertension Unspecified essential hypertension Hypercholesterolemia Pure hypercholesterolemia Cerebrovascular accident (CVA), unspecified mechanism (HCC) Colonoscopy refused Screening for thyroid disorder Rash and other nonspecific skin eruption Elevated blood pressure reading with diagnosis of hypertension Flu vaccine need- Primary Essential hypertension Unspecified essential hypertension Hypercholesterolemia Pure hypercholesterolemia Cerebrovascular accident (CVA), unspecified mechanism (HCC) Type 2 diabetes mellitus without complication, without long-term current use of insulin (HCC) Anxiety and depression 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, without long-term current use of insulin, macular edema presence unspecified (HCC)- Primary Essential hypertension Unspecified essential hypertension Hypercholesterolemia Pure hypercholesterolemia Anxiety and depression Depression, unspecified depression type History of CVA (cerebrovascular accident) Transient ischemic attack (TIA), and cerebral infarction without residual deficits LOPEZ (dyspnea on exertion) Other dyspnea and respiratory abnormality Depression, unspecified depression type LOPEZ (dyspnea on exertion) Other dyspnea and respiratory abnormality documented in this encounter [facility] note* Diagnosis Type 2 diabetes mellitus with other specified complication, without long-term current use of insulin (HCC) Anxiety and depression Essential hypertension Unspecified essential hypertension Hypercholesterolemia Pure hypercholesterolemia Cerebrovascular accident (CVA), unspecified mechanism (HCC) Colonoscopy refused Screening for thyroid disorder Rash and other nonspecific skin eruption Elevated blood pressure reading with diagnosis of hypertension Flu vaccine need- Primary Essential hypertension Unspecified essential hypertension Hypercholesterolemia Pure hypercholesterolemia Cerebrovascular accident (CVA), unspecified mechanism (HCC) Type 2 diabetes mellitus without complication, without long-term current use of insulin (HCC) Anxiety and depression LOPEZ (dyspnea on exertion)- Primary Other dyspnea and respiratory abnormality 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, without long-term current use of insulin, macular edema presence unspecified (HCC) Essential hypertension Unspecified essential hypertension Hypercholesterolemia Pure hypercholesterolemia At high risk for coronary artery disease documented in this encounter [facility] note* Diagnosis Type 2 diabetes mellitus with other specified complication, without long-term current use of insulin (HCC) Anxiety and depression Essential hypertension Unspecified essential hypertension Hypercholesterolemia Pure hypercholesterolemia Cerebrovascular accident (CVA), unspecified mechanism (HCC) Colonoscopy refused Screening for thyroid disorder Rash and other nonspecific skin eruption Elevated blood pressure reading with diagnosis of hypertension Flu vaccine need- Primary Essential hypertension Unspecified essential hypertension Hypercholesterolemia Pure hypercholesterolemia Cerebrovascular accident (CVA), unspecified mechanism (HCC) Type 2 diabetes mellitus without complication, without long-term current use of insulin (HCC) Anxiety and depression Depression, unspecified depression type LOPEZ (dyspnea on exertion) Other dyspnea and respiratory abnormality [facility] instructions Additional Instructions Follow preprinted instructions from your surgeon's office. Implant Used?: Yes [facility] Work Phone: Summary Purpose Family History No Family History Records FoundNo Family History Records FoundNo Family History Records Found Advance Directives Advance Directive Response Recorded Date/ Time Living Will No October 08 022 8:57am Power of Trumpet Player No October 08, 2022 8:57am Chief Complaint and Reason for Visit Chief Complaint ORIF LATERAL MALLEOL EUS, POSSIBLE SYNDESMOSIS REPA Reason for Referral Specialty Diagnoses / Procedures Referred By Contac t Referred To Contact Cardiology Diagnoses Bilateral carotid bruits Procedures Vascular US carotid artery duplex bilateral Paulo Jimenez, DO [address] [place] [address] Referral ID Status Reason Start Date Expiration Date V isits Requested Visits Authorized [id number] Pending Review 01/06/2024 01/05/2025 1 1 Specialty Diagnoses / Procedures Referred By Contac t Referred To Contact Cardiology Diagnoses PAD (peripheral artery disease) (HCC) Procedures Vascular US lower extremity arterial duplex bilateral with TAJ BarbaraPaulo, DO [address] [place] [address] Referral ID Status Reason Start Date Expiration Date V isits Requested Visits Authorized [id number] Authorized 05/08/2024 05/08/2025 1 1 Referral ID Status Reason Start Date Expiration Date V isits Requested Visits Authorized [id number] Authorized 05/08/2024 05/08/2025 1 1 Referral ID Status Reason Start Date Expiration Date Visits Re quested Visits Authorized [id number] Closed 05/08/2024 05/08/2025 1 1 Specialty Diagnoses / Procedures Referred By Contac t Referred To Contact Cardiology Diagnoses PAD (peripheral artery disease) (HCC) Procedures Vascular US lower extremity arterial PVR Vascular US lower extremity arterial duplex bilateral with TAJ BarbaraPaulo, DO [address] [place] [address] Referral ID Status Reason Start Date Expiration Date Visits Re quested Visits Authorized [id number] Closed 05/08/2024 05/08/2025 1 1 Specialty Diagnoses / Procedures Referred By Contac t Referred To Contact Cardiology Diagnoses PVC's (premature ventricular contractions) Procedures Cardiac holter monitor (24 hours) Wesley Hampton, [address] [place] [address] Referral ID Status Reason Start Date Expiration Date V isits Requested Visits Authorized [id number] Authorized 01/11/2023 07/10/2023 1 1 Additional Source Comments (unrecognized sect ion and content) No Status Records FoundNo Status Records FoundNo Status Records Found INFORMATION SOURCE (unrecogn ized section and content) DATE CREATED AUTHOR 10/04/2022 [facility] DATE CREATED AUTHOR AUTHOR'S ORGANIZ ATION 12/25/2022 [facility] DATE CREATED AUTHOR AUTHOR'S ORGANIZ ATION 09/19/2025 [facility] Reason for Visit (unrecogniz ed section and content) Reason Comments Med Refill Reason Comments Follow-up CHECK UP Reason Onset Date Comments Blood Pressure Check 05/21/2023 Release of Information 05/21/2023 Reason Onset Date Comments Medication Problem 07/02/2023 Reason Comments Follow-up 4 month Reason Onset Date Comments Med Refill 09/29/2023 Reason Comments Medicare Annual Wellness Visit Jeremie t Reason Onset Date Comments Orders 04/19/2024 Vascular US [place] artery duplex bilateralEugene F Claudia Jimenezdered 01/06/24 Reason Onset Date Comments Orders 01/06/2024 Carotid doppler Reason Comments Follow-up Med check Reason Onset Date Comments Orders 01/06/2024 Carotid doppler Reason Onset Date Comments Orders 05/08/2024 TAJ B/L Legs / C arotid doppler Reason Comments Blood Pressure Check Specialty Diagnoses / Procedures Referred By Yobani painting Referred To Contact Cardiology Diagnoses Bilateral carotid bruits Procedures Vascular US carotid artery duplex bilateral Paulo Jimenez DO [address] [place] [address] Referral ID Status Reason Start Date Expiration Date Visits Re quested Visits Authorized [id number] Closed 05/08/2024 05/08/2025 1 1 Specialty Diagnoses / Procedures Referred By Yobani t Referred To Contact Cardiology Diagnoses PAD (peripheral artery disease) ([facility]) Procedures Vascular US lower extremity arterial PVR Vascular US lower extremity arterial duplex bilateral with TAJ Paulo Jimenez DO [address] [place] [address] Referral ID Status Reason Start Date Expiration Date Visits Re quested Visits Authorized [id number] Closed 05/08/2024 05/08/2025 1 1 Reason Onset Date Comments Med Refill 08/28/2024 Reason Onset Date Comments Other 08/08/2024 fyi Reason Comments Follow-up Med check Flu Vaccine Reason Comments Follow-up 4 month med check Reason Onset Date Comments Orders 01/11/2023 Holter Monitor Reason Onset Date Comments Medication Problem 11/02/2022 Reason Onset Date Comments Med Refill 04/20/2025 glimepiride ([place] ryl) 4 MG tablet Reason Comments Follow-up Med checkPatient is agreeable to have flu vaccine in the office Reason Onset Date Comments Referral 09/18/2025 MG-Cardiology / [facility]ld[facility] Care Teams (unrecognized sec tion and content) Commercial Photographer Relationship Specialty Start Date End Date Doug Baker PA-C [address], [place] [id number] PCP - General Physician Nursing Administrator 04/28/23 Commercial Photographer Relationship Specialty Start Date End Date Barbara Paulo Mueller, DO [address] [place], [place] [id number] PCP - General Family Medicine 05/03/23 Commercial Photographer Relationship Specialty Start Date End Date Barbara Paulo Mueller DO [address] [place], [place] [id number] PCP - General Family Medicine 05/03/23 Commercial Photographer Relationship Specialty Start Date End Date Barbara Paulo Mueller DO [address] [place], [place] [id number] PCP - General Family Medicine 05/03/23 Commercial Photographer Relationship Specialty Start Date End Date Paluo iJmenez Ervin DO [address] [place] [phone] PCP - General Family Medicine 05/03/23 Commercial Photographer Relationship Specialty Start Date End Date BarbaraPaulo, DO [address] [place] [address] PCP - General Family Medicine 05/03/23 Commercial Photographer Relationship Specialty Start Date End Date Barbara Paulo Mueller, DO [address] [place] [address] PCP - General Family Medicine 05/03/23 Commercial Photographer Relationship Specialty Start Date End Date Barbara Paulo Mueller, DO [address] [place] [address] PCP - General Family Medicine 05/03/23 Commercial Photographer Relationship Specialty Start Date End Date Barbara Paulo Mueller, DO [address] [place] [address] PCP - General Family Medicine 05/03/23 Commercial Photographer Relationship Specialty Start Date End Date BarbaraPaulo, DO [address] [place] [address] PCP - General Family Medicine 05/03/23 Commercial Photographer Relationship Specialty Start Date End Date Barbara Paulo Mueller, DO [address] [place] [address] PCP - General Family Medicine 05/03/23 Commercial Photographer Relationship Specialty Start Date End Date Barbara Paulo Mueller, DO [address] [place] [address] PCP - General Family Medicine 05/03/23 Commercial Photographer Relationship Specialty Start Date End Date Paulo Jimenez, DO [address] [place] [phone] PCP - General Family Medicine 05/03/23 Commercial Photographer Relationship Specialty Start Date End Date Paulo Jimenez, [address] [place] [address] PCP - General Family Medicine 05/03/23 Commercial Photographer Relationship Specialty Start Date End Date Paulo Jimenez, [address] [place] [address] PCP - General Family Medicine 05/03/23 Commercial Photographer Relationship Specialty Start Date End Date Paulo Jimenez, [address] [place] [phone] PCP - General Family Medicine 05/03/23 Commercial Photographer Relationship Specialty Start Date End Date Paulo Jimenez, [address] [place] [phone] PCP - General Family Medicine 05/03/23 Commercial Photographer Relationship Specialty Start Date End Date Wesley Hampton DO [address] [place] [id number] PCP - General 06/12/15 Commercial Photographer Relationship Specialty Start Date End Date Wesley Hampton DO [facility] [place], [place] [id number] PCP - General 06/12/15 Commercial Photographer Relationship Specialty Start Date End Date Wesley Hampton [place] [place] [address] PCP - General 06/12/15 Commercial Photographer Relationship Specialty Start Date End Date BarbaraPaulo, DO [address] [place] [phone] PCP - General Family Medicine 05/03/23 Commercial Photographer Relationship Specialty Start Date End Date BarbaraPaulo, DO [address] [place] [phone] PCP - General Family Medicine 05/03/23 Commercial Photographer Relationship Specialty Start Date End Date Barbara Paulo Mueller, DO [address] [place] [phone] PCP - General Family Medicine 05/03/23 Commercial Photographer Relationship Specialty Start Date End Date Barbara Paulo Mueller, DO [address] [place] [phone] PCP - General Family Medicine 05/03/23 Commercial Photographer Relationship Specialty Start Date End Date BarbaraPaulo, DO [address] [place] [phone] PCP - General Family Medicine 05/03/23 Commercial Photographer Relationship Specialty Start Date End Date BarbaraPaulo, DO [address] [place] [phone] PCP - General Family Medicine 05/03/23 Commercial Photographer Relationship Specialty Start Date End Date Barbara Paulo Mueller, DO [address] [place] [phone] PCP - General Family Medicine 05/03/23 Commercial Photographer Relationship Specialty Start Date End Date Paulo Jimenez DO [address] [facility] [address] [place] [address] PCP - General Family Medicine 05/03/23 FOR RECORDS PERTAINING TO PATIENTS WHO ARE OR HAVE BEEN ENROLLED IN A CHEMICAL DEPENDENCY/SUBSTANCEABUSE PROGRAM, SOME INFORMATION MAY BE OMITTED. This clinical summary was aggregated from multiple sources. Caution should be exercised in using it in the provision of clinical care. This summary normalizes information from multiple sources, and as a consequence, information in this document may materially change the coding, format and clinical context of patient data. In addition, data may be omitted in some cases. CLINICAL DECISIONS SHOULD BE BASED ON THE PRIMARY CLINICAL RECORDS. [employer] [facility]. provides no warranty or guarantee of the accuracy or completeness of information in this document.
[2025-11-25 02:19] LABS: Troponin T High Sens 2 HR 209 ng/L (<=22)
--- OUTSIDE RECORDS SUMMARY | 2025-11-25 02:24 | XMS RPT_ITS | CCD ---
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 170.2 cm Paulo Jimenez [facility] Work Phone: [facility] 09-18-2025 09:32-0400 Body mass index (BMI) [Ratio] 35.55 kg/m2 Paulo Jimenez [facility] Work Phone: [facility] 09-18-2025 09:32-0400 Body temperature 98.29 [degF] Paulo Jimenez [facility] Work Phone: [facility] 09-18-2025 09:32-0400 Body weight 102.97 kg Paulo Jimenez [facility] Work Phone: [facility] 09-18-2025 09:32-0400 Diastolic blood pressure 53 mm[Hg] Paulo Jimenez DO Work Phone: [facility] 09-18-2025 09:32-0400 Heart rate 100 /min Paulo Rasmussena DO Work Phone: [facility] 09-18-2025 09:32-0400 SaO2% (BldA) [Mass fraction] 100 % Paulo Rasmussena DO Work Phone: [facility] 09-18-2025 09:32-0400 Systolic blood pressure 131 mm[Hg] Paulo Jimenez DO Work Phone: [facility] 05-15-2025 13:05-0400 Body height 170.2 cm Paulo Jimenez DO Work Phone: [facility] 05-15-2025 13:05-0400 Body mass index (BMI) [Ratio] 36.34 kg/m2 Paulo Jimenez DO Work Phone: [facility] 05-15-2025 13:05-0400 Body temperature 97.9 [degF] Paulo Jimenez DO Work Phone: [facility] 05-15-2025 13:05-0400 Body weight 105.23 kg Paulo Jimenez DO Work Phone: [facility] 05-15-2025 13:05-0400 Diastolic blood pressure 72 mm[Hg] Paulo Jimenez DO Work Phone: [facility] 05-15-2025 13:05-0400 Heart rate 96 /min Paulo Jimenez DO Work Phone: [facility] 05-15-2025 13:05-0400 SaO2% (BldA) [Mass fraction] 98 % Paulo Rasmussena DO Work Phone: [facility] 05-15-2025 13:05-0400 Systolic blood pressure 124 mm[Hg] Paulo Rasmussena DO Work Phone: [facility] 01-09-2025 09:03-0500 Body height 170.2 cm Paulo Rasmussena DO Work Phone: [facility] 01-09-2025 09:03-0500 Body mass index (BMI) [Ratio] 35.71 kg/m2 Paulo Jimenez DO Work Phone: [facility] 01-09-2025 09:03-0500 Body temperature 98.71 [degF] Paulo Rasmussena DO Work Phone: [facility] 01-09-2025 09:03-0500 Body weight 103.42 kg Paulo Rasmussena DO Work Phone: [facility] 01-09-2025 09:03-0500 Diastolic blood pressure 76 mm[Hg] Paulo Rasmussena DO Work Phone: [facility] 01-09-2025 09:03-0500 Heart rate 86 /min Paulo Jimenez DO Work Phone: [facility] 01-09-2025 09:03-0500 SaO2% (BldA) [Mass fraction] 98 % Paulo Jimenez DO Work Phone: [facility] 01-09-2025 09:03-0500 Systolic blood pressure 121 mm[Hg] Paulo Rasmussena DO Work Phone: [facility] 09-05-2024 08:53-0400 Body height 170.2 cm Paulo Jimenez DO Work Phone: [facility] 09-05-2024 08:53-0400 Body mass index (BMI) [Ratio] 35.55 kg/m2 Paulo Rasmussena DO Work Phone: [facility] 09-05-2024 08:53-0400 Body temperature 97.2 [degF] Paulo Rasmussena DO Work Phone: [facility] 09-05-2024 08:53-0400 Body weight 102.97 kg Paulo Rasmussena DO Work Phone: [facility] 09-05-2024 08:53-0400 Diastolic blood pressure 75 mm[Hg] Paulo Rasmussena DO Work Phone: [facility] 09-05-2024 08:53-0400 Heart rate 65 /min Paulo Jimenez DO Work Phone: [facility] 09-05-2024 08:53-0400 SaO2% (BldA) [Mass fraction] 97 % Paulo Jimenez DO Work Phone: [facility] 09-05-2024 08:53-0400 Systolic blood pressure 117 mm[Hg] Paulo Jimenez DO Work Phone: [facility] 07-26-2024 09:22-0400 Body mass index (BMI) [Ratio] 35.71 kg/m2 [facility] 07-26-2024 09:22-0400 Body weight 103.42 kg [facility] 07-26-2024 09:22-0400 Diastolic blood pressure 68 mm[Hg] [facility] 07-26-2024 09:22-0400 Heart rate 80 /min [facility] 07-26-2024 09:22-0400 Systolic blood pressure 128 mm[Hg] [facility] 05-08-2024 08:31-0400 Body height 170.2 cm Paulo Jimenez DO Work Phone: [facility] 05-08-2024 08:31-0400 Body mass index (BMI) [Ratio] 35.55 kg/m2 Paulo Jimenez DO Work Phone: [facility] 05-08-2024 08:31-0400 Body temperature 97.5 [degF] Paulo Jimenez DO Work Phone: [facility] 05-08-2024 08:31-0400 Body weight 102.97 kg Paulo Jimenez DO Work Phone: [facility] 05-08-2024 08:31-0400 Diastolic blood pressure 62 mm[Hg] Paulo Jimenez DO Work Phone: [facility] 05-08-2024 08:31-0400 Heart rate 86 /min Paulo Jimenez DO Work Phone: [facility] 05-08-2024 08:31-0400 SaO2% (BldA) [Mass fraction] 99 % Paulo Jimenez DO Work Phone: [facility] 05-08-2024 08:31-0400 Systolic blood pressure 160 mm[Hg] Paulo Jimenez DO Work Phone: [facility] 01-06-2024 08:50-0500 Body mass index (BMI) [Ratio] 35.24 kg/m2 [facility] 01-06-2024 08:50-0500 Body temperature 97.3 [degF] Paulo Jimenez DO Work Phone: [facility] 01-06-2024 08:50-0500 Body weight 102.06 kg Paulo Jimenez DO Work Phone: [facility] 01-06-2024 08:50-0500 Diastolic blood pressure 60 mm[Hg] [facility] 01-06-2024 08:50-0500 Heart rate 85 /min Paulo Jimenez DO Work Phone: [facility] 01-06-2024 08:50-0500 SaO2% (BldA) [Mass fraction] 98 % Paulo Jimenez DO Work Phone: [facility] 01-06-2024 08:50-0500 Systolic blood pressure 118 mm[Hg] Paulo Jimenez DO Work Phone: [facility] 09-06-2023 08:50-0400 Body height 170.2 cm Doug Baker PA-C Work Phone: [facility] 09-06-2023 08:50-0400 Body mass index (BMI) [Ratio] 34.77 kg/m2 Doug SORIA-C Work Phone: [facility] 09-06-2023 08:50-0400 Body temperature 98.6 [degF] Doug SORIA-C Work Phone: [facility] [employer] [facility] 09-06-2023 08:50-0400 Body weight 100.7 kg Doug MAURERC Work Phone: [facility] 09-06-2023 08:50-0400 Diastolic blood pressure 59 mm[Hg] Doug Baker PA-C Work Phone: [facility] 09-06-2023 08:50-0400 Heart rate 101 /min Doug Baker PA-C Work Phone: [facility] 09-06-2023 08:50-0400 SaO2% (BldA) [Mass fraction] 97 % Doug Baker PA-C Work Phone: [facility] 09-06-2023 08:50-0400 Systolic blood pressure 115 mm[Hg] Doug Baker PA-C Work Phone: [facility] 05-06-2023 09:05-0400 Diastolic blood pressure 64 mm[Hg] Doug Baker PA-C Work Phone: [facility] 05-06-2023 09:05-0400 Systolic blood pressure 168 mm[Hg] Doug Baker PA-C Work Phone: [facility] 05-06-2023 08:44-0400 Body height 170.2 cm Doug Baker PA-C Work Phone: [facility] 05-06-2023 08:44-0400 Body mass index (BMI) [Ratio] 34.46 kg/m2 Doug Baker PA-C Work Phone: [facility] 05-06-2023 08:44-0400 Body temperature 99.5 [degF] Doug Baker PA-C Work Phone: [facility] 05-06-2023 08:44-0400 Body weight 99.79 kg Doug Baker PA-C Work Phone: [facility] 05-06-2023 08:44-0400 Heart rate 73 /min Doug Baker PA-C Work Phone: [facility] 05-06-2023 08:44-0400 SaO2% (BldA) [Mass fraction] 99 % Doug Baker PA-C Work Phone: [facility] 01-07-2023 08:50-0500 Diastolic blood pressure 72 mm[Hg] Wesley Hampton DO Work Phone: [facility] 01-07-2023 08:50-0500 Systolic blood pressure 142 mm[Hg] Wesley Hampton DO Work Phone: [facility] 01-07-2023 08:41-0500 Body height 170.2 cm Wesley Hampton DO Work Phone: [facility] 01-07-2023 08:41-0500 Body mass index (BMI) [Ratio] 33.05 kg/m2 Wesley Hampton DO Work Phone: [facility] 01-07-2023 08:41-0500 Body temperature 97.81 [degF] Wesley Hampton DO Work Phone: [facility] 01-07-2023 08:41-0500 Body weight 95.71 kg Wesley Hampton DO Work Phone: [facility] 01-07-2023 08:41-0500 Heart rate 52 /min Wesley Hampton DO Work Phone: [facility] 01-07-2023 08:41-0500 SaO2% (BldA) [Mass fraction] 98 % Wesley Hampton DO Work Phone: [facility] 10-14-2022 18:59-0500 Diastolic blood pressure 98 mm[Hg] [facility] Work Phone: 10-14-2022 18:59-0500 Heart rate 93 /min [facility] Work Phone: 10-14-2022 18:59-0500 Respiratory rate 18 /min [facility] Work Phone: 10-14-2022 18:59-0500 SaO2% (BldA) [Mass fraction] 100 % [facility] Work Phone: 10-14-2022 18:59-0500 Systolic blood pressure 137 mm[Hg] [facility] Work Phone: 10-14-2022 18:15-0500 Body temperature 97.9 [degF] [facility] Work Phone: 10-14-2022 16:46-0500 Inhaled oxygen flow rate 2 L/min [facility] Work Phone: 10-14-2022 13:16-0500 Body height 170.18 cm [facility] Work Phone: 10-14-2022 13:16-0500 Body mass index (BMI) [Ratio] 32.8 kg/m2 [facility] Work Phone: 10-14-2022 [id number] Body weight 95 kg [facility] Work Phone: Encounters Encounter Date Encounter Type Care Provider Facility Start: 09-18-2025 End: 09-18-2025 Telephone encounter Paulo Jimenez DO Work Phone: [facility] Comment on above: Referral ([facility] guadalupe / Domenico) Start: 09-18-2025 End: 09-18-2025 Subsequent hospital visit by physician Paulo Jimenez DO Work Phone: [facility] Radiology Comment on above: Depression, unspecif ied depression type; LOPEZ (dyspnea on exertion) Start: 09-18-2025 End: 09-18-2025 ambulatory [facility] Start: 09-18-2025 End: 09-18-2025 Office outpatient visit 25 minutes Paulo Jimenez DO Work Phone: [facility] Comment on above: 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, without long-term current use of insulin, macular edema presence unspecified (HCC) (Primary Dx); Essential hypertension; Hypercholesterolemia; Anxiety and depression; Depression, unspecified depression type; History of CVA (cerebrovascular accident); LOPEZ (dyspnea on exertion) Start: 09-18-2025 End: 09-18-2025 ambulatory [facility] Start: 05-20-2025 End: 07-20-2025 Follow-up encounter Paulo Jimenez DO Work Phone: [facility] Comment on above: CBC auto differentia l, Comprehensive metabolic panel, Hemoglobin A1c, TSH Start: 05-15-2025 End: 05-15-2025 Office outpatient visit 40 minutes Paulo Jimenez DO Work Phone: [facility] Comment on above: 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, without long-term current use of insulin, macular edema presence unspecified (HCC) (Primary Dx); History of CVA (cerebrovascular accident); Essential hypertension; Hypercholesterolemia; Anxiety and depression; Lumbar radiculopathy, chronic Start: 05-15-2025 End: 05-15-2025 ambulatory [facility] Start: 04-20-2025 End: 04-25-2025 Refill Paulo Jimenez DO Work Phone: [facility] Comment on above: Type 2 diabetes juan jose itus without complication, without long- term current use of insulin (HCC) Start: 01-14-2025 End: 01-14-2025 Orders Only Paulo Jimenez DO Work Phone: [facility] Comment on above: Type 2 diabetes juan jose itus without complication, without long- term current use of insulin (CMS/HCC) (HCC) Start: 01-09-2025 End: 01-09-2025 Office outpatient visit 25 minutes Paulo Jimenez DO Work Phone: [facility] Comment on above: Type 2 diabetes juan jose itus without complication, without long- term current use of insulin (CMS/HCC) (HCC) (Primary Dx); Essential hypertension; Hypercholesterolemia; Anxiety and depression; Cerebrovascular accident (CVA), unspecified mechanism (HCC); Type 2 diabetes mellitus with other circulatory complications (HCC); Palpitation; Aortic heart murmur Start: 01-09-2025 End: 01-09-2025 ambulatory [facility] Start: 12-29-2024 End: 12-29-2024 Refill Paulo Jimenez DO Work Phone: [facility] Comment on above: Hypercholesterolemia Start: 09-10-2024 End: 09-10-2024 Orders Only Paulo Jmienez DO Work Phone: [facility] Comment on above: Hypercholesterolemia Start: 09-05-2024 End: 09-05-2024 Office outpatient visit 25 minutes Paulo Jimenez DO Work Phone: [facility] Comment on above: Type 2 diabetes juan jose itus without complication, without long- term current use of insulin ([facility]/HCC) ([facility]) (Primary Dx); Essential hypertension; Hypercholesterolemia; Anxiety and depression; Cerebrovascular accident (CVA), unspecified mechanism ([facility]); Chews tobacco Start: 08-28-2024 End: 08-28-2024 Refill Paulo Jimenez DO Work Phone: [facility] Comment on above: Essential hypertensi on Start: 08-20-2024 End: 08-20-2024 Orders Only Paulo Jimenez DO Work Phone: [facility] Start: 08-16-2024 End: 08-16-2024 Subsequent hospital visit by physician Paulo Jimenez DO Work Phone: [facility] Vascular Lab Comment on above: Bilateral carotid br uits PAD (peripheral maritza ry disease) ([facility]) Start: 08-08-2024 End: 08-29-2024 Telephone encounter Paulo Jimenez DO Work Phone: [facility] Comment on above: Other (fyi) Start: 07-28-2024 End: 08-01-2024 Telephone encounter Paulo Jimenez DO Work Phone: [facility] Central Scheduling Start: 07-26-2024 End: 07-26-2024 Clinical Support [facility] Schedule [facility] Comment on above: Essential hypertensi on Start: 05-08-2024 Telephone encounter Paulo koehler DO Work Phone: [facility] Comment on above: Orders (TAJ B/L Legs / Carotid doppler) Start: 05-08-2024 End: 05-08-2024 Office outpatient visit 25 minutes Paulo Ervin Brabara DO Work Phone: [facility] Comment on above: Type 2 diabetes juan jose itus without complication, without long- term current use of insulin (CMS/HCC) (HCC) (Primary Dx); Essential hypertension; Hypercholesterolemia; Anxiety and depression; Cerebrovascular accident (CVA), unspecified mechanism (HCC); PAD (peripheral artery disease) (HCC); Chews tobacco; Bilateral carotid bruits Start: 04-19-2024 Telephone encounter Paulo Mueller Liam koehler DO Work Phone: [facility] Clinical Communication Comment on above: Orders (Vascular US carotid artery duplex bilateral/Paulo Jimenez, DO/ordered 01/06/24) Start: 01-06-2024 Telephone encounter Paulo Ervin Liam koehler DO Work Phone: [facility] Comment on above: Orders (Carotid dopp ler) Start: 01-06-2024 End: 01-06-2024 Assay of hemosiderin, quant Paulo Ervin Barbara DO Work Phone: [facility] Start: 01-06-2024 End: 01-06-2024 Patient encounter procedure Apulo Ervin Barbara DO Work Phone: [facility] Comment on above: Encounter for subseq uent annual wellness visit (AWV) in Medicare patient (Primary Dx); Essential hypertension; Hypercholesterolemia; Cerebrovascular accident (CVA), unspecified mechanism (HCC); Type 2 diabetes mellitus without complication, without long-term current use of insulin ([facility]/HCC) (HCC); Anxiety and depression; Bilateral carotid bruits; Chews tobacco; Routine general medical examination at health care facility Start: 09-29-2023 Refill Paulo monet DO Work Phone: [facility] Medicine Start: 09-06-2023 End: 09-06-2023 Office outpatient visit 25 minutes Doug Baker PA-C Work Phone: [facility] Comment on above: Flu vaccine need (Pr imary Dx); Essential hypertension; Hypercholesterolemia; Cerebrovascular accident (CVA), unspecified mechanism (HCC); Type 2 diabetes mellitus without complication, without long-term current use of insulin (CMS/HCC) (HCC); Anxiety and depression Start: 07-02-2023 Refill Paulo Mueller Calixto monet DO Work Phone: [facility] Comment on above: Type 2 diabetes juan jose itus without complication, without long- term current use of insulin (CMS/HCC) (HCC) Start: 05-21-2023 Telephone encounter Paulo koehler DO Work Phone: [facility] Comment on above: Blood Pressure Check ; Release of Information Start: 05-06-2023 End: 05-06-2023 Office outpatient visit 25 minutes Doug Baker PA-C Work Phone: [facility] Comment on above: Type 2 diabetes juan [...] 04-28-2023 Refill Wesley torres DO Work Phone: [facility] Start: 01-11-2023 Telephone encounter Wesley chen DO Work Phone: [facility] Comment on above: Orders (Holter Monit or) Start: 01-07-2023 End: 01-07-2023 Office outpatient visit 25 minutes Wesley Hampton DO Work Phone: [facility] Comment on above: Ectopic heartbeats ( Primary Dx); Bilateral carotid bruits; Anxiety and depression; Hypercholesterolemia; Chews tobacco; Type 2 diabetes mellitus without complication, without long-term current use of insulin (CMS/HCC) (HCC); Colonoscopy refused; Poor dentition Start: 11-02-2022 Refill Wesley torres DO Work Phone: [facility] Medicine Start: 10-14-2022 End: 10-14-2022 ambulatory Wesley Veronicataina Facility:[facility] Start: 10-14-2022 End: 10-14-2022 Admission to same day surgery center [facility] Start: 10-14-2022 End: 10-14-[address] [facility] Work Phone: Start: 10-06-2022 End: 10-06-2022 ambulatory Rodger Evans Facility:[facility] Start: 09-23-2022 End: 09-23-2022 Emergency department patient visit MATA GASTON Facility:[facility] Procedures Date Procedure Procedure Detail Performing Clinician [...] Diabetes: Estimated Glomerular Filtration Rate for [facility] Diabetes: Estimated Glomerular Filtration Rate for [facility] Start: 05-15-2026 Diabetes: Estimated Glomerular Filtration Rate for [facility] Diabetes: Estimated Glomerular Filtration Rate for [facility] Start: 01-09-2026 Diabetes: Estimated Glomerular Filtration Rate for [facility] Diabetes: Estimated Glomerular Filtration Rate for [facility] Start: 01-09-2026 Diabetes: Urine Albumin-Creatinine Ratio for Sh[facility] Diabetes: Urine Albumin-Creatinine Ratio for [facility] Start: 11-14-2025 Depression Monitoring Depression Monitoring [facility] Start: 09-18-2025 End: 09-18-2026 CBC W Auto Differential panel - Blood CBC auto differential Lab Routine 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, without long-term current use of insulin, macular edema presence unspecified (HCC) Expected: 09/18/2025 (Approximate), Expires: 09/18/2026 [facility] Work Phone: Comment on above: Expected: 09/18/2025 (Approximate), Expi res: 09/18/2026 Start: 09-18-2025 End: 09-18-2026 Comprehensive metabolic 1998 panel - Serum or Plasma Comprehensive metabolic panel Lab Routine 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, without long-term current use of insulin, macular edema presence unspecified (HCC) Expected: 09/18/2025 (Approximate), Expires: 09/18/2026 [facility] Comment on above: Expected: 09/18/2025 (Approximate), Expi res: 09/18/2026 Start: 09-18-2025 End: 09-18-2026 Hemoglobin A1c measurement Hemoglobin A1c Lab Routine 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, without long-term current use of insulin, macular edema presence unspecified (HCC) Expected: 09/18/2025 (Approximate), Expires: 09/18/2026 [facility] Comment on above: Expected: 09/18/2025 (Approximate), Expi res: 09/18/2026 Start: 09-18-2025 End: 09-18-2026 Lipid 1996 panel - Serum or Plasma Lipid panel Lab Routine 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, without long-term current use of insulin, macular edema presence unspecified (HCC) Expected: 09/18/2025 (Approximate), Expires: 09/18/2026 [facility] Comment on above: Expected: 09/18/2025 (Approximate), Expi res: 09/18/2026 Start: 09-18-2025 End: 09-18-2025 Patient encounter procedure 09/18/2025 9:40 AM EDT Office Visit [facility] [place] [address] [place] [address] Paulo Jimenez DO [address] [place] [address] [facility] Start: 09-05-2025 Diabetes: Estimated Glomerular Filtration Rate for [facility]ney [facility] Diabetes: Estimated Glomerular Filtration Rate for [facility] Start: 07-30-2025 COVID-19 Vaccine ( season) COVID-19 Vaccine ( season) [facility] Start: 07-30-2025 Influenza vaccination Influenza Vaccine (#1) [facility] Start: 07-10-2025 End: 07-10-2025 Patient encounter procedure 07/10/2025 9:30 AM EDT Office Visit [facility] [address] [place] [id number] Paulo Jimenez, [address] [place] [address] [facility] Start: 07-09-2025 Depression Monitoring Depression Monitoring [facility] Start: 05-15-2025 End: 05-15-2026 CBC W Auto Differential panel - Blood CBC auto differential Lab Routine 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, without long-term current use of insulin, macular edema presence unspecified (HCC) Expected: 05/15/2025 (Approximate), Expires: 05/15/2026 [facility] Work Phone: Comment on above: Expected: 05/15/2025 (Approximate), Expi res: 05/15/2026 Start: 05-15-2025 End: 05-15-2026 Comprehensive metabolic 1998 panel - Serum or Plasma Comprehensive metabolic panel Lab Routine 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, without long-term current use of insulin, macular edema presence unspecified (HCC) Expected: 05/15/2025 (Approximate), Expires: 05/15/2026 [facility] Comment on above: Expected: 05/15/2025 (Approximate), Expi res: 05/15/2026 Start: 05-15-2025 End: 05-15-2026 Hemoglobin A1c measurement Hemoglobin A1c Lab Routine 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, without long-term current use of insulin, macular edema presence unspecified (HCC) Expected: 05/15/2025 (Approximate), Expires: 05/15/2026 [facility] Comment on above: Expected: 05/15/2025 (Approximate), Expi res: 05/15/2026 Start: 05-15-2025 End: 05-15-2026 Thyrotropin [Units/volume] in Serum or Plasma TSH Lab Routine 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, without long-term current use of insulin, macular edema presence unspecified (HCC) Expected: 05/15/2025 (Approximate), Expires: 05/15/2026 [facility] Comment on above: Expected: 05/15/2025 (Approximate), Expi res: 05/15/2026 Start: 05-15-2025 End: 05-15-2025 Patient encounter procedure 05/15/2025 1:00 PM EDT Office Visit [facility] [address] [place] [address] Barbara Paulo Mueller, DO [address] [place] [address] [facility] Start: 04-30-2025 Screening for malignant neoplasm of colon Colorectal Cancer Screening [facility] Comment on above: Postponed from 1945 (Patient Refus ed) Start: 01-09-2025 End: 01-09-2026 CBC W Auto Differential panel - Blood CBC auto differential Lab Routine Type 2 diabetes mellitus without complication, without long-term current use of insulin (CMS/HCC) (HCC) Expected: 01/09/2025 (Approximate), Expires: 01/09/2026 [facility] Work Phone: Comment on above: Expected: 01/09/2025 (Approximate), Expi res: 01/09/2026 Start: 01-09-2025 End: 01-09-2026 Comprehensive metabolic 1998 panel - Serum or Plasma Comprehensive metabolic panel Lab Routine Type 2 diabetes mellitus without complication, without long-term current use of insulin (CMS/HCC) (HCC) Expected: 01/09/2025 (Approximate), Expires: 01/09/2026 [facility] Comment on above: Expected: 01/09/2025 (Approximate), Expi res: 01/09/2026 Start: 01-09-2025 End: 01-09-2026 Hemoglobin A1c measurement Hemoglobin A1c Lab Routine Type 2 diabetes mellitus without complication, without long-term current use of insulin (CMS/HCC) (HCC) Expected: 01/09/2025 (Approximate), Expires: 01/09/2026 [facility] Comment on above: Expected: 01/09/2025 (Approximate), Expi res: 01/09/2026 Start: 01-09-2025 End: 01-09-2026 Lipid 1996 panel - Serum or Plasma Lipid panel Lab Routine Type 2 diabetes mellitus without complication, without long-term current use of insulin (CMS/HCC) (HCC) Expected: 01/09/2025 (Approximate), Expires: 01/09/2026 [facility] Comment on above: Expected: 01/09/2025 (Approximate), Expi res: 01/09/2026 Start: 01-09-2025 End: 01-09-2026 Magnesium [Mass/volume] in Serum or Plasma Magnesium Lab Routine Palpitation Expected: 01/09/2025 (Approximate), Expires: 01/09/2026 [facility] Comment on above: Expected: 01/09/2025 (Approximate), Expi res: 01/09/2026 Start: 01-09-2025 End: 01-09-2025 Patient encounter procedure 01/09/2025 9:30 AM EST Office Visit [facility] [place] [address] [place] [address] Paulo Jimenez DO [address] [place] [address] [facility] Start: 11-29-2024 Medicare Advantage Annual Wellness Visit Medicare Advantage Annual Wellness Visit [facility] Start: 09-05-2024 End: 09-05-2025 CBC W Auto Differential panel - Blood CBC auto differential Lab Routine Type 2 diabetes mellitus without complication, without long-term current use of insulin ([facility]/HCC) ([facility]) Expected: 09/05/2024 (Approximate), Expires: 09/05/2025 [facility] Work Phone: Comment on above: Expected: 09/05/2024 (Approximate), Expi res: 09/05/2025 Start: 09-05-2024 End: 09-05-2025 Comprehensive metabolic 1998 panel - Serum or Plasma Comprehensive metabolic panel Lab Routine Type 2 diabetes mellitus without complication, without long-term current use of insulin (CMS/HCC) (HCC) Expected: 09/05/2024 (Approximate), Expires: 09/05/2025 [facility] Comment on above: Expected: 09/05/2024 (Approximate), Expi res: 09/05/2025 Start: 09-05-2024 End: 09-05-2025 Hemoglobin A1c measurement Hemoglobin A1c Lab Routine Type 2 diabetes mellitus without complication, without long-term current use of insulin (CMS/HCC) ([facility]) Expected: 09/05/2024 (Approximate), Expires: 09/05/2025 [facility] Comment on above: Expected: 09/05/2024 (Approximate), Expi res: 09/05/2025 Start: 09-05-2024 End: 09-05-2025 Lipid 1996 panel - Serum or Plasma Lipid panel Lab Routine Type 2 diabetes mellitus without complication, without long-term current use of insulin (CMS/HCC) ([facility]) Expected: 09/05/2024 (Approximate), Expires: 09/05/2025 [facility] Comment on above: Expected: 09/05/2024 (Approximate), Expi res: 09/05/2025 Start: 09-05-2024 End: 09-05-2024 Patient encounter procedure [facility] Start: 07-30-2024 COVID-19 Vaccine ( season) COVID-19 Vaccine () [facility] Start: 07-30-2024 COVID-19 Vaccine ( season) COVID-19 Vaccine ( season) [facility] Start: 07-30-2024 Influenza vaccination Influenza Vaccine (#1) [facility] Start: 07-06-2024 Depression Monitoring Depression Monitoring [facility] Start: 07-06-2024 Depresssion Monitoring Depresssion Monitoring [facility] Start: 05-08-2024 End: 05-08-2025 CBC W Auto Differential panel - Blood CBC auto differential Lab Routine Essential hypertension Expected: 05/08/2024 (Approximate), Expires: 05/08/2025 [facility] Work Phone: Comment on above: Expected: 05/08/2024 (Approximate), Expi res: 05/08/2025 Start: 05-08-2024 End: 05-08-2025 Comprehensive metabolic 1998 panel - Serum or Plasma Comprehensive metabolic panel Lab Routine Essential hypertension Expected: 05/08/2024 (Approximate), Expires: 05/08/2025 [facility] Comment on above: Expected: 05/08/2024 (Approximate), Expi res: 05/08/2025 Start: 05-08-2024 End: 05-08-2025 Hemoglobin A1c measurement Hemoglobin A1c Lab Routine Type 2 diabetes mellitus without complication, without long-term current use of insulin ([facility]/HCC) (HCC) Expected: 05/08/2024 (Approximate), Expires: 05/08/2025 [facility] Comment on above: Expected: 05/08/2024 (Approximate), Expi res: 05/08/2025 Start: 05-08-2024 End: 05-08-2025 Lipid 1996 panel - Serum or Plasma Lipid panel Lab Routine Hypercholesterolemia Expected: 05/08/2024 (Approximate), Expires: 05/08/2025 [facility] Comment on above: Expected: 05/08/2024 (Approximate), Expi res: 05/08/2025 Start: 05-08-2024 End: 05-08-2024 Patient encounter procedure 05/08/2024 9:00 AM EDT Office Visit [facility] [address] [place] [address] Paulo Jimenez, [address] [place] [address] [facility] Start: 01-09-2024 Diabetic foot examination Diabetes: Foot Exam [facility] Start: 01-06-2024 End: 01-06-2025 CBC W Auto Differential panel - Blood CBC auto differential Lab Routine Essential hypertension Expected: 01/06/2024 (Approximate), Expires: 01/06/2025 [facility] Work Phone: Comment on above: Expected: 01/06/2024 (Approximate), Expi res: 01/06/2025 Start: 01-06-2024 End: 01-06-2025 Comprehensive metabolic 1998 panel - Serum or Plasma Comprehensive metabolic panel Lab Routine Essential hypertension Expected: 01/06/2024 (Approximate), Expires: 01/06/2025 [facility] Comment on above: Expected: 01/06/2024 (Approximate), Expi res: 01/06/2025 Start: 01-06-2024 End: 02-08-2025 Hemoglobin A1c measurement Hemoglobin A1c Lab Routine Type 2 diabetes mellitus without complication, without long-term current use of insulin ([facility]/HCC) (HCC) Expected: 01/06/2024 (Approximate), Expires: 01/06/2025 [facility] Comment on above: Expected: 01/06/2024 (Approximate), Expi res: 01/06/2025 Start: 01-06-2024 End: 01-06-2025 Lipid 1996 panel - Serum or Plasma Lipid panel Lab Routine Hypercholesterolemia Expected: 01/06/2024 (Approximate), Expires: 01/06/2025 [facility] Comment on above: Expected: 01/06/2024 (Approximate), Expi res: 01/06/2025 Start: 01-06-2024 End: 01-06-2025 Thyrotropin [Units/volume] in Serum or Plasma TSH Lab Routine Hypercholesterolemia Expected: 01/06/2024 (Approximate), Expires: 01/06/2025 [facility] Comment on above: Expected: 01/06/2024 (Approximate), Expi res: 01/06/2025 Start: 01-06-2024 End: 01-06-2024 Patient encounter procedure [facility] Start: 10-29-2023 Glaucoma screening Diabetes: Retinopathy Screening [facility] Start: 09-06-2023 End: 09-06-2023 Patient encounter procedure 09/06/2023 9:00 AM EDT Office Visit [facility] [address] [place] [address] Doug Baker PA-C [address] [place] [address] [facility] Start: 07-30-2023 COVID-19 Vaccine ( season) COVID-19 Vaccine () [facility] Start: 07-30-2023 Influenza vaccination Influenza Vaccine (#1) [facility] Start: 05-21-2023 End: 05-21-2023 Clinical Support 05/21/2023 9:00 AM EDT Clinical Support [facility] [address] [place] [address] [facility] Start: 05-20-2023 End: 05-20-2023 Patient encounter procedure 05/20/2023 Office Visit Family Medicine Wesley Hampton DO [address] [place] [address] [facility] Start: 05-12-2023 Lipid panel Lipid Panel [facility] Start: 05-06-2023 End: 05-06-2024 Comprehensive metabolic 1998 panel - Serum or Plasma Comprehensive metabolic panel Lab Routine Type 2 diabetes mellitus without complication, without long-term current use of insulin ([facility]) (HCC) Essential hypertension Expected: 05/06/2023 (Approximate), Expires: 05/06/2024 [facility] Comment on above: Expected: 05/06/2023 (Approximate), Expi res: 05/06/2024 Start: 05-06-2023 End: 05-05-2024 Hemoglobin A1c/Hemoglobin.total in Blood Hemoglobin A1c Lab Routine Type 2 diabetes mellitus without complication, without long-term current use of insulin (CMS/[facility]) (HCC) Expected: 05/06/2023 (Approximate), Expires: 05/05/2024 [facility] Work Phone: Comment on above: Expected: 05/06/2023 (Approximate), Expi res: 05/05/2024 Start: 05-06-2023 End: 05-06-2024 Thyrotropin [Units/volume] in Serum or Plasma TSH Lab Routine Screening for thyroid disorder Expected: 05/06/2023 (Approximate), Expires: 05/06/2024 [facility] Comment on above: Expected: 05/06/2023 (Approximate), Expi res: 05/06/2024 Start: 05-06-2023 End: 05-06-2023 Patient encounter procedure 05/06/2023 Office Visit Family Medicine Doug Baker PA-C [address] [place] [address] [facility] Start: 04-06-2023 Hemoglobin A1c measurement Diabetes: Hemoglobin A1C [facility] Start: 01-12-2023 Diabetes: Urine Albumin-Creatinine Ratio for [facility]ney Health Diabetes: Urine Albumin-Creatinine Ratio for Kidney Health [facility] Start: 01-12-2023 Urine screening for protein Diabetes: Urine Protein Screening [facility] Start: 01-11-2023 End: 01-11-2025 Cardiac holter monitor (24 hours) Cardiac holter monitor (24 hours) [facility] Routine PVC's (premature ventricular contractions) Expected: 01/11/2023 (Approximate), Expires: 01/11/2025 [facility] Work Phone: Comment on above: Expected: 01/11/2023 (Approximate), Expi res: 01/11/2025 Start: 2022 RSV Immunization for Adults (1 - 1-dose 75+ series) RSV Immunization for Adults (1 - 1-dose 75+ series) [facility] Start: 10-14-2022 Catheterization of vein [facility] Work Phone: Start: 10-14-2022 Following clinical pathway protocol [facility] Work Phone: Start: 10-14-2022 Patient discharge [facility] Work Phone: Start: 10-14-20[address] Procedure [address] [facility] Work Phone: Start: 10-14-2022 Taking patient vital signs [facility] Work Phone: Start: 10-14-2022 Vital signs measurements [facility] Work Phone: Start: 10-14-[address] [facility] Work Phone: Start: 10-14-2022 Medication education [facility] Work Phone: Start: 2007 Hepatitis B Vaccines (1 of 3 - Risk 3-dose series) Hepatitis B Vaccines (1 of 3 - Risk 3-dose series) [facility] Start: 2007 RSV Immunization aged 60 or older (1 - 1-dose 60+ series) RSV Immunization aged 60 or older (1 - 1-dose 60+ series) [facility] Start: 1997 Zoster Vaccines (1 of 2) Zoster Vaccines (1 of 2) [facility] Start: 1966 DTaP/Tdap/Td Vaccines (1 - Tdap) DTaP/Tdap/Td Vaccines (1 - Tdap) [facility] Start: 1965 Hepatitis C screening Hepatitis C Screening [facility] Start: 1959 Depresssion Monitoring Depresssion Monitoring [facility] Start: 1957 Preventive dental service Diabetes: Dental Exam [facility] Start: 1954 DTaP/Tdap/Td Vaccines (1 - Tdap) DTaP/Tdap/Td Vaccines (1 - Tdap) [facility] Start: 04-23-1948 COVID-19 Vaccine (#1) COVID-19 Vaccine (#1) [facility] Start: 1945 Hepatitis B Vaccines (1 of 3 - 3-dose series) Hepatitis B Vaccines (1 of 3 - 3-dose series) [facility] Start: 1945 Medicare Advantage Annual Wellness Visit (AWV) Medicare Advantage Annual Wellness Visit (AWV) [facility] Start: 1945 Screening for malignant neoplasm of colon [facility] Start: 1945 Thyroid stimulating hormone measurement TSH Level [facility] Patient referral [facility] Work Phone: Immunizations Immunization Date Immunization Notes Care Provider Rafael thibodeaux 09-18-2025 Seasonal trivalent influenza vaccine, adjuvanted, preservative free Paulo De Lunabravoa DO Work Phone: [facility] 09-05-2024 Seasonal trivalent influenza vaccine, adjuvanted, preservative free Paulo Calixtolla DO Work Phone: [facility] 09-05-2024 influenza virus vacc ine, unspecified formulation Paulo De Lunalla DO Work Phone: [facility] 09-06-2023 Influenza, Seasonal, Quadrivalent, Adjuvanted Doug Baker PA-C Work Phone: [facility] 09-06-2023 influenza virus vacc ine, unspecified formulation Shmg Schedule [facility] 09-08-2022 Influenza, Seasonal, Quadrivalent, Adjuvanted Paulo Calixtochiki DO Work Phone: [facility] 09-08-2022 unknown vaccine or i mmune globulin Paulo Jimenez DO Work Phone: [facility] 09-08-2022 influenza virus vacc ine, unspecified formulation Paulo Jimenez DO Work Phone: [facility] 09-08-2021 Influenza, High-dose Seasonal, Quadrivalent, Preservative Free Wesley Hampton DO Work Phone: [facility] 09-12-2020 Influenza, High-dose Seasonal, Quadrivalent, Preservative Free Wesley Hampton DO Work Phone: [facility] 09-14-2019 influenza, high dose seasonal, preservative-free Wesley Busho DO Work Phone: [facility] 09-15-2018 influenza, injectabl e, quadrivalent, contains preservative Wesley Busho DO Work Phone: [facility] 09-15-2018 pneumococcal conjuga te vaccine, 13 valent Wesley Hampton DO Work Phone: [facility] 09-24-2017 influenza, injectabl e, quadrivalent, contains preservative Wesley Busho DO Work Phone: [facility] 10-06-2016 influenza, injectabl e, quadrivalent, contains preservative Wesley Busho DO Work Phone: [facility] 10-06-2016 pneumococcal polysac charide vaccine, 23 valent Wesley Busho DO Work Phone: [facility] 10-09-2015 influenza virus vacc ine, unspecified formulation Wesley Hampton DO Work Phone: [facility] 10-09-2015 influenza virus vacc ine, whole virus Paulo Jimenez DO Work Phone: [facility] 08-31-2002 tetanus toxoid, adsorbed Eug carleytapan Jimenez DO Work Phone: [facility] 08-31-2002 tetanus toxoid, unsp ecified formulation Wesley Bushbrian DO Work Phone: [facility] Payers Date Payer Category Payer Self-pay 2017 Medicare [employer] MEDICARE ADVANTAGE [employer] MEDICARE [id number] 2017-Present [address] [place], [place] [address] Medicare O [id number] 2017 Medicare HMO [employer] MEDICARE [id number] 2017 Medicare [id number] 2 Unknown [id number] 2 Unknown [id number] 2 Social History Date Type Detail Facility Start: 10-08-2022 Tobacco smoking stat [facility] Unknown if ever smoked [facility] Work Phone: Start: 1945 Sex Assigned At Male [facility] Work Phone: Start: 05-06-2023 End: 05-15-2025 Tobacco smoking status NHIS Ex-smoker [facility] End: 06-12-1985 History of tobacco use Current smoker [facility] End: 06-12-1985 History of tobacco use Cigarette Smoker [facility] Start: 11-09-2022 End: 09-18-2025 Alcohol intake Current non-drinker of alcohol (finding) [facility] Start: 11-09-2022 End: 05-15-2025 Alcohol intake [facility] Start: 1945 Sex Assigned At Not on file [facility] Start: 05-06-2023 End: 05-15-2025 Tobacco use and exposure User of smokeless tobacco [facility] Start: 05-06-2023 End: 05-15-2025 Tobacco use panel [facility] Start: 12-28-2022 End: 05-21-2023 Exposure to SARS-CoV-2 (event) Not sure [facility] Start: 06-29-2022 Sex Male (finding) [facility] Goals Date Patient Goal Desired Activity /State Functional Status Date Assessment Result Facility 05-15-2025 Patient Health Questionnaire 2 item (PHQ- 2) [Reported] [facility] Mental Status Date Assessment Result Facility 10-14-2022 Cognitive function Voice/Name [facility] Work Phone: 10-14-2022 Cognitive function Patient Orien tatromeo Person;Place;Time [facility] Work Phone: Clinical Notes 11-02-2022 to 09-18-2025 Telephone Encounter - Neelima Powers - 09/18/2025 4:21 PM EDTTelephone Encounter - Neelima Powers - 09/18/2025 4:21 PM Surya Root MA - 09/18/2025 9:40 AM EDTPatient Instructions Note Date & Type Note Facility 09-18-2025 Note Referral to [facility]-Car diology/Wads pended for dx and doctor's signature [facility] 09-18-2025 Telephone encounter Note Referral to [facility]-Cardiology/Wads pended for dx and doctor's signature [facility] 09-18-2025 Miscellaneous Notes Referral to [facility]-Cardiology/Wads pended for dx and doctor's signature documented in this encounter [facility] 09-18-2025 History of Present illness Narrative After obtaining consent, and per orders of Dr. Paulo Jimenez , injection of flu shot given in Left arm by Disha . Patient instructed to remain in clinic for 20 minutes afterwards, and to report any adverse reaction to me immediately. Did patient supply medication?No Images from the original note were not included. [facility] [address] [facility] [address] Visit type: Established Patient Reason for [...] Name Age of Onset Heart disease Mother ND age 67 COPD Father age 67- Smoker Heart disease Brother Antoine No Known Problems Brother Gigi documented in this encounter [facility] 05-15-2025 History of Present illness Narrative Images from the original note were not included. 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 Retinal bleed HERNIA REPAIR Left 1996 inguinal ORIF ANKLE FRACTURE Right 09/2022 Renee Colon [5] Family History Problem Relation Name Age of Onset Heart disease Mother ND age 67 COPD Father age 67- Smoker Heart disease Brother Antoine No Known Problems Brother Gigi documented in this encounter [facility] 05-15-2025 Instructions Paulo Jimenez DO - 05/15/2025 1:00 PM EDT Call of referral for Physical therapy for leg strengthening if you are interested documented in this encounter [facility] 05-15-2025 Note Call of referral for Physical therapy for leg strengthening if you are interested [facility] 04-20-2025 Telephone encounter Note Medication name: [...] prior to picking up the medication: Yes [facility] 04-20-2025 Miscellaneous Notes Medication name: glimepiride [...] the medication: Yes documented in this encounter [facility] 01-09-2025 History of Present illness Narrative Images from the original note were not included. [facility] - [address] [facility] [address] Visit type: Established Patient Reason for Visit: Follow-up (Med check) Assessment / Plan: Heike was seen today for follow-up. Diagnoses and all orders for this visit: Type 2 diabetes mellitus without complication, without long-term current use of insulin ([facility]) ([facility]) (Primary) Comments: Stable, continue Jardiance, metformin and [...] 2 diabetes mellitus with other circulatory complications ([facility]) Hypertension Noncompliance Chews tobacco Depression Bilateral carotid bruits Hypercholesterolemia Cerebrovascular accident (CVA) ([facility]) PAD (peripheral artery disease) ([facility]) 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 documented in this encounter [facility] 12-29-2024 Telephone encounter Note Rx loaded [facility] 12-29-2024 Miscellaneous Notes Rx loaded documented in this encounter [facility] 09-05-2024 History of Present illness Narrative Images from the original note were not included. [facility] - [address] [facility] [address] Visit type: Established Patient Reason for [...] accident (CVA) (HCC) PAD (peripheral artery disease) ([facility]) Social History Tobacco Use Smoking status: Former [...] Name Age of Onset Heart disease Mother ND age 67 COPD Father age 67- Smoker [...] motion is adequate. documented in this encounter [facility] 08-28-2024 Telephone encounter Note Rx loaded [facility] 08-28-2024 Miscellaneous Notes Rx loaded Medication [...] the medication: Yes documented in this encounter [facility] 08-28-2024 Telephone encounter Note Medication name: [...] prior to picking up the medication: Yes [facility] 08-08-2024 Telephone encounter Note Name of caller: Lisa Contact phone number: [phone] Relationship to Patient: daughter Provider: Dr Jimenez Practice: [facility] Chief Complaint/Reason for Call: Lisa called to let dr jimenez know that patient has scheduled the carotid appt's he had orders for. Please advise. Best time of day caller can be reached: any Patient advised that office/PCP has 24-48 business hours to return their call: Yes [facility] 08-08-2024 Miscellaneous Notes Name of caller: Lisa Contact phone number: [phone] Relationship to Patient: daughter Provider: Dr Jimenez Practice: [facility] Chief Complaint/Reason for Call: Lisa called to let dr jimenez know that patient has scheduled the carotid appt's he had orders for. Please advise. Best time of day caller can be reached: any Patient advised that office/PCP has 24-48 business hours to return their call: Yes documented in this encounter [facility] 08-03-2024 Telephone encounter Note noted [facility] 08-03-2024 Miscellaneous Notes noted Spoke with [...] Attempt: Lvm 07/28/2024 documented in this encounter [facility] 08-01-2024 Telephone encounter Note Spoke with patient and he consents to getting the carotid doppler done and asked if I would reach out to his daughter Lisa Velez and reached out to daughter and daughter was given central scheduling number to call and schedule patient. [facility] 08-01-2024 Miscellaneous Notes Spoke with patient [...] Name: Taj and Carotid duplex 1st Attempt: [facility] 07/24/2024 2nd Attempt: [facility] 07/28/2024 documented in this encounter [facility] 07-28-2024 Telephone encounter Note We have been unable to reach your patient to schedule their testing. Test Name: Taj and Carotid duplex 1st Attempt: [facility] 07/24/2024 2nd Attempt: [facility] 07/28/2024 [facility] 07-26-2024 History of Present illness Narrative [...] 9:40 AM SCHEDULE, [facility] 9:30 AM Paulo Jimenez, DO [facility] Cc'd provider blood pressure readings? Yes Presently blood pressure reading satisfactory on second reading. Will discuss meds in August Placed call to patient. Unable to reach them by phone to discuss BP reading results. Left detailed message to return call to discuss results. documented in this encounter [facility] 07-26-2024 History of Present illness Narrative [...] 9:40 AM SCHEDULE, [facility] 09/05/2024 9:30 AM Paulo Jimenez, [facility] Cc'd provider blood pressure readings? Yes [...] time. Call ended documented in this encounter [facility] 05-08-2024 Telephone encounter Note Referral pended for dx and doctor's signature [facility] 05-08-2024 Miscellaneous Notes Referral pended for dx and doctor's signature documented in this encounter [facility] 05-08-2024 History of Present illness Narrative Images from the original note were not included. [facility] [address] [place] [address] [address] [facility] [address] Visit type: Established Patient Reason for Visit: Follow-up (Med check) Assessment / Plan: Heike was seen today for follow-up. Diagnoses and all orders for this visit: Type 2 diabetes mellitus without complication, without long-term current use of insulin ([facility]) ([facility]) (Primary) Comments: Stable, continue Jardiance, metformin and [...] complication, without long-term current use of insulin ([facility]) ([facility]) Essential hypertension Noncompliance Chews tobacco Anxiety and depression Bilateral carotid bruits Hypercholesterolemia Cerebrovascular accident (CVA) ([facility]) PAD (peripheral artery disease) ([facility]) Social History Tobacco Use Smoking status: Former [...] Name Age of Onset Heart disease Mother ND age 67 COPD Father age 67- Smoker [...] sensory exam normal. documented in this encounter [facility] 04-20-2024 Telephone encounter Note Orders cancelled [facility] 04-20-2024 Note Addended by: NEELIMA POWERS on: 04/20/2024 07:09 AM Modules accepted: Orders [facility] 04-20-2024 Miscellaneous Notes Addended by: NEELIMA POWERS on: 04/20/2024 07:09 AM Modules accepted: Orders Orders pended for doctor's signature documented in this encounter [facility] 04-20-2024 Miscellaneous Notes Orders cancelled We have been unable to reach your patient to schedule their testing. Test Name: Vascular US carotid artery duplex bilateral 1st Attempt: LVM 04/18/24 2nd Attempt: LVM 04/19/24 documented in this encounter [facility] 04-19-2024 Telephone encounter Note We have been unable to reach your patient to schedule their testing. Test Name: Vascular US carotid artery duplex bilateral 1st Attempt: LVM 04/18/24 2nd Attempt: LVM 04/19/24 [facility] 04-19-2024 Miscellaneous Notes We have been unable to reach your patient to schedule their testing. Test Name: Vascular US carotid artery duplex bilateral 1st Attempt: LVM 04/18/24 2nd Attempt: LVM 04/19/24 documented in this encounter [facility] 01-06-2024 Telephone encounter Note Orders pended for doctor's signature [facility] 01-06-2024 Miscellaneous Notes Orders pended for doctor's signature documented in this encounter [facility] 01-06-2024 History of Present illness Narrative Images from the original note were not included. 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 Lives with his daughter Health Habits/Nutrition: [...] tobacco Encouraged cessation documented in this encounter [facility] 01-06-2024 Instructions Paulo Jimenez DO - 01/06/2024 [...] Recommendations: A preventive eye exam by an personnel security specialist is recommended every 1-2 years to screen for glaucoma, cataracts, macular degeneration, and other eye disorders. A preventive dental visit is recommended every 6 months. Try to get at least 150 minutes of exercise per week or 10,000 steps per day on a pedometer. You need 1200-1500mg of calcium and 0582-4546 international units of vitamin D per day. [...] or a motorcycle documented in this encounter [facility] 09-06-2023 Evaluation + Plan note Associated Problem(s): Cerebrovascular accident (CVA) (HCC) - Remote chronic history of the same continue on his Plavix. [facility] 09-06-2023 Evaluation + Plan note Associated Problem(s): Anxiety and depression - Chronic and stable we will continue on Effexor 75 mg daily. [facility] 09-06-2023 Miscellaneous Notes Associated Problem(s): Cerebrovascular accident (CVA) (HCC) - Remote chronic history of the same continue on his Plavix. Associated Problem(s): Anxiety and depression - Chronic and stable we will continue on Effexor 75 mg daily. Associated Problem(s): Type 2 diabetes mellitus without complication, without long-term current use of insulin ([facility]) ([facility]) - Chronic and stable hemoglobin A1c is 6.9 at [id number] today. Continue on his current medications Amaryl 4 mg twice daily, Jardiance 25 mg daily metformin 1000 mg twice daily and Actos 45 mg daily. Associated Problem(s): Essential hypertension - Chronic and stable we will continue on Norvasc 5 mg daily, lisinopril 10 mg daily documented in this encounter [facility] 09-06-2023 Evaluation + Plan note Associated Problem(s): Type 2 diabetes mellitus without complication, without long-term current use of insulin ([facility]) ([facility]) - Chronic and stable hemoglobin A1c is 6.9 at [id number] today. Continue on his current medications Amaryl 4 mg twice daily, Jardiance 25 mg daily metformin 1000 mg twice daily and Actos 45 mg daily. [facility] 09-06-2023 Evaluation + Plan note Associated Problem(s): Essential hypertension - Chronic and stable we will continue on Norvasc 5 mg daily, lisinopril 10 mg daily [facility] 09-06-2023 History of Present illness Narrative Images from the original note were not included. [facility] [address] [facility] [address] Dept: [phone] Dept Loc: [phone] Visit type: Established Patient Reason for Visit: [...] Normal 4. Cerebrovascular accident (CVA), unspecified mechanism ([facility]) Assessment & Plan: - Remote chronic history of the same continue on his Plavix. Orders: - clopidogrel (Plavix) 75 MG tablet; Take 1 tablet (75 mg) by mouth daily., Starting Wed09/06/2023, Normal 5. Type 2 diabetes mellitus without complication, without long-term current use of insulin ([facility]) (HCC) Assessment & Plan: - Chronic and stable hemoglobin A1c is 6.9 at [id number] today. Continue on his current medications Amaryl [...] Says his sugars are well controlled with [id number] A1c today 6.9. Lives at home with [...] Morbid (severe) obesity due to excess calories ([facility]) 05/05/2023 Type II or unspecified type diabetes mellitus without mention of complication, not stated as uncontrolled ([facility]) 1995 Social History Tobacco Use Smoking status: [...] Age of Onset Heart disease Mother 67yrs ND COPD Father 67yrs Heart disease Brother Objective [...] prior to signing but minor errors in art psychotherapist or therapist may have occurred. documented in this encounter [facility] 07-05-2023 Telephone encounter Note Rx loaded Next ov 09/06/23 [facility] 07-05-2023 Miscellaneous Notes Rx loaded Next ov 09/06/23 Name of caller: Heike Contact phone number: [phone] Relationship to Patient: Pt Provider: Barbara Practice: [...] their call: No documented in this encounter [facility] 07-02-2023 Telephone encounter Note Name of caller: Heike Contact phone number: [phone] Relationship to Patient: Pt Provider: Barbara Practice: [place] Chief Complaint/Reason for Call: Pt and his [...] business hours to return their call: No [facility] 06-08-2023 Telephone encounter Note Noted [facility] 06-08-2023 Miscellaneous Notes Noted Name of caller: Lisa Mckeon Contact phone number: [phone] Relationship to Patient: Daughter who organizes patient's medication Provider: Paulo Jimenez / Doug Baker Practice: [facility] Chief Complaint/Reason for Call: Daughter states at [...] 157/61 Pulse 71 documented in this encounter [facility] 06-08-2023 Telephone encounter Note Name of caller: Lisa - Daughter Contact phone number: [phone] Relationship to Patient: Daughter who organizes patient's medication Provider: Paulo Jimenez / Doug Baker Practice: [facility] Chief Complaint/Reason for Call: Daughter states at [...] business hours to return their call: N/A [facility] 05-21-2023 Telephone encounter Note Placed call to patient. Two patient identifers confirmed. Was able to speak to patient. All concerns in message have been addressed. No questions at this time. Call ended [facility] 05-21-2023 Telephone encounter Note Bp 157/72 Pulse 76 Bp 157/61 Pulse 71 [facility] 05-06-2023 Evaluation + Plan note Associated Problem(s): Cerebrovascular accident (CVA) (HCC) - Chronic and stable remote history of the same in 1994. - Continues on Plavix no acute bleeding concerns. - Does have right-sided carotid bruit patient has previously refused any carotid ultrasound or evaluation. [facility] 05-06-2023 Miscellaneous Notes Associated Problem(s): Cerebrovascular [...] 10 mg daily documented in this encounter [facility] 05-06-2023 Evaluation + Plan note Associated Problem(s): Hypercholesterolemia - Stable chronic and controlled Lipitor 20 mg daily. [facility] 05-06-2023 Evaluation + Plan note Associated Problem(s): Anxiety and depression - Stable and chronic well-controlled continue on Effexor 75 mg daily. [facility] 05-06-2023 Evaluation + Plan note Associated [...] a day, and Actos 45 mg daily. [facility] 05-06-2023 Evaluation + Plan note Associated Problem(s): Essential hypertension - Chronic and unstable currently repeat blood pressure persistently elevated - We will come back in 2 weeks for nurse visit and recheck. - To continue lisinopril 10 mg daily [facility] 05-06-2023 History of Present illness Narrative Images from the original note were not included. [facility] [address] [address] Dept: [phone] Dept Loc: [phone] Visit type: Established Patient Reason for Visit: Follow-up (CHECK UP ) Assessment and Plan 1. Type 2 diabetes mellitus without complication, without long-term current use of insulin ([facility]/HCC) ([facility]) Assessment & Plan: - Chronic and stable [...] complication, without long-term current use of insulin ([facility]) Assessment & Plan: - Chronic and stable [...] capsule (75 mg) by mouth daily., Starting [facility] 05/06/2023, Normal 4. Essential hypertension Assessment & Plan: - Chronic and unstable currently repeat blood pressure persistently elevated - We will come back in 2 weeks for nurse visit and recheck. - To continue lisinopril 10 mg daily Orders: - lisinopril 10 MG tablet; Take 1 tablet (10 mg) by mouth daily., Starting [facility] 05/06/2023, Normal - Comprehensive metabolic panel 5. Hypercholesterolemia Assessment & Plan: - Stable chronic and controlled Lipitor 20 mg daily. Orders: - atorvastatin (Lipitor) 20 MG tablet; Take 1 tablet (20 mg) by mouth daily., Starting [facility] 05/06/2023, Normal 6. Cerebrovascular accident (CVA), unspecified mechanism (HCC) Assessment & Plan: - Chronic and stable remote history of the same in 1994. - Continues on Plavix no acute bleeding concerns. - Does have right-sided carotid bruit patient has previously refused any carotid ultrasound or evaluation. Orders: - clopidogrel (Plavix) 75 MG tablet; Take 1 tablet (75 mg) by mouth daily., Starting [facility] 05/06/2023, Normal 7. Colonoscopy refused 8. Screening [...] History: Diagnosis Date CVA (cerebral vascular accident) ([facility]) 04/20/1995 right hemiperesis Depression Eye exam, routine 08/08/2019 no retinopathy Eye exam, routine 10/28/2021 Mild diabetic retinopathy Eye exam, routine 10/29/2022 no retinopathy Hypercholesterolemia Hypertension Left carotid bruit Morbid (severe) obesity due to excess calories ([facility]) 05/05/2023 Type II or unspecified type diabetes mellitus without mention of complication, not stated as uncontrolled ([facility]) 1995 Social History Tobacco Use Smoking status: [...] Age of Onset Heart disease Mother 67yrs ND COPD Father 67yrs Heart disease Brother Objective [...] prior to signing but minor errors in art psychotherapist or therapist may have occurred. documented in this encounter [facility] 04-28-2023 Telephone encounter Note Last appointment 01/07/2023 , Next appointment is 05/06/2023 Last filled 01/07/23 #30 with 3 refills [facility] 04-28-2023 Miscellaneous Notes Last appointment 01/07/2023 , Next appointment is 05/06/2023 Last filled 01/07/23 #30 with 3 refills documented in this encounter [facility] 01-11-2023 Telephone encounter Note Orders pended for doctor's signature [facility] 01-11-2023 Miscellaneous Notes Orders pended for doctor's signature Wesley Hampton DO 01/09/2023 2:05 PM EST Discussed with Dr.Jason Anderson. Agrees does not have atrial fibrillation. PACs. Some PVCs.. Call patient and suggest that he gets a Holter monitor placed because of PVCs. documented in this encounter [facility] 01-11-2023 Telephone encounter Note Wesley Hampton, DO 01/09/2023 2:05 PM EST Discussed with Dr.Jason Anderson. Agrees does not have atrial fibrillation. PACs. Some PVCs.. Call patient and suggest that he gets a Holter monitor placed because of PVCs. [facility] 01-07-2023 History of Present illness Narrative [...] Age of Onset Heart disease Mother 67yrs ND COPD Father 67yrs Heart disease Brother Assessment [...] complication, without long-term current use of insulin ([facility]) ([facility]) Comprehensive metabolic panel Hemoglobin A1c Comprehensive metabolic panel Hemoglobin A1c Continue Jardiance, Actos, metformin and Amaryl. Fasting blood sugar and A1c. Patient really should be checking fasting blood sugars 7. Colonoscopy refused 8. Poor dentition Patient should see a dentist documented in this encounter [facility] 11-02-2022 Telephone encounter Note Rx loaded [facility] 11-02-2022 Miscellaneous Notes Rx loaded Name of caller: Heike Contact phone number: [phone] Relationship to Patient: patient Provider: Dr Hampton Practice: [facility] [place] Chief Complaint/Reason for Call: Pt states [facility] pharmacy advised him they do not have [...] their call: No documented in this encounter [facility] 11-02-2022 Telephone encounter Note Name of caller: Heike Contact phone number: [phone] Relationship to Patient: patient Provider: Dr Hampton Practice: [facility] [place] Chief Complaint/Reason for Call: Pt states [facility] pharmacy advised him they do not have any refills for his venlafaxine 75 mg. Per the chart an rx was sent 09/08/22 with 3 refills. Pt states he is out of the rx and cannot get a refill. Please advise. Best time of day caller can be reached: any Patient advised that office/PCP has 24-48 business hours to return their call: No [facility] Evaluation note No assessment inform ation available [facility] Work Phone: Evaluation note Diagnosis Type 2 [...] diagnosis of hypertension documented in this encounter [facility]* Diagnosis Type 2 diabetes mellitus without complication, without long-term current use of insulin (CMS/HCC) (HCC) documented in this encounter [facility]* Diagnosis Flu vaccine need- Primary Essential hypertension Unspecified essential hypertension Hypercholesterolemia Pure hypercholesterolemia Cerebrovascular accident (CVA), unspecified mechanism (HCC) Type 2 diabetes mellitus without complication, without long-term current use of insulin (CMS/HCC) (HCC) Anxiety and depression documented in this encounter [facility]* Diagnosis Encounter for subsequent [...] Bilateral carotid bruits [facility] Diagnosis Type 2 diabetes mellitus [...] HealthEvaluation note* Diagnosis PAD (peripheral artery disease) ([facility]) Unspecified peripheral vascular disease [facility] Diagnosis Essential hypertension Unspecified essential hypertension [facility] Diagnosis Type 2 diabetes mellitus without complication, without long-term current use of insulin (CMS/HCC) ([facility])- Primary Essential hypertension Unspecified essential hypertension Hypercholesterolemia Pure hypercholesterolemia Anxiety and depression Cerebrovascular accident (CVA), unspecified mechanism ([facility]) Chews tobacco [facility] Diagnosis Hypercholesterolemia Pure hypercholesterolemia documented [facility] Diagnosis Ectopic heartbeats- Primary Unspecified premature beats Bilateral carotid bruits Anxiety and depression Hypercholesterolemia Pure hypercholesterolemia Chews tobacco Type 2 diabetes mellitus without complication, without long-term current use of insulin (CMS/HCC) ([facility]) Colonoscopy refused Poor dentition documented in this [...] Hypercholesterolemia Pure hypercholesterolemia documented in this encounter [facility]* Diagnosis Type 2 diabetes [...] Aortic heart murmur documented in this encounter [facility]* Diagnosis Type 2 diabetes [...] complication, without long-term current use of insulin ([facility]/HCC) (HCC) documented in this encounter [facility]* Diagnosis Type 2 diabetes [...] of insulin (HCC) documented in this encounter [facility]* Diagnosis Type 2 diabetes [...] Lumbar radiculopathy, chronic documented in this encounter [facility]* Diagnosis Type 2 diabetes [...] and respiratory abnormality documented in this encounter [facility]* Diagnosis Type 2 diabetes [...] coronary artery disease documented in this encounter [facility]* Diagnosis Type 2 diabetes [...] respiratory abnormality documented in this encounter [facility] Discharge instructions Additional Instructions Follow preprinted instructions from your surgeon's office. Implant Used?: Yes [facility] Work Phone: Summary Purpose Family History No Family History Records FoundNo Family History Records FoundNo Family History Records Found Advance Directives Advance Directive Response Recorded Date/ Time Living Will No October 08 022 8:57am Power of Firer Locomotive Crane No October 08, 2022 8:57am Chief Complaint and Reason for Visit Chief Complaint ORIF LATERAL MALLEOL EUS, POSSIBLE SYNDESMOSIS REPA Reason for Referral Specialty Diagnoses / Procedures Referred By Contac t Referred To Contact Cardiology Diagnoses Bilateral carotid bruits Procedures Vascular US carotid artery duplex bilateral Paulo Jimenez, DO [address] [place] [address] Referral ID Status Reason Start Date Expiration Date V isits Requested Visits Authorized [id number] Pending Review 01/06/2024 01/05/2025 1 1 Specialty Diagnoses / Procedures Referred By Contac t Referred To Contact Cardiology Diagnoses PAD (peripheral artery disease) (HCC) Procedures Vascular US lower extremity arterial duplex bilateral with TAJ BarbaraPaulo, DO [address] [place] [address] Referral ID Status Reason Start Date Expiration Date V isits Requested Visits Authorized [id number] Authorized 05/08/2024 05/08/2025 1 1 Referral ID Status Reason Start Date Expiration Date V isits Requested Visits Authorized [id number] Authorized 05/08/2024 05/08/2025 1 1 Referral ID Status Reason Start Date Expiration Date Visits Re quested Visits Authorized [id number] Closed 05/08/2024 05/08/2025 1 1 Specialty Diagnoses / Procedures Referred By Contac t Referred To Contact Cardiology Diagnoses PAD (peripheral artery disease) (HCC) Procedures Vascular US lower extremity arterial PVR Vascular US lower extremity arterial duplex bilateral with TAJ BarbaraPaulo, DO [address] [place] [address] Referral ID Status Reason Start Date Expiration Date Visits Re quested Visits Authorized [id number] Closed 05/08/2024 05/08/2025 1 1 Specialty Diagnoses / Procedures Referred By Contac t Referred To Contact Cardiology Diagnoses PVC's (premature ventricular contractions) Procedures Cardiac holter monitor (24 hours) Wesley Hampton, [address] [place] [address] Referral ID Status Reason Start Date Expiration Date V isits Requested Visits Authorized [id number] Authorized 01/11/2023 07/10/2023 1 1 Additional Source Comments (unrecognized sect ion and content) No Status Records FoundNo Status Records FoundNo Status Records Found INFORMATION SOURCE (unrecogn ized section and content) DATE CREATED AUTHOR 10/04/2022 [facility] DATE CREATED AUTHOR AUTHOR'S ORGANIZ ATION 12/25/2022 [facility] DATE CREATED AUTHOR AUTHOR'S ORGANIZ ATION 09/19/2025 [facility] Reason for Visit [...] Jimenez DO [address] [place] [address] Referral ID Status Reason Start Date Expiration Date Visits Re quested Visits Authorized [id number] Closed 05/08/2024 05/08/2025 1 1 Specialty Diagnoses / Procedures Referred By Yobani t Referred To Contact Cardiology Diagnoses PAD (peripheral artery disease) ([facility]) Procedures Vascular US lower extremity arterial PVR Vascular US lower extremity arterial duplex bilateral with TAJ Paulo Jimenez DO [address] [place] [address] Referral ID Status Reason Start Date Expiration Date Visits Re quested Visits Authorized [id number] Closed 05/08/2024 05/08/2025 1 1 Reason Onset Date Comments Med Refill 08/28/2024 Reason Onset Date Comments Other 08/08/2024 fyi Reason Comments Follow-up Med check Flu Vaccine Reason Comments Follow-up 4 month med check Reason Onset Date Comments Orders 01/11/2023 Holter Monitor Reason Onset Date Comments Medication Problem 11/02/2022 Reason Onset Date Comments Med Refill 04/20/2025 glimepiride ([place]) 4 MG tablet Reason Comments Follow-up Med checkPatient is agreeable to have flu vaccine in the office Reason Onset Date Comments Referral 09/18/2025 MG-Cardiology / [facility] Care Teams (unrecognized sec tion and content) State Wildlife Officer Relationship Specialty Start Date End Date Doug Baker PA-C [address], [place] [phone] PCP - General Physician Shoemaking Finisher 04/28/23 State Wildlife Officer Relationship Specialty Start Date End Date Barbara Paulo Mueller, DO [address] [place], [place] [phone] PCP - General Family Medicine 05/03/23 State Wildlife Officer Relationship Specialty Start Date End Date Barbara Paulo Mueller DO [address] [place], [place] [phone] PCP - General Family Medicine 05/03/23 State Wildlife Officer Relationship Specialty Start Date End Date Barbara Paulo Mueller DO [address] [place], [place] [phone] PCP - General Family Medicine 05/03/23 State Wildlife Officer Relationship Specialty Start Date End Date Paulo Jimenez Ervin DO [address] [place] [phone] PCP - General Family Medicine 05/03/23 State Wildlife Officer Relationship Specialty Start Date End Date BarbaraPaulo, DO [address] [place] [address] PCP - General Family Medicine 05/03/23 State Wildlife Officer Relationship Specialty Start Date End Date Barbara Paulo Mueller, DO [address] [place] [address] PCP - General Family Medicine 05/03/23 State Wildlife Officer Relationship Specialty Start Date End Date Barbara Paulo Mueller, DO [address] [place] [address] PCP - General Family Medicine 05/03/23 State Wildlife Officer Relationship Specialty Start Date End Date Barbara Paulo Mueller, DO [address] [place] [address] PCP - General Family Medicine 05/03/23 State Wildlife Officer Relationship Specialty Start Date End Date BarbaraPaulo, DO [address] [place] [address] PCP - General Family Medicine 05/03/23 State Wildlife Officer Relationship Specialty Start Date End Date Barbara Paulo Mueller, DO [address] [place] [address] PCP - General Family Medicine 05/03/23 State Wildlife Officer Relationship Specialty Start Date End Date Barbara Paulo Mueller, DO [address] [place] [address] PCP - General Family Medicine 05/03/23 State Wildlife Officer Relationship Specialty Start Date End Date Paulo Jimenez, DO [address] [place] [phone] PCP - General Family Medicine 05/03/23 State Wildlife Officer Relationship Specialty Start Date End Date Paulo Jimenez, [address] [place] [address] PCP - General Family Medicine 05/03/23 State Wildlife Officer Relationship Specialty Start Date End Date Paulo Jimenez, [address] [place] [address] PCP - General Family Medicine 05/03/23 State Wildlife Officer Relationship Specialty Start Date End Date Paulo Jimenez, [address] [place] [phone] PCP - General Family Medicine 05/03/23 State Wildlife Officer Relationship Specialty Start Date End Date Paulo Jimenez, [address] [place] [phone] PCP - General Family Medicine 05/03/23 State Wildlife Officer Relationship Specialty Start Date End Date Wesley Hampton DO [address] [place] [phone] PCP - General 06/12/15 State Wildlife Officer Relationship Specialty Start Date End Date Wesley Hampton DO [facility] [place], [place] [phone] PCP - General 06/12/15 State Wildlife Officer Relationship Specialty Start Date End Date Wesley Hampton DO [facility] [place] [address] PCP - General 06/12/15 State Wildlife Officer Relationship Specialty Start Date End Date BarbaraPaulo, DO [address] [place] [phone] PCP - General Family Medicine 05/03/23 State Wildlife Officer Relationship Specialty Start Date End Date BarbaraPaulo, DO [address] [place] [phone] PCP - General Family Medicine 05/03/23 State Wildlife Officer Relationship Specialty Start Date End Date Barbara Paulo Mueller, DO [address] [place] [phone] PCP - General Family Medicine 05/03/23 State Wildlife Officer Relationship Specialty Start Date End Date Barbara Paulo Mueller, DO [address] [place] [phone] PCP - General Family Medicine 05/03/23 State Wildlife Officer Relationship Specialty Start Date End Date BarbaraPaulo, DO [address] [place] [phone] PCP - General Family Medicine 05/03/23 State Wildlife Officer Relationship Specialty Start Date End Date BarbaraPaulo, DO [address] [place] [phone] PCP - General Family Medicine 05/03/23 State Wildlife Officer Relationship Specialty Start Date End Date Barbara Paulo Mueller, DO [address] [place] [phone] PCP - General Family Medicine 05/03/23 State Wildlife Officer Relationship Specialty Start Date End Date Paulo Jimenez DO [address] [facility] [address] [place] [address] PCP - General Family Medicine [...] BE BASED ON THE PRIMARY CLINICAL RECORDS. [facility]. provides no warranty or guarantee of the accuracy or completeness of information in this document.
--- NOTE | 2025-11-25 03:06 | HP.PCM.HOS_ITS ---
[facility] - [facility] Date of Admission: 11/25/25 Chief Complaint: Shortness of breath and leg swelling [facility] Narrative HEIKE WEST, is a 80 M who presents 2-week history of progressively worsening shortness of breath and lower extremity swelling. Patient has a medical history of diabetes, hypertension and prior CVA who has been feeling increasing shortness of breath on minimal exertion, orthopnea and progressive lower extremity swelling that started 2 weeks ago. Today daughter found the patient on the floor unable to breathe. Patient has no history of heart disease and not on diuretics. They think he might have had a heart attack in the past, and his EKG shows Q waves in inferior leads. No cough or sputum production. No fever or sick contact. In the ED he was hypoxemic and very tachypneic and required BiPAP. Chest x-ray showed large right pleural effusion and pulmonary edema in addition to extreme lower extremity swelling with blistering and weeping fluid, he received a dose of Bumex IV 1 mg with only 200 mL urine output after 1 hour and gave him minimal relief of symptoms. Slightly hypotensive systolic in the 100s WBC 6.5. Lactic acid 6.3 with anion gap of 20. pH 7.34, pCO2 28 and pO2 was 109 on BiPAP 40%. Creatinine 2.12 no recent baseline. Troponin 202 then 2 hours 209. EKG was possibly atrial flutter with ventricular rate of 100 and multiple PVCs. Q waves in 3 and aVF, ST appears elevated in lead III but the J-point was at isoelectric line. Patient will be admitted to ICU with acute hypoxemic failure due to acute pulmonary edema from acute decompensated heart failure, possibly from acute coronary syndrome. Cannot rule out pneumonia as well [facility] Medical History (Updated 11/25/25 @ 03:[address] Beverly Lewis MD) Wears glasses Loose, teeth Diabetes Ambulates with cane High cholesterol Hypertension Restless legs Stroke/cerebrovascular accident Chews tobacco Non-smoker History of edema History of irregular heartbeat Home Medications ?Medication ?Instructions ?Recorded ?Last Taken ?Type atorvastatin 20 mg tablet 20 mg PO DAILY 10/08/22 Unkn own History clopidogrel 75 mg tablet 1 mg PO DAILY 10/08/22 Unkno wn History empagliflozin 25 mg tablet 25 mg PO DAILY 10/08/22 Unk nown History (Jardiance) glimepiride 4 mg tablet 4 mg PO BID 10/08/22 Unknown History lisinopril 10 mg tablet 10 mg PO DAILY 10/08/2209/29 08:00 History mecobalamin (vitamin B12) 1,000 1,000 mcg PO DAILY 09/19 Unknown History mcg chewable tablet (B12 Active) metformin 1,000 mg tablet 1,000 mg PO BID 10/08/22 Unk nown History pioglitazone 45 mg tablet (Actos) 45 mg PO DAILY 10/08 Unknown History venlafaxine 75 mg capsule,extended 75 mg PO DAILY 09/29 Unknown History release 24 hr amlodipine 5 mg tablet 5 mg PO DAILY 11/24/25 Unkno wn History Allergy/AdvReac Type Severity Reaction Status Date / Time No Known Allergies Allergy Verified 11/24/25 22:52 Surgical History History of hernia repair Social History Smoking Status: Never smoker ROS Constitutional Constitutional: Reports change in weight; Denies anorexia Eyes Eyes: Denies blurry vision Cardiovascular Cardiovascular: Reports edema, orthopnea and paroxysmal nocturnal dyspnea; Denies chest pain Respiratory/Chest Respiratory/Chest: Denies cough Gastrointestinal Gastrointestinal: Denies abdominal pain or coffee ground emesis Genitourinary Genitourinary: Denies difficulty urinating Musculoskeletal Musculoskeletal: Denies arthralgias Neurologic Neurologic: Denies abnormal gait or abnormal speech Psychiatric Psychiatric: Denies anxiety Endocrine Endocrinology: Reports change in body appearance Patient's Goals Of Care . What would you like to achieve or improve as a result of your hospital stay?: G et better Vital Signs Vital Signs Vital Signs: 11/24/25 22:46 11/24/25 22:55 11/24/25 22:55 Temperature 98 F Temperature Source Oral Pulse Rate 64 Respiratory Rate 26 H Respiratory Effort Short of Breath Labored Respiratory Depth Shallow Respiratory Pattern Tachypnea Blood Pressure 101/68 Blood Pressure Mean 79 Pulse Ox 97 Oxygen Delivery Method Bi-pap Bi-pap Bi-pap Fraction of Inspired Oxygen (FIO2) 40 11/24/25 23:00 11/24/25 23:36 11/24/25 23:46 Temperature 98.1 F Temperature Source Oral Pulse Rate 104 H 102 H 104 H Respiratory Rate 22 H 23 H 22 H Respiratory Effort Respiratory Depth Respiratory Pattern Tachypnea Blood Pressure 95/57 L Blood Pressure Mean 69 Pulse Ox 98 96 91 Oxygen Delivery Method Bi-pap Fraction of Inspired Oxygen (FIO2) 40 25 25 11/24/25 23:56 11/25/25 00:05 11/25/25 01:00 Temperature 98.1 F 98.2 F Temperature Source Temporal Temporal Pulse Rate 102 H 103 H 104 H Respiratory Rate 21 H 21 H 22 H Respiratory Effort Respiratory Depth Respiratory Pattern Blood Pressure 95/57 L 112/71 106/72 Blood Pressure Mean 69 84 83 Pulse Ox 90 92 99 Oxygen Delivery Method Bi-pap Bi-pap Room Air Fraction of Inspired Oxygen (FIO2) 25 25 25 11/25/25 02:07 Temperature 98.1 F Temperature Source Pulse Rate 102 H Respiratory Rate 22 H Respiratory Effort Respiratory Depth Respiratory Pattern Blood Pressure 108/50 L Blood Pressure Mean 69 Pulse Ox 100 Oxygen Delivery Method Fraction of Inspired Oxygen (FIO2) Weight Weight: 114 kg Body Mass Index (BMI) 39.3 Physical Exam Const alert and oriented x3 Constitutional Narrative: In severe respiratory distress and he cannot complete sentences Eyes EOMs intact bilaterally Resp Resp Narrative: Crackles and diminished breath sounds right side Cardio regular rate; Negative for regular rhythm GI GI Narrative: Obese abdomen Extremity Extremity Narrative: Massive lower extremity edema with blistering and clear fluid weeping Neuro moves all extremities Results Lab / Micro Data 11/24/25 23:00 11/24/25 23:00 Labs: Laboratory Results - last 24 hr 11/24/25 23:00: WBC 6.5, RBC 3.84 L, Hgb 11.1 L, Hct 35.6 L, MCV 92.7, MCH 28.9, MCHC 31.2 L, RDW Std Deviation 55.4 H, RDW Coeff of [place] 16.7 H, Plt Count 240, MPV 11.8, Immature Gran % (Auto) 1.200 H, Neut % (Auto) 79.6 H, Lymph % (Auto) 11.2 L, [place] % (Auto) 7.2, Eos % (Auto) 0.3, Baso % (Auto) 0.5, Absolute Neuts (auto) 5.2, Absolute Lymphs (auto) 0.73 L, Nucleated RBC % 0, PT 14.6, INR 1.1, APTT 28.0, Sodium 139, Potassium 4.9, Chloride 107 H, Carbon Dioxide 12.7 L, A nion Gap 20 H, BUN 62 H, Creatinine 2.12 H, Estim Creat Clear Calc 34.63 L, Est GFR (MDRD) Non-Af 31 L, BUN/Creatinine Ratio 29.1 H, Glucose 289 H, Lactic Acid 6.3 H*, Calcium 8.9, Total Bilirubin 0.34, AST 19, ALT 17, Alkaline Phosphatase 91, Troponin T High Sens 202 H*, NT pro BNP II 8947 H, Total Protein 6.3, Albumin 3.9, Globulin 2.4, Albumin/Globulin Ratio 1.6 11/24/25 23:43: Urine Color Yellow, Urine Clarity Clear, Urine pH 5.0, Ur Specific [place] 1.015, Urine Protein 100 H, Urine Glucose (UA) 1000 H, Urine Ketones Negative, Urine Occult Blood 25 H, Urine Nitrite Negative, Urine Bilirubin Negative, Urine Urobilinogen Normal, Ur Leukocyte Esterase Negative, Urine RBC 0-5 SEEN, Urine WBC 0-5 SEEN, Ur Squamous Epith Cells 0 SEEN, Urine Bacteria 0 SEEN, Urine Mucus 0 SEEN 11/25/25 01:21: Troponin T Hi Sens 2 Hr 209 H* Micro: Microbiology 11/24/25 23:43 Mucosa - Nasopharyngeal SARS-CoV-2, Influenza & RSV (PCR) - Final ABG Data ABG results: ABG 11/24/25 23:25 Specimen Type ART Sample Site L Radial pH 7.34 L Bicarbonate Actual 15.4 L Total CO2 16 Base Excess -10 L O2 Saturation 98 O2 % 40.0 ABG pCO2 28.3 L ABG pO2 109 H Mitesh Test Negative Respiration Rate 12 O2 Delivery Device BiPAP Vent Mode Not entered POC PEEP 8 Imaging Radiology Impression Chest X-Ray 11/24/25 23:06 IMPRESSION: Hypoventilation. Right lung base airspace opacity. Probable small-sized right pleural effusion. Reading Location: [facility] Assessment & Plan Assessment/Plan (1) Acute hypoxemic respiratory failure: (2) Pleural effusion, right: (3) Acute decompensated heart failure: (4) Right lower lobe pneumonia: QUALIFIERS: Pneumonia type: due to unspecified organism Qualified Code(s): J18.9 - Pneumonia, unspecified organism (5) Non-STEMI (non-ST elevated myocardial infarction): (6) Lactic acidosis: (7) PHILLIP (acute kidney injury): (8) Diabetes: QUALIFIERS: Diabetes mellitus type: type 2 Diabetes mellitus terminologist insulin use: without terminologist use Diabetes mellitus complication status: without complication Qualified Code(s): E11.9 - Type 2 diabetes mellitus without complications PLAN: Plan Admission to ICU BiPAP as needed, keep at bedside, he is taken off BiPAP but appears to have increased work of breathing. Was not requiring much oxygen 2 mg IV Bumex as he did not respond to 1 mg, assess response and repeat as needed Aspirin and Plavix (home medications). Start heparin. Statin. Trend troponin and follow EKG 2D echo. Cardiology consultation Can be sepsis from pneumonia but IV fluids resuscitation will be harmful. Blood cultures and broad-spectrum antibiotics were started immediately IV vancomycin, cefepime and azithromycin. Sputum culture and nasal MRSA swab, urine pneumococcus and Legionella antigens. UA clear Lactic acid 6.3 from prolonged hypoxemia while on metformin. Hold metformin and repeat lactic acid No evidence of shock (well perfusing except for PHILLIP, no pressors) PHILLIP can be from sepsis or cardiorenal No baseline creatinine, in 2021 it was 1.1. Insulin for diabetes Patient was told to stop pioglitazone which can cause CHF and fluid overload PPI for stress ulcer prophylaxis Sepsis Attestation Sepsis Attestation: Agree w/Sepsis Possible Source of Sepsis: Pulmonary Sepsis Organ Dysfunction Criteria Present: SBP < 90 mmHg or MAP < 65 mmHg, Acute Respiratory Failure (New need for BiPAP/CPAP or MV), Creatinine > 2.0 mg/dL, Lactic Acid > 2 mmol/L, Serum CO2 < 20 mmol/L (on BMP) and PaO2/FiO2 ratio < 300 Charges/Coding Visit Charges Inpatient E&M: 57344 Init Hosp L3
[2025-11-25 03:08] LABS: Reflex Lactate? Y
[2025-11-25 03:23] LABS: Hematocrit 35.5 % (40-54); Hemoglobin 11.3 g/dL (13.0-16.5); Immature Granulocytes Count 0.060 X10^3/uL (0.0-0.0); Mean Corp Hgb Conc 31.8 g/dL (32-36); Mean Corpuscular Volume 92.7 fL (80-94); Mean Platelet Vol. 11.8 fl (6.2-12.0); NRBC Flagged by Analyzer 0 % (0-5); POSITIVE DIFFERENTIAL YES; Platelet Count 230 K/mm3 (150-450); RBC Distribution Width CV 16.6 % (11.6-14.6); RBC Distribution Width SD 55.9 fl (35.1-43.9); Red Blood Count 3.83 M/mm3 (4.6-6.2); White Blood Count 10.4 K/mm3 (4.4-11.0)
[2025-11-25 03:35] LABS: Prothrombin Time (Protime)PT. 15.3 SECONDS (11.7-14.9)
[2025-11-25 03:36] LABS: Partial Thromboplast Time 34.8 Seconds (24.1-36.2)
[2025-11-25] MEDS: Heparin Injection (Vial) 5,000 UNIT/ML VIAL 4000 UNIT IV (03:41)
[2025-11-25] MEDS: 0.9% Saline Lock 10 ML Syringe IV (03:41)
[2025-11-25 03:43] LABS: Anion Gap 15 (7-18); BUN 61 mg/dL (4-19); BUN/Creat Ratio 27.9 RATIO (10-20); Calcium,Total 9.0 mg/dL (7.6-11.0); Carbon Dioxide 17.6 mmol/L (20.0-29.0); Chloride 108 mmol/L (96-106); Estimated Creatinine Clearance 33.36 ml/min (50-250); Glucose 238 mg/dL (70-99); Magnesium 2.2 mg/dL (1.5-2.2); Potassium 5.2 mmol/L (3.5-5.1)
[2025-11-25] MEDS: HEPARIN/D5w 25,000 UNITS 25,000 UNITS/250 ML IV.SOLN. 10 UNITS CONT INF (03:48)
[2025-11-25] MEDS: Cefepime HCl 2 GM in 0.9% Normal Saline (100mL MB+) 100 ML IV (03:51)
[2025-11-25] MEDS: CHLORHEXIDINE GLUC 2% CLOTH 1 EACH TOWELETTE TOPICAL (03:59)
[2025-11-25] MEDS: Vancomycin HCl 1,750 MG in 0.9% Normal Saline (500mL Bag) 500 ML 250 MG IV (04:32)
--- NOTE | 2025-11-25 05:44 | PCM.RX.CS ---
Consult Antibiotic Management Pharmacy has been consulted to manage selected antibiotic: Vancomycin Type of Intervention Type of Consult: New start Labs Labs: Sodium 140 mmol/L (135-145) 11/25/25 03:10 Potassium 5.2 mmol/L (3.5-5.1) H 11/25/25 03:10 Chloride 108 mmol/L (96-106) H 11/25/25 03:10 Carbon Dioxide 17.6 mmol/L (20.0-29.0) L 11/25/25 03:10 Anion Gap 15 (7-18) 11/25/25 03:10 BUN 61 mg/dL (4-19) H 11/25/25 03:10 Creatinine 2.20 mg/dL (0.70-1.20) H 11/25/25 03:10 Est GFR (MDRD) Non-Af 30 (>60) L 11/25/25 03:10 BUN/Creatinine Ratio 27.9 RATIO (10-20) H 11/25/25 03:10 Glucose 238 mg/dL (70-99) H 11/25/25 03:10 Microbiology Microbiology: Microbiology 11/25/25 03:05 Nasal Secretion MRSA (PCR) - Final 11/25/25 00:00 Urine Catheter - Walton Legionella Antigen - Final 11/25/25 00:00 Urine Catheter - [place] Streptococcus pneumoniae Antigen (M - Final 11/24/25 23:43 Mucosa - Nasopharyngeal SARS-CoV-2, Influenza & RSV (PCR) - Final Dosing Weight Weight used for dosin.9 kg Estimated Creatinine Clearance Estimated Creatinine Clearance: 33.36 Goal Trough Goal Trough: 10-15 mcg/mL Pharmacy Plan for Drug Dosing Pharmacy Plan for Drug Dosing: Pharmacy Service will continue to monitor and adjust dosing as required. INITIAL DOSE 1750MG GIVEN 11/25 @ 0432. START 1250MG Q24H AND DRAW TROUGH PRIOR TO 3RD DOSE Follow-Up Labs Follow-Up Labs: Trough: Vancomycin Date/Time Labs Ordered Labs to be done on [date and time ordered]: 11/27 @ 0400
--- NOTE | 2025-11-25 08:30 | NURSING ---
pt c/o significant pain from cath, significant urine leaking around the mederos, palpation revealed lump in the middle of penile shaft which reduced as mederos was removed. there is significant clotting noted. pt indicates immediate relief from pain.
--- NOTE | 2025-11-25 09:11 | NURSING ---
0852 This RN present in pt room, prep for mederos insertion, pt into VT, no pulse 0853 CPR begun, code blue called. 0857 ROSC achieved, pt nodding/speaking approp.
--- NOTE | 2025-11-25 09:16 | PCM.CODE.SUM ---
Shawna Obando Report Code Jerry Summary Code Jerry Summary: SHAWNA OBANDO was called at 0853 for cardiac arrest and seizure. He is a patient is here for cardiac workup given heart failure and elevated troponins. He was noticed at 0852 to go into V. tach and then a minute later he went into V-fib and arrested and had seizure-like activity. He received 1 round of CPR with no medications and had recovery of his pulse. Heart rate and blood pressures normalized and he was started on amiodarone with a bolus followed by drip. Cardiology was notified of the consult for evaluation General: Alert, Cooperative, moderate distress HEENT: Atraumatic, PERRLA, EOMI, Normocephalic Oral: Moist Mucosa Neck: Supple, No JVD Lungs: Diminished, Normal air movement, No rhonchi, No wheeze, rales, tachypneic Cardiovascular: Tachycardic, Normal S1, Normal S2, No murmurs Abdomen: Soft, Non Tender, Non-Distended, No Hepato-splenomegaly Extremities: Edema, Capillary Refill Less than 3 Seconds Skin: No rashes, No breakdown Musculoskeletal: No Tenderness to Palpation of Joints or Extremities Neurological: No focal neurological deficits, moves all extremities Psych/Mental Status: Flat 1. Sepsis and acute hypoxic respiratory failure secondary to pneumonia with heart failure exacerbation unknown type in the setting of a non-STEMI/V-fib/V. tach arrest ? ABG on admission with a pH of 7.34 bicarb of 15 and a pCO2 of 28.3 ? He did receive several doses of Bumex in the emergency room with slight improvement in his respiratory status ? Continue with broad-spectrum antibiotics ? Cultures are pending ? 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 Will continue with an amiodarone bolus and then amiodarone drip ? Appreciate cardiology's assistance plan for possible cardiac catheterization today ? Continue with the heparin drip ? Renal function is stable, given his heart failure we will hold off on IV fluid resuscitation, lactic acid has improved 2. Essential HTN/HLD ? Will hold his Norvasc and his lisinopril secondary to his cardiac arrest and PHILLIP ? Will continue with amiodarone 3. DM2 ? Insulin ? Accu-Cheks ? Will monitor and make adjustments as necessary 4. Anxiety/depression ? Stable ? Will hold his Effexor DVT: Heparin drip 37 minutes critical care time was spent on direct patient care, including documentation as well as chart review and collaboration with colleagues Procedures Hospitalists Procedures: 35992 Critical Care 1st Hr
[2025-11-25] MEDS: Amiodarone 150 MG in Dextrose 5%-Water (100mL Bag) 100 ML 600 MG IV BOLUS (09:18)
--- NOTE | 2025-11-25 09:21 | EKG12_ITS ---
Test Reason : EKG CHANGES Blood Pressure : */* mmHG Vent. Rate : 95 BPM Atrial Rate : 300 BPM P-R Int : * ms QRS Dur : 110 ms QT Int : 322 ms P-R-T Axes : 42 55 132 degrees QTcB Int : 404 ms Unclear Atrial Rhythm; Possible Afib vs Atrial flutter with variable A-V block with premature ventricular or aberrantly conducted complexes Low voltage QRS ST & T wave abnormality, consider anterior ischemia Abnormal ECG When compared with ECG of 24-Nov-2025 23:22, MANUAL COMPARISON REQUIRED DATA IS UNCONFIRMED Confirmed by Nitish Lawson ([id number]), book editor EVELIA PIERRE ([id number]) on 11/30/2025 10:25:58 AM Referred By: Beverly Lewis Confirmed By: Nitish Lawson
--- NOTE | 2025-11-25 09:52 | PCMCONS.TICU ---
HPI Consult Data Date of Consult: 11/25/25 HPI Narrative Reason for Consultation: acute respiratory failure, CHF, sp cardiac arrest HPI Narrative: 80Y M DM, HTN, prior CVA who presented with a 1-2 week Hx of progressively worsening SOB & LE edema. He was who presents 2-week history of progressively worsening shortness of breath and lower extremity swelling. Pt was found on the floor of his house today with sats in the 40s. In the ED he was placed on NIV. CXR with a large right pleural effusion and pulmonary edema. WBC 6.5. Lactic acid 6.3 with anion gap of 20. pH 7.34, pCO2 28 and pO2 was 109 on BiPAP 40%. Creatinine 2.12- baseline ~1.8-1.9. Troponin 202 --> 209. EKG with ?atrial flutter with ventricular rate of 100 and multiple PVCs. Q waves in 3 and aVF, ST appears elevated in lead III but the J-point was at isoelectric line. Pt was admitted to ICU for CHF exacerbation and possible NSTEMI with ?RLL PNA & PHILLIP. Early this AM he developed VT --> VF arrest. Chest compressions done for 2 min with ROSC. Pt had seizure episode during CPR. Post-arrest he was awake/alert and had no obvious neuro deficits. Cardiology consulted with plans to cont amiodarone gtt (Pt received 150 mg bolus received during CPR) & monitor closely. Critical care consulted for on-going assistance in management. [facility] Medical History (Updated 11/25/25 @ 03:[address] Beverly Lewis MD) Wears glasses Loose, teeth Diabetes Ambulates with cane High cholesterol Hypertension Restless legs Stroke/cerebrovascular accident Chews tobacco Non-smoker History of edema History of irregular heartbeat Home Medications ?Medication ?Instructions ?Recorded ?Last Taken ?Type atorvastatin 20 mg tablet 20 mg PO DAILY 10/08/22 Unknown History clopidogrel 75 mg tablet 1 mg PO DAILY 10/08/22 Unknown History empagliflozin 25 mg tablet 25 mg PO DAILY 10/08/22 Unknown History (Jardiance) glimepiride 4 mg tablet 4 mg PO BID 10/08/22 Unknown History lisinopril 10 mg tablet 10 mg PO DAILY 10/08/22 10/14/22 08:00 History mecobalamin (vitamin B12) 1,000 1,000 mcg PO DAILY 10/08/22 Unknown History mcg chewable tablet (B12 Active) metformin 1,000 mg tablet 1,000 mg PO BID 10/08/22 Unknown History pioglitazone 45 mg tablet (Actos) 45 mg PO DAILY 10/08/22 Unknown History venlafaxine 75 mg capsule,extended 75 mg PO DAILY 10/08/22 Unknown History release 24 hr amlodipine 5 mg tablet 5 mg PO DAILY 11/24/25 Unknown History Allergy/AdvReac Type Severity Reaction Status Date / Time No Known Allergies Allergy Verified 11/24/25 22:52 Surgical History History of hernia repair Social History Smoking Status: Never smoker ROS ROS Narrative Full 12 point ROS completed and neg unless stated in HPI above. Objective Data Objective Data Vital Signs: Vital Signs Last response Temperature 36.8 C 11/25/25 04:00 Temperature Source Oral 11/25/25 04:00 Pulse Rate 93 11/25/25 09:30 Respiratory Rate 20 H 11/25/25 09:30 Respiratory Effort Labored 11/25/25 04:00 Respiratory Depth Normal 11/25/25 04:00 Respiratory Pattern Normal 11/25/25 04:00 Blood Pressure 97/64 11/25/25 09:30 Blood Pressure Mean 75 11/25/25 09:30 Blood Pressure Source Monitor 11/25/25 09:30 Blood Pressure Position Supine 11/25/25 09:30 Blood Pressure Location Left Arm 11/25/25 09:30 Pulse Ox 98 11/25/25 09:30 Oxygen Delivery Method Bi-pap 11/25/25 09:30 Oxygen Flow Rate (L/min) 11/25/25 09:30 Fraction of Inspired Oxygen (FIO2) 11/25/25 07:00 I&O: I&O Last 24 Hours 11/24/25 11/24/25 11/25/25 11:59 23:59 11:59 Intake Total 0 / 0 635 / 635 Output Total 750 / 750 Balance 0 / 0 -115 / -115 I&O: Total Stay 11/24/25 22:44 thru 11/25/25 06:45 Intake Total 635 Output Total 750 Balance -115 Current Meds Ordered / Administered: Current meds ordered / Administered Generic Name Dose Route Start Last Admin Trade Name Naborq PRN Reason Stop Dose Admin Aspirin 81 mg 11/25/25 08:00 Aspirin E.C. 81 Mg Tablet PO BREAKFAST JAVIER Atorvastatin Calcium 20 mg 11/25/25 22:00 Atorvastatin Calcium 20 Mg Tablet PO QHS JAVIER Chlorhexidine Gluconate 1 each 11/25/25 10:00 11/25/25 03:59 Chlorhexidine Gluc 2% Cloth 1 Each Towelette TOPICAL 1 each DAILY JAVIER Administration Clopidogrel Bisulfate 1 mg 11/25/25 10:00 Clopidogrel Bisulfate 75 Mg Tablet PO DAILY JAVIER Glucagon 1 mg 11/25/25 03:27 Glucagon 1 Mg/Ml Syringe IM X1 PRN Hypoglycemia Protocol Heparin Sodium (Porcine) 0 unit 11/25/25 02:49 Heparin Nomogram Adjustment 5,000 Unit/Ml Vial IV UD PRN Dose Adjustment Protocol Pantoprazole Sodium 40 mg/ 100 mls @ 300 mls/hr 11/25/25 10:00 Sodium Chloride IV Q24 JAVIER Heparin Sodium/Dextrose 25,000 units in 250 mls @ 10 mls/hr 11/25/25 02:49 11/25/25 03:48 CONT INF 10 ml/hr .Q25H JAVIER 10 mls/hr Protocol Administration Vancomycin IV-PHARMACY TO DOSE 500 mls @ 250 mls/hr 11/25/25 02:49 1 each/ Sodium Chloride IV X1 PRN Rx to Dose Protocol Cefepime HCl 2 gm/ Sodium 100 mls @ 200 mls/hr 11/25/25 02:49 11/25/25 04:33 Chloride IV Infused Q12 JAVIER Infusion Dextrose 250 mls @ 0 mls/hr 11/25/25 03:27 Dextrose 10%-Water IV .Q0M PRN HYPOGLYCEMIA Protocol As Directed Sodium Chloride 250 mls @ 15 mls/hr 11/25/25 03:52 IV .[id number] PRN Saline Flush Sodium Chloride 250 mls @ 15 mls/hr 11/25/25 03:52 IV .[id number] PRN Additional IVPB Infusion Vancomycin HCl 1,250 mg/ 275 mls @ 167 mls/hr 11/26/25 04:30 Sodium Chloride IV Q24H JAVIER Amiodarone HCl 360 mg/ 200 mls @ 33.333 mls/hr 11/25/25 09:00 Dextrose CONT INF 11/25/25 14:59 .Q6H JAVIER 1 MG/MIN Amiodarone HCl 360 mg/ 200 mls @ 16.667 mls/hr 11/25/25 15:00 Dextrose CONT INF 11/26/25 08:59 .Q12H JAVIER 0.5 MG/MIN Insulin Human Lispro 0 unit 11/25/25 06:00 11/25/25 06:11 Insulin Lispro 100 Unit/Ml Insuln.Pen SC 1 u Q6 JAVIER Administration Protocol Ondansetron HCl 4 mg 11/25/25 02:49 Ondansetron 4 Mg/2 Ml Vial IV Q8H PRN PRN NAUSEA/VOMITING Senna/Docusate Sodium 2 tablet 11/25/25 02:49 Senna/Docusate Sodium 1 Tablet PO BID PRN PRN Constipation Sodium Chloride 10 - 40 ml 11/25/25 02:51 0.9 % Nacl (Sterile) Posiflush 10 Ml IV UD PRN Port access or dressing change Sodium Chloride 10 - 40 ml 11/25/25 02:51 11/25/25 03:41 0.9% Saline Lock 10 Ml Syringe IV 20 ml UD PRN Administration Midline Flush Sodium Chloride 10 - 40 ml 11/25/25 02:51 0.9% Saline Lock 10 Ml Syringe IV UD PRN SALINE FLUSH Sodium Chloride 10 - 40 ml 11/25/25 03:52 0.9% Saline Lock 10 Ml Syringe IV UD PRN SALINE FLUSH Vancomycin Protocol 1 lab 11/27/25 03:00 Vancomycin Trough/Random Due 11/27/25 05:00 DAILY [facility] Lab / Micro Data 11/25/25 10:10 11/25/25 03:10 Labs: Laboratory Results - last 24 hr 11/24/25 23:00: WBC 6.5, RBC 3.84 L, Hgb 11.1 L, Hct 35.6 L, MCV 92.7, MCH 28.9, MCHC 31.2 L, RDW Std Deviation 55.4 H, RDW Coeff of Dawood 16.7 H, Plt Count 240, MPV 11.8, Immature Gran % (Auto) 1.200 H, Neut % (Auto) 79.6 H, Lymph % (Auto) 11.2 L, Merrick % (Auto) 7.2, Eos % (Auto) 0.3, Baso % (Auto) 0.5, Absolute Neuts (auto) 5.2, Absolute Lymphs (auto) 0.73 L, Nucleated RBC % 0, PT 14.6, INR 1.1, APTT 28.0, Sodium 139, Potassium 4.9, Chloride 107 H, Carbon Dioxide 12.7 L, Anion Gap 20 H, BUN 62 H, Creatinine 2.12 H, Estim Creat Clear Calc 34.63 L, Est GFR (MDRD) Non-Af 31 L, BUN/Creatinine Ratio 29.1 H, Glucose 289 H, Lactic Acid 6.3 H*, Calcium 8.9, Total Bilirubin 0.34, AST 19, ALT 17, Alkaline Phosphatase 91, Troponin T High Sens 202 H*, NT pro BNP II 8947 H, Total Protein 6.3, Albumin 3.9, Globulin 2.4, Albumin/Globulin Ratio 1.6 11/24/25 23:43: Urine Color Yellow, Urine Clarity Clear, Urine pH 5.0, Ur Specific [place] 1.015, Urine Protein 100 H, Urine Glucose (UA) 1000 H, Urine Ketones Negative, Urine Occult Blood 25 H, Urine Nitrite Negative, Urine Bilirubin Negative, Urine Urobilinogen Normal, Ur Leukocyte Esterase Negative, Urine RBC 0-5 SEEN, Urine WBC 0-5 SEEN, Ur Squamous Epith Cells 0 SEEN, Urine Bacteria 0 SEEN, Urine Mucus 0 SEEN 11/25/25 01:21: Troponin T Hi Sens 2 Hr 209 H* 11/25/25 03:10: WBC 10.4, RBC 3.83 L, Hgb 11.3 L, Hct 35.5 L, MCV 92.7, MCH 29.5, MCHC 31.8 L, RDW Std Deviation 55.9 H, RDW Coeff of Dawood 16.6 H, Plt Count 230, MPV 11.8, Immature Gran % (Auto) 0.600, Neut % (Auto) 88.0 H, Lymph % (Auto) 3.8 L, Merrick % (Auto) 7.4, Eos % (Auto) 0.0, Baso % (Auto) 0.2, Absolute Neuts (auto) 9.2 H, Absolute Lymphs (auto) 0.40 L, Nucleated RBC % 0, PT 15.3 H, INR 1.2, APTT 34.8, Sodium 140, Potassium 5.2 H, Chloride 108 H, Carbon Dioxide 17.6 L, Anion Gap 15, BUN 61 H, Creatinine 2.20 H, Estim Creat Clear Calc 33.36 L, Est GFR (MDRD) Non-Af 30 L, BUN/Creatinine Ratio 27.9 H, Glucose 238 H, Calcium 9.0, Phosphorus 4.0, Magnesium 2.2 11/25/25 03:16: Lactic Acid 3.2 H* 11/25/25 05:47: POC Glucose 184 H Micro: Microbiology 11/25/25 03:05 Nasal Secretion MRSA (PCR) - Final 11/25/25 00:00 Urine Catheter - [place] Legionella Antigen - Final 11/25/25 00:00 Urine Catheter - [place] Streptococcus pneumoniae Antigen (M - Final 11/24/25 23:43 Mucosa - Nasopharyngeal SARS-CoV-2, Influenza & RSV (PCR) - Final ABG Data ABG results: ABG 11/24/25 23:25 Specimen Type ART Sample Site L Radial pH 7.34 L Bicarbonate Actual 15.4 L Total CO2 16 Base Excess -10 L O2 Saturation 98 O2 % 40.0 ABG pCO2 28.3 L ABG pO2 109 H Mitesh Test Negative Respiration Rate 12 O2 Delivery Device BiPAP Vent Mode Not entered POC PEEP 8 Imaging Radiology Impression Chest X-Ray 11/24/25 23:06 IMPRESSION: Hypoventilation. Right lung base airspace opacity. Probable small-sized right pleural effusion. Reading Location: [facility] Assessment and Plan . Assessment and plan: PE: General: Morbidly obese acute on chronically ill unkempt male, +NIV HEENT: anicteric Sclera, nl nose; supple neck, no masses Cardiovascular: tachy/irreg; No murmurs, rubs, gallops; 3-4+ BLE weeping/pitting edema up to scrotum Respiratory: diminished bases but otherwise clear; no crackles, wheezes, or rhonchi Abdominal: Non-tender; Non distended; hypoBS x 4; No Hepatosplenomegaly Extremities: warm; No clubbing, cyanosis; capillary refill < 2 sec Neurological: fatigued/lethargic; no gross motor deficits A/P: #Acute hypoxemic respiratory failure #SP VT/VF cardiac arrest #Acute decompensated CHF #?AFlutter #PHILLIP on CKD #?RLL PNA #Encephalopathy, toxic/metabolic #Hematuria 2* to malpositioned Walton -Cont NIV; settings reviewed; minimal O2 req; can transition to NC as tolerated by WOB with goal sats ~90-92% -F/U post-code labs/imaging; no neuro deficits; cont supportive measures -Cont amio gtt; F/U STAT TTE; cont hep gtt; trend Matt; no urgent plans for LHC at this time per cardiology; F/U additional recommendations -Cont diuresis & strict I/Os -Walton replaced; monitor hematuria; needs heparin gtt at this time -Emp vanc/cefepime; F/U Cx -Glycemic monitoring/control NPO Hep gtt Very guarded prognosis Critical Care Time: 60 min The entirety of this encounter was done via Telemedicine
[2025-11-25] MEDS: Amiodarone 360 MG in Dextrose 5% Viaflo Bag 192.8 ML 33.3 MG CONT INF (10:00)
--- NOTE | 2025-11-25 10:00 | RAD_ITS ---
PROCEDURE: CHEST 1 VIEW (PORTABLE) 11/25/2025 REASON FOR EXAM: CHF EXAC; POST-ARREST TECHNIQUE: Frontal view of the chest. COMPARISON: Chest radiograph 11/24/2025 FINDINGS: Persistent right pleural effusion. No pneumothorax. Linear opacities in the left lung likely reflecting atelectasis. Stable cardiomediastinal silhouette. Degenerative changes of the thoracic spine. RAD/Chest 1 View (Portable) IMPRESSION: Persistent right pleural effusion. No pneumothorax. No other significant mcgregor ges. Reading Location: [id number]
[2025-11-25 10:08] LABS: Base Excess -11 mmol/L (-2 to +2); FI02 25.0; PEEP 8; PO2 64 mmHG (75-100); RR 12; SITE L Brach; SO2 92 % (94-98)
[2025-11-25 10:24] LABS: Hematocrit 35.8 % (40-54); Hemoglobin 11.4 g/dL (13.0-16.5); Immature Granulocytes Count 0.090 X10^3/uL (0.0-0.0); Mean Corp Hgb Conc 31.8 g/dL (32-36); Mean Corpuscular Volume 92.5 fL (80-94); Mean Platelet Vol. 11.7 fl (6.2-12.0); NRBC Flagged by Analyzer 0.2 % (0-5); Platelet Count 230 K/mm3 (150-450); RBC Distribution Width CV 16.7 % (11.6-14.6); RBC Distribution Width SD 55.7 fl (35.1-43.9); Red Blood Count 3.87 M/mm3 (4.6-6.2); White Blood Count 10.9 K/mm3 (4.4-11.0)
--- NOTE | 2025-11-25 10:32 | PCM.CONS.C ---
Assessment & Plan Assessment/Plan (1) Cardiac arrest: PLAN: ? Patient with what appears to be a VT cardiac arrest. Possibly could be ischemic in nature however patient with no chest pain and cardiac troponins only noted to be minimally elevated and not in ACS pattern ? Patient overall stable and with amiodarone appears to be having less ectopy. For now we will hold off on emergent heart catheterization ? Echocardiogram ordered needs review ? If ejection fraction is noted to be low with suggest proceeding with left heart catheterization/coronary angiogram ? Cardiology will follow (2) Acute decompensated heart failure: PLAN: ? Patient with shortness of breath, edema, and orthopnea along with respiratory failure concerning for CHF exacerbation. Unsure if systolic versus diastolic ? Echocardiogram ordered review ? For now continue amiodarone. Will hold off on GDMT. Continue with diuresis Bumex 2 mg IV twice daily suggested along with monitoring of renal function and electrolytes ? Goal potassium greater than 4.0 magnesium greater than 2.0 (3) Non-STEMI (non-ST elevated myocardial infarction): PLAN: ? Patient with minimally elevated troponin not trending in ACS pattern and patient with no reports of chest pain ? As noted above await echocardiogram for further recommendations. Continue on heparin drip for now (4) Acute hypoxemic respiratory failure: PLAN: ? Likely related to CHF exacerbation ? Recommend continuation of BiPAP wean O2 as tolerated ? Consider consult to IR/general surgery to complete thoracentesis (5) PHILLIP (acute kidney injury): PLAN: ? Serum creatinine at admission noted to be 2.1 slight decline but overall stable today at 2.2. Unsure of baseline could be chronic and patient with history of diabetes and hypertension ? Continue current treatment for now along with monitoring of renal function ? Avoid nephrotoxic medications and treatments (6) Essential hypertension: PLAN: ? Blood pressure currently with fair control ? Continue current treatment with goal blood pressure less than 150/90 (7) Mixed hyperlipidemia: PLAN: ? If not already completed recommend checking lipid profile along with hemoglobin A1c for risk stratification. ? Recommend continuation of high-dose statin with goal LDL less than 70 (8) Type 2 diabetes mellitus without complication, with no history of insulin use: PLAN: ? Unsure of baseline hemoglobin A1c. Recommend checking A1c for risk stratification ? Goal hemoglobin A1c less than 8.0 ? For now continue current medications and maintain blood glucose during admission between 100?180 ? Further management per hospitalist team (9) Obesity (BMI 30-39.9): PLAN: ? BMI of 39.3. Need for increased diet and exercise regimen. 150-180 minutes of moderate intensity exercise per week suggested PLAN: Plan ? Patient is status post cardiac arrest. As noted above could be possibly Olga phenomenon however for now recording as a VT arrest ? Continue amiodarone drip along with heparin drip and current management ? Echocardiogram ordered needs review and if patient does have cardiomyopathy suggest proceeding with left heart catheterization. Further recommendations to follow ? I did discuss with patient if he develops any chest pain or overall worsening of his current status including further arrhythmias we will need to proceed with emergent heart catheterization. HPI Consult Data Date of Consult: 11/25/25 HPI Narrative Reason for Consultation: Cardiac arrest; exacerbation of CHF HPI Narrative: HEIKE WEST, is a 80 M with reported past medical history of hypertension, hyperlipidemia, type 2 diabetes, and prior CVA presents to the emergency department by EMS after being found on the floor with shortness of breath by his daughter. Discussion with the patient he reports that he was getting up out of chair and fell down to the ground. Apparently his daughter heard him fall therefore contacted EMS. Son reports that upon arrival by EMS O2 saturations were in the 40% range therefore he was placed on BiPAP and presented to the ED for evaluation. Patient continued on BiPAP with fair O2 saturation however with reports of shortness of breath, progressive lower extremity edema and possibly some orthopnea concern for CHF exacerbation. Apparently symptoms have been going on with progressive lower extremity edema over the past 2 weeks. Discussed with the patient and he reports no chest pain during this time just mostly lower extremity edema and worsening shortness of breath. Chest x-ray completed in the ED with a right pleural effusion and cephalization concerning for CHF exacerbation. Patient admitted to the ICU for further monitoring and management. Cardiac troponins were obtained and noted to be mildly elevated at 200. This morning prior to my consult being placed according to nursing staff she was in the room attempting to adjust his Walton catheter due to some leakage and on the monitor patient went into ventricular tachycardia. She reports that initially he was looking at her but finding it did appear to potentially lose consciousness therefore CODE BLUE was called and CPR was initiated. She reports that CPR was only completed for short period of time and after reevaluation patient was noted to be back in his previous rhythm which with review of telemetry appears to show atrial fibrillation. Long review of telemetry and it appears that patient was in atrial fibrillation throughout this time frequent ectopy with episodes of either Olga phenomenon or nonsustained ventricular tachycardia were noted. During his event patient did appear to be possibly in ventricular tachycardia versus again could be a long run of Olga phenomenon. Prior to my evaluation a bolus of amiodarone was given and patient with less ectopy. Remains on the BiPAP machine and he reports no concerning cardiovascular complaints or issues specifically no chest pain. He denies being aware of having a heart attack in the past denies ever having a heart catheterization/coronary angiogram only remembers from a cardiovascular standpoint having a CVA. [facility] Medical History Wears glasses Loose, teeth Diabetes Ambulates with cane High cholesterol Hypertension Restless legs Stroke/cerebrovascular accident Chews tobacco Non-smoker History of edema History of irregular heartbeat Home Medications ?Medication ?Instructions ?Recorded ?Last Taken ?Type atorvastatin 20 mg tablet 20 mg PO DAILY 10/08/22 Unknown History clopidogrel 75 mg tablet 1 mg PO DAILY 10/08/22 Unknown History empagliflozin 25 mg tablet 25 mg PO DAILY 10/08/22 Unknown History (Jardiance) glimepiride 4 mg tablet 4 mg PO BID 10/08/22 Unknown History lisinopril 10 mg tablet 10 mg PO DAILY 10/08/22 10/14/22 08:00 History mecobalamin (vitamin B12) 1,000 1,000 mcg PO DAILY 10/08/22 Unknown History mcg chewable tablet (B12 Active) metformin 1,000 mg tablet 1,000 mg PO BID 10/08/22 Unknown History pioglitazone 45 mg tablet (Actos) 45 mg PO DAILY 10/08/22 Unknown History venlafaxine 75 mg capsule,extended 75 mg PO DAILY 10/08/22 Unknown History release 24 hr amlodipine 5 mg tablet 5 mg PO DAILY 11/24/25 Unknown History Allergy/AdvReac Type Severity Reaction Status Date / Time No Known Allergies Allergy Verified 11/24/25 22:52 Surgical History History of hernia repair Social History Smoking Status: Never smoker ROS ROS Narrative 12 systems were reviewed and negative unless stated above Physical Exam Const alert Constitutional Narrative: Some limitations to evaluation patient currently on CPAP machine however does appear to be answering all questions appropriately Orientation / Consciousness: awake HEENT normocephalic Eyes PERRL Neck no carotid bruits Resp normal respiratory effort Resp Narrative: Decreased breath sounds. No wheezes, rales, or rhonchi appreciated Cardio Cardio Narrative: Irregular rate and irregular rhythm with no murmurs, rubs or gallops appreciated GI normal to inspection, nondistended, normoactive bowel sounds and soft to palpation Extremity Extremity Narrative: 2-3+ bilateral lower extremity pitting edema extending up into the thighs. Some weeping noted along with what appears to be a burst blister on his right lower extremity/foot Skin no rashes or lesions noted Neuro Neuro Narrative: Moves all extremities and sensation appears to be intact Psych Psych Narrative: Difficult to evaluate however appropriate mood and affect during evaluation Charges/Coding Visit Charges Inpatient E&M: 30997 Init Hosp L3 Objective Data Vital Signs: Vital Signs Temp Pulse Resp BP Pulse Ox O2 Del Method O2 Flow Rate 98.3 F 93 20 H 97/64 96 Bi-pap 11/25/25 04:00 11/25/25 09:30 11/25/25 10:14 11/25/25 09:30 11/25/25 10:14 11/25/25 10:14 11/25/25 09:30 FiO2 11/25/25 10:14 Oxygen Flow Rate (L/min) 25 Oxygen Delivery Method Bi-pap Weight: 251 lb 1.704 oz Body Mass Index (BMI) 39.4 Intake & Output: Intake and Output for Last 24 Hours 11/23/25 11/24/25 11/25/25 23:59 23:59 23:59 Intake Total 0 / 0 635 / 635 Output Total 750 / 750 Balance 0 / 0 -115 / -115 Lab / Micro Data Attestation: I reviewed the patient's lab results. 11/25/25 10:10 11/25/25 03:10 Labs: Laboratory Results - last 24 hr 11/24/25 23:00: WBC 6.5, RBC 3.84 L, Hgb 11.1 L, Hct 35.6 L, MCV 92.7, MCH 28.9, MCHC 31.2 L, RDW Std Deviation 55.4 H, RDW Coeff of Dawood 16.7 H, Plt Count 240, MPV 11.8, Immature Gran % (Auto) 1.200 H, Neut % (Auto) 79.6 H, Lymph % (Auto) 11.2 L, Mercer % (Auto) 7.2, Eos % (Auto) 0.3, Baso % (Auto) 0.5, Absolute Neuts (auto) 5.2, Absolute Lymphs (auto) 0.73 L, Nucleated RBC % 0, PT 14.6, INR 1.1, APTT 28.0, Sodium 139, Potassium 4.9, Chloride 107 H, Carbon Dioxide 12.7 L, Anion Gap 20 H, BUN 62 H, Creatinine 2.12 H, Estim Creat Clear Calc 34.63 L, Est GFR (MDRD) Non-Af 31 L, BUN/Creatinine Ratio 29.1 H, Glucose 289 H, Lactic Acid 6.3 H*, Calcium 8.9, Total Bilirubin 0.34, AST 19, ALT 17, Alkaline Phosphatase 91, Troponin T High Sens 202 H*, NT pro BNP II 8947 H, Total Protein 6.3, Albumin 3.9, Globulin 2.4, Albumin/Globulin Ratio 1.6 11/24/25 23:43: Urine Color Yellow, Urine Clarity Clear, Urine pH 5.0, Ur Specific Granville 1.015, Urine Protein 100 H, Urine Glucose (UA) 1000 H, Urine Ketones Negative, Urine Occult Blood 25 H, Urine Nitrite Negative, Urine Bilirubin Negative, Urine Urobilinogen Normal, Ur Leukocyte Esterase Negative, Urine RBC 0-5 SEEN, Urine WBC 0-5 SEEN, Ur Squamous Epith Cells 0 SEEN, Urine Bacteria 0 SEEN, Urine Mucus 0 SEEN 11/25/25 01:21: Troponin T Hi Sens 2 Hr 209 H* 11/25/25 03:10: WBC 10.4, RBC 3.83 L, Hgb 11.3 L, Hct 35.5 L, MCV 92.7, MCH 29.5, MCHC 31.8 L, RDW Std Deviation 55.9 H, RDW Coeff of Dawood 16.6 H, Plt Count 230, MPV 11.8, Immature Gran % (Auto) 0.600, Neut % (Auto) 88.0 H, Lymph % (Auto) 3.8 L, Mercer % (Auto) 7.4, Eos % (Auto) 0.0, Baso % (Auto) 0.2, Absolute Neuts (auto) 9.2 H, Absolute Lymphs (auto) 0.40 L, Nucleated RBC % 0, PT 15.3 H, INR 1.2, APTT 34.8, Sodium 140, Potassium 5.2 H, Chloride 108 H, Carbon Dioxide 17.6 L, Anion Gap 15, BUN 61 H, Creatinine 2.20 H, Estim Creat Clear Calc 33.36 L, Est GFR (MDRD) Non-Af 30 L, BUN/Creatinine Ratio 27.9 H, Glucose 238 H, Calcium 9.0, Phosphorus 4.0, Magnesium 2.2 11/25/25 03:16: Lactic Acid 3.2 H* 11/25/25 05:47: POC Glucose 184 H 11/25/25 10:10: WBC 10.9, RBC 3.87 L, Hgb 11.4 L, Hct 35.8 L, MCV 92.5, MCH 29.5, MCHC 31.8 L, RDW Std Deviation 55.7 H, RDW Coeff of Dawood 16.7 H, Plt Count 230, MPV 11.7, Immature Gran % (Auto) 0.800, Neut % (Auto) 85.9 H, Lymph % (Auto) 5.8 L, Mercer % (Auto) 7.3, Eos % (Auto) 0.0, Baso % (Auto) 0.2, Absolute Neuts (auto) 9.4 H, Absolute Lymphs (auto) 0.63 L, Nucleated RBC % 0.2 Micro: Microbiology 11/25/25 03:05 Nasal Secretion MRSA (PCR) - Final 11/25/25 00:00 Urine Catheter - Walton Legionella Antigen - Final 11/25/25 00:00 Urine Catheter - Walton Streptococcus pneumoniae Antigen (M - Final 11/24/25 23:43 Mucosa - Nasopharyngeal SARS-CoV-2, Influenza & RSV (PCR) - Final ABG Data ABG results: ABG 11/24/25 11/25/25 23:25 10:05 Specimen Type ART ART Sample Site L Radial L Brach pH 7.34 L 7.37 Bicarbonate Actual 15.4 L 14.1 L Total CO2 16 15 Base Excess -10 L -11 L O2 Saturation 98 92 L O2 % 40.0 25.0 ABG pCO2 28.3 L 24.5 L ABG pO2 109 H 64 L Mitesh Test Negative Respiration Rate 12 12 O2 Delivery Device BiPAP BiPAP Vent Mode Not entered Not entered POC PEEP 8 8 Rhythm Strip Rhythm Strip: A-fib (Atrial fibrillation with frequent ectopy; during event appeared to be ventricular tachycardia converted back to atrial fibrillation mostly rate controlled however some mild RVR also noted) Cardiology Labs/Tests 11/24/25 23:00: WBC 6.5, RBC 3.84 L, Hgb 11.1 L, Hct 35.6 L, MCV 92.7, MCH 28.9, MCHC 31.2 L, Plt Count 240, MPV 11.8, Immature Gran % (Auto) 1.200 H, Neut % (Auto) 79.6 H, Lymph % (Auto) 11.2 L, Mercer % (Auto) 7.2, Eos % (Auto) 0.3, Baso % (Auto) 0.5, Absolute Neuts (auto) 5.2, Nucleated RBC % 0, PT 14.6, INR 1.1, APTT 28.0, Sodium 139, Potassium 4.9, Chloride 107 H, Carbon Dioxide 12.7 L, Anion Gap 20 H, BUN 62 H, Creatinine 2.12 H, Est GFR (MDRD) Non-Af 31 L, BUN/Creatinine Ratio 29.1 H, Glucose 289 H, Lactic Acid 6.3 H*, Calcium 8.9, Total Bilirubin 0.34 11/24/25 23:25: pH 7.34 L, Bicarbonate Actual 15.4 L, Base Excess -10 L, O2 Saturation 98, ABG pCO2 28.3 L, ABG pO2 109 H, Mitesh Test Negative 11/24/25 23:43: Urine Color Yellow, Urine Clarity Clear, Urine pH 5.0, Ur Specific Gran[place] 1.015, Urine Protein 100 H, Urine Glucose (UA) 1000 H, Urine Ketones Negative, Urine Occult Blood 25 H, Urine Nitrite Negative, Urine Bilirubin Negative, Urine Urobilinogen Normal, Ur Leukocyte Esterase Negative, Urine RBC 0-5 SEEN, Urine WBC 0-5 SEEN 11/25/25 03:10: WBC 10.4, RBC 3.83 L, Hgb 11.3 L, Hct 35.5 L, MCV 92.7, MCH 29.5, MCHC 31.8 L, Plt Count 230, MPV 11.8, Immature Gran % (Auto) 0.600, Neut % (Auto) 88.0 H, Lymph % (Auto) 3.8 L, Mercer % (Auto) 7.4, Eos % (Auto) 0.0, Baso % (Auto) 0.2, Absolute Neuts (auto) 9.2 H, Nucleated RBC % 0, PT 15.3 H, INR 1.2, APTT 34.8, Sodium 140, Potassium 5.2 H, Chloride 108 H, Carbon Dioxide 17.6 L, Anion Gap 15, BUN 61 H, Creatinine 2.20 H, Est GFR (MDRD) Non-Af 30 L, BUN/Creatinine Ratio 27.9 H, Glucose 238 H, Calcium 9.0, Phosphorus 4.0, Magnesium 2.2 11/25/25 03:16: Lactic Acid 3.2 H* 11/25/25 10:05: pH 7.37, Bicarbonate Actual 14.1 L, Base Excess -11 L, O2 Saturation 92 L, ABG pCO2 24.5 L, ABG pO2 64 L 11/25/25 10:10: WBC 10.9, RBC 3.87 L, Hgb 11.4 L, Hct 35.8 L, MCV 92.5, MCH 29.5, MCHC 31.8 L, Plt Count 230, MPV 11.7, Immature Gran % (Auto) 0.800, Neut % (Auto) 85.9 H, Lymph % (Auto) 5.8 L, Mercer % (Auto) 7.3, Eos % (Auto) 0.0, Baso % (Auto) 0.2, Absolute Neuts (auto) 9.4 H, Nucleated RBC % 0.2 Rhythm: EKG: ECHO: Stress Test: Cardiac Cath: PCI: CT Surgery: Holter monitor: EPS: PPM: CXR: Chest CT Scan: Radiography Diagnostic Testing: Radiology Impression Chest X-Ray 11/24/25 23:06 IMPRESSION: Hypoventilation. Right lung base airspace opacity. Probable small-sized right pleural effusion. Reading Location: [facility] Risk Score for UA/STEMI Assesmment (YES = 1) Risk Stratification Applicable: Yes Age > or = 65: Yes > or = 3 CAD risk factors (HTN, Hypercholesterolemia, Diabetes, family hx, current smoker): Yes Known CAD (Stenosis > or = 50%): No ASA used in past 7 days: No Severe angina (> or = 2 episodes in 24 hrs): No EKG ST change > or = 0.5mm: No Positive cardiac markers: Yes Score KARYN Risk Score of mortality/ recurrent ischemic event over the next 14 days: 3 = 13.2% Intermediate Risk
[2025-11-25 11:01] LABS: AST(SGOT) 22 U/L (<=37); Alanine Aminotransfer ALT/SGPT 19 U/L (<=46); Albumin, Serum 3.9 g/dL (3.4-4.8); Alkaline Phosphatase 90 U/L (40-129); Anion Gap 16 (7-18); BUN 61 mg/dL (4-19); BUN/Creat Ratio 30.7 RATIO (10-20); Calcium,Total 9.0 mg/dL (7.6-11.0); Carbon Dioxide 16.0 mmol/L (20.0-29.0); Chloride 107 mmol/L (96-106); Estimated Creatinine Clearance 37.06 ml/min (50-250); Globulin 2.6 g/dL (2.2-4.2); Glucose 259 mg/dL (70-99); Magnesium 2.2 mg/dL (1.5-2.2); Potassium 5.5 mmol/L (3.5-5.1)
[2025-11-25 11:23] LABS: Partial Thromboplast Time > 250.0 Seconds (24.1-36.2)
[2025-11-25] MEDS: Lidocaine Jelly 2% 20 ML Syringe (URO-JET) 1 APPLIC TOPICAL (11:30)
--- NOTE | 2025-11-25 11:55 | NURSING ---
1128 VT on monitor, initially responds w/good eye contact and accurate verbal response. code blue called. 1129 VT resolves, pt seizing. 1130 Ativan 2mg IV push given. present in pt room. 1133 Dr. Méndez on the phone, notified repeat VT w/seizure. 1137 yard labor supervisor called in 1140 family present in pt room, update given, POC disc. questions answered, reassurance given
[2025-11-25] MEDS: 0.9 % NaCl (Sterile) Posiflush 10 mL IV ×3 (12:16→18:55)
--- NOTE | 2025-11-25 12:30 | NURSING ---
to laboratory technical specialist, [employer]SEM[employer] and RT present. bedside report given in laboratory technical specialist
--- NOTE | 2025-11-25 13:45 | PCI.CARDCATH ---
PCI Cardiac Cath Report PCI Report: Date of procedure: 11/25/2025 Procedure: Left heart catheterization/coronary angiogram under moderate sedation. Description: Patient brought down to the Serologist from his room and placed on the table under sterile conditions patient was sanitized and draped and prepped for the procedure. A timeout was completed and after completion of the timeout patient was provided with sedation utilizing 0.5 mg of IV Versed only. Sedation was supervised directly by me and monitored separately by a trained registered nurse. Utilizing ultrasound guidance and micropuncture needle technique a 6 Haitian sheath was placed in the right common femoral artery. A J-wire as well as a 6 Haitian JR4 catheter was then advanced up to the heart and into the left ventricle checking LV pressures. A pullback gradient was completed with no significant gradient appreciated on pullback. This catheter was left in place and used to attempt engagement of the right coronary artery however this was unsuccessful. This catheter was removed followed by placement of a 6 Haitian 3 DRC diagnostic catheter with successful engagement of the right coronary artery. There is severe calcification noted at the ostium of the vessel therefore full 100% engagement was not completed. Successfully able to image the right coronary artery with multiple images completed via multiple angles. This catheter was then removed followed by placement of a 6 Haitian JL 4 diagnostic catheter used to engage the left main coronary artery and complete imaging of the left system. Multiple images were obtained utilizing multiple angles. This catheter was then removed and a common femoral angiogram was completed utilizing the sheath that was then placed. The vessel appeared to be a good size with mild visible has calcification therefore considered possibly capable of Perclose placement. The Perclose device was placed and the initial deployment was unsuccessful likely due to catching on some calcification. A second device was then inserted and appeared to capture the vessel however when attempting to deploy the sutures and closed them continue bleeding was noted therefore manual pressure was planned to be held for hemostasis. Will plan for 20 minutes of manual pressure for hemostasis. Hemodynamics: LVEDP 20-25 mmHg with no significant gradient appreciated on pullback. LV: 104/23 AL: 105/55 Coronary arteries: Right dominant system Left Main coronary artery: At least moderate size vessel with moderate diffuse disease noted throughout the vessel. There does appear to be approximately 60-70% hazy fibrocalcific lesion noted in the mid portion of the vessel. Left coronary artery: At least medium sized vessel with severe 95% ostial stenosis and approximately 50% fibrocalcific disease noted in the midsegment otherwise mild diffuse disease. D1 [could be a ramus intermedius] appears to be a medium size vessel with mild diffuse disease in the proximal vessel. Both the superior and inferior branches are small in size and have high-grade lesions appreciated. The inferior branch lesion estimated at 99-100% with likely collateral flow filling the vessel. D2 is a small vessel with mild diffuse disease. The superior branch appears to be free from any severe disease however the inferior branch appears to have a severe lesion noted in the midportion. Left circumflex: Appears to have 100% ostial stenosis with no collaterals appreciated. Right coronary artery: Moderate to large size vessel with severe diffuse calcification appreciated. Estimated 80% lesion at the proximal portion of the mid segment and a 95% lesion at the distal portion of the mid segment. There is a hazy likely 90-95% lesion noted in the distal RCA. The right PLV and right PDA vessels are fairly small in size but appear to be clear of any severe lesions. Complications: No complications Impression: Mildly elevated LVEDP of 20-25 mmHg with severe multivessel CAD noted. 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 Suspect that the left circumflex could be the culprit vessel for his cardiac issues since there has not been any collaterals formed. Patient with symptoms going back as far as 2 weeks which could have been the inciting event with a STEMI potentially at that time. This is possibly why his troponins were noted to only be mildly elevated during his evaluation here. Recommendations: Echocardiogram has not been completed however suspect cardiomyopathy. Patient with multivessel CAD as well as diabetes and likely cardiomyopathy therefore recommendations for CABG evaluation. At his age and baseline risk factors if he is determined not to be a CABG candidate then could proceed with high risk PCI. Plan of care discussed with hospitalist team. Sedation: 0.5 mg of IV Versed given during the procedure. Total sedation time of 42 minutes. Radiation: 4.4 minutes for total of 362 mGy. Estimated blood loss: Less than 20 cc Specimens removed: None Contrast: 56 cc Charges/Coding Procedures Coronary Therapeutic CF Procedures [id number]: 32659 L hrt artery/ventricle angio
--- NOTE | 2025-11-25 14:00 | NURSING ---
in ICU7, return from school laboratory technician, school laboratory technician staff in attendance
[2025-11-25] MEDS: Amiodarone 360 MG in Dextrose 5% Viaflo Bag 192.8 ML 16.7 MG CONT INF (16:06)
[2025-11-25] MEDS: Pantoprazole Sodium 40 MG in 0.9% Normal Saline (100mL MB+) 100 ML 300 MG IV (16:11)
--- NOTE | 2025-11-25 17:26 | NURSING ---
pts dtr Lisa notified bed assignment and accepting physician at [facility]
[2025-11-25 20:47] LABS: Partial Thromboplast Time 215.5 Seconds (24.1-36.2)
--- NOTE | 2025-11-25 21:49 | NURSING ---
Transport team here for transport. Report given. Heparin and amio drip. Pt left with [facility] transport @ [phone].
--- NOTE | 2025-11-26 12:12 | PCM.DC.SUM ---
Providers Date of Admission: 11/25/25 Date of Discharge: 11/25/25 Primary Care Physician: Dr. Weslye Hampton, Consultations 11/25/25 03:20 Consult: Cardiology Routine Consulting Provider: Renee Clement Reason for Consult: Non-ST ration PA EMERGENT Consult: Yes Notified: Yes Date Notified: 11/25/25 Time Notified: 09:00 Method of Notification: Verbal Method of Consult:: In-Person 11/25/25 09:53 Consult: [employer]ographic Area Intelligence Officer / Pulmonary Medicine Routine Consulting Provider: Intensivists/Pulmonary Med Reason for Consult: sp cardiac arrest EMERGENT Consult: Yes MD Notified: Yes Date Notified: 11/25/25 Time Notified: 09:53 Method of Notification: Verbal Reason For Visit: ACUTE RESPIRATORY FAILURE Diagnosis Discharge Diagnosis (1) Cardiac arrest: Status: Acute Code(s): I46.9 - Cardiac arrest, cause unspecified (2) Acute decompensated heart failure: Status: Acute Code(s): I50.9 - Heart failure, unspecified (3) Non-STEMI (non-ST elevated myocardial infarction): Status: Acute Code(s): I21.4 - Non-ST elevation (NSTEMI) myocardial infarction (4) Acute hypoxemic respiratory failure: Status: Acute Code(s): J96.01 - Acute respiratory failure with hypoxia (5) PHILLIP (acute kidney injury): Status: Acute Code(s): N17.9 - Acute kidney failure, unspecified (6) Essential hypertension: Status: Acute Code(s): I10 - Essential (primary) hypertension (7) Mixed hyperlipidemia: Status: Acute Code(s): E78.2 - Mixed hyperlipidemia (8) Type 2 diabetes mellitus without complication, with no history of insulin use: Status: Acute Code(s): E11.9 - Type 2 diabetes mellitus without complications (9) Obesity (BMI 30-39.9): Status: Acute Code(s): E66.9 - Obesity, unspecified Medications at Discharge Home Medications atorvastatin 20 mg tablet 20 mg PO DAILY 10/08/22 clopidogrel 75 mg tablet 1 mg PO DAILY 10/08/22 empagliflozin 25 mg tablet (Jardiance) 25 mg PO DAILY 10/08/22 glimepiride 4 mg tablet 4 mg PO BID 10/08/22 lisinopril 10 mg tablet 10 mg PO DAILY 10/08/22 mecobalamin (vitamin B12) 1,000 mcg chewable tablet (B12 Active) 1,000 mcg PO DAILY 10/08/22 metformin 1,000 mg tablet 1,000 mg PO BID 10/08/22 pioglitazone 45 mg tablet (Actos) 45 mg PO DAILY 10/08/22 venlafaxine 75 mg capsule,extended release 24 hr 75 mg PO DAILY 10/08/22 amlodipine 5 mg tablet 5 mg PO DAILY 11/24/25 Hospital Course Operations None Procedures Cardiac catheterization and CPR performed Summary of Care Provided Minutes Spent on Discharge: 85 Hospital Course: Per HPI: HEIKE WEST, is a 80 M who presents 2-week history of progressively worsening shortness of breath and lower extremity swelling. Patient has a medical history of diabetes, hypertension and prior CVA who has been feeling increasing shortness of breath on minimal exertion, orthopnea and progressive lower extremity swelling that started 2 weeks ago. Today daughter found the patient on the floor unable to breathe. Patient has no history of heart disease and not on diuretics. They think he might have had a heart attack in the past, and his EKG shows Q waves in inferior leads. No cough or sputum production. No fever or sick contact. In the ED he was hypoxemic and very tachypneic and required BiPAP. Chest x-ray showed large right pleural effusion and pulmonary edema in addition to extreme lower extremity swelling with blistering and weeping fluid, he received a dose of Bumex IV 1 mg with only 200 mL urine output after 1 hour and gave him minimal relief of symptoms. Slightly hypotensive systolic in the 100s WBC 6.5. Lactic acid 6.3 with anion gap of 20. pH 7.34, pCO2 28 and pO2 was 109 on BiPAP 40%. Creatinine 2.12 no recent baseline. Troponin 202 then 2 hours 209. EKG was possibly atrial flutter with ventricular rate of 100 and multiple PVCs. Q waves in 3 and aVF, ST appears elevated in lead III but the J-point was at isoelectric line. Patient will be admitted to ICU with acute hypoxemic failure due to acute pulmonary edema from acute decompensated heart failure, possibly from acute coronary syndrome. Cannot rule out pneumonia as well. Hospital Course: 1. Sepsis and acute hypoxic respiratory failure secondary to pneumonia with heart failure exacerbation unknown type in the setting of a non-STEMI with a V-fib/V. tach arrest?80-year-old male presented to the hospital with increasing shortness of breath and lower extremity edema. He was found by his daughter to be unresponsive and unable to breathe so she called 911 and he presented to the hospital. He was found to be volume overloaded and so was started on Bumex and was placed on BiPAP, he did have an ABG demonstrating a pH of 7.34 with a pCO2 of 28 and a pO2 of 109, his lactic acid initially was 6.3. He was admitted to the hospital with cardiology consult for possible evaluation of his heart failure versus a cardiac cath as his troponins were also elevated to 209. Over the course of the morning he had a V-fib arrest necessitating CPR, no shocks were given prior to my arrival and after my arrival he recovered circulation before pads could even be placed on his chest. He was given a bolus of amiodarone and then started on amiodarone drip. Cardiology evaluated him and initially recommended medical management with an amiodarone drip. Approximately an hour and a half later he had another CODE BLUE event though this episode did not require CPR as it was short-lived and he came out of V. tach, he was given another bolus dose of amiodarone and cardiology took him to the [facility]. 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 He was accepted by [facility] and was transferred on 11/25/2025. Cath report: Coronary arteries: Right dominant system Left Main coronary artery: At least moderate size vessel with moderate diffuse disease noted throughout the vessel. There does appear to be approximately 60-70% hazy fibrocalcific lesion noted in the mid portion of the vessel. Left coronary artery: At least medium sized vessel with severe 95% ostial stenosis and approximately 50% fibrocalcific disease noted in the midsegment otherwise mild diffuse disease. D1 [could be a ramus intermedius] appears to be a medium size vessel with mild diffuse disease in the proximal vessel. Both the superior and inferior branches are small in size and have high-grade lesions appreciated. The inferior branch lesion estimated at 99-100% with likely collateral flow filling the vessel. D2 is a small vessel with mild diffuse disease. The superior branch appears to be free from any severe disease however the inferior branch appears to have a severe lesion noted in the midportion. Left circumflex: Appears to have 100% ostial stenosis with no collaterals appreciated. Right coronary artery: Moderate to large size vessel with severe diffuse calcification appreciated. Estimated 80% lesion at the proximal portion of the mid segment and a 95% lesion at the distal portion of the mid segment. There is a hazy likely 90-95% lesion noted in the distal RCA. The right PLV and right PDA vessels are fairly small in size but appear to be clear of any severe lesions. 2. Essential hypertension, hyperlipidemia, type 2 diabetes, anxiety, depression are all chronic medical conditions which complicate his care. His home medications were continued where appropriate Weight / BMI Weight Weight: 251 lb 1.704 oz Body Mass Index (BMI) 39.4 ABG / Lab / Microbiology Data 11/25/25 10:10 11/25/25 10:10 Laboratory: Laboratory Results - last 24 hr 11/25/25 14:37: POC Glucose 255 H 11/25/25 18:57: POC Glucose 221 H 11/25/25 19:48: APTT 215.5 H* Microbiology: Microbiology 11/24/25 23:43 Urine, Catheterized Urine Culture - Preliminary Mixed Gram Positive Organisms 11/24/25 00:05 Blood Culture (Wb) - Left Hand Bacteria Detection (PCR) - Final Coag Negative Staph 11/24/25 00:05 Blood Culture (Wb) - Left Hand Blood Culture - Preliminary 11/25/25 03:05 Nasal Secretion MRSA (PCR) - Final 11/25/25 00:00 Urine Catheter - [place] Legionella Antigen - Final 11/25/25 00:00 Urine Catheter - [place] Streptococcus pneumoniae Antigen (M - Final 11/24/25 23:43 Mucosa - Nasopharyngeal SARS-CoV-2, Influenza & RSV (PCR) - Final D/C Instructions DC O2, CPAP, BIPAP Needs Home O2 Discharge instructions: No Meaningful Use Info Meaningful Use Meaningful Use Diagnoses (Choose all that apply): None applicable Discharge Plan Admission Admit Date/Time: 11/25/25 02:29 Primary Reason for Your Visit: Acute respiratory failure. Attending Provider: Rodger Castillo Primary Care Provider: Wesley Hampton Consulting Providers: Beverly Lewis; Paty Meléndez; Tacos Merrill; Wil Alexandra; Genia Rod; Sergio Thakkar; Abel Arrington; Jacobo Casas; Carlos Hamilton; Nitish Lawson; Andre Nassar; Clay Méndez; Fernando Faulkner; Destiney Francois; Maritza Killian; Mahad Medina; Marshal Moses; Gunner Powell NP; Lisa Vail; David Millard; Rj Meza; Sean Park; Fer Rivera; Enrique Long; Paulino Denney; Nitish Brown; Caity Sanchez; Carlos Horowitz; Romina Locke; Yordan Espinosa; Velvet Keller; Marcelo Contreras; Angel Naranjo; Anitra Mitchell; Tucker Jose; Barry Davies; Elio Philippe; Bonnie Malave; Alexa Boone; Garrison Macedo; Geetha Santillan; Zulay Yañez; Cristobal Ann; Jazmin Ojeda; Kalpana Grayson; Preston Stevenson; Domingo Coburn; Jazmin Rodriguez; Rodger Stapleton; Emanuel Mcmullen; Keshawn Mckenna; Pam Rowell; Douglas,Jadon; Xochilt,Graham; Florina Bloom; America Carmona; Bushra Berrios; Kaylin Bashir; Dustin Zhao; Lizabeth,Keshav; Adam,Adán; Lorenzo Sher; Eron Holden Discharge Orders/Prescriptions Prescriptions: No Action venlafaxine 75 mg capsule,extended release 24hr 75 mg PO DAILY Patient Comments: TAKE 1 CAPSULE BY MOUTH EVERY DAY atorvastatin 20 mg tablet 20 mg PO DAILY Patient Comments: TAKE 1 TABLET BY MOUTH EVERY DAY pioglitazone [Actos] 45 mg Tablet 45 mg PO DAILY clopidogrel 75 mg tablet 1 mg PO DAILY Patient Comments: TAKE 1 TABLET BY MOUTH EVERY DAY metformin 1,000 mg tablet 1,000 mg PO BID Patient Comments: TAKE 1 TABLET BY MOUTH TWICE A DAY WITH MEALS lisinopril 10 mg tablet 10 mg PO DAILY Patient Comments: TAKE 1 TABLET BY MOUTH EVERY DAY glimepiride 4 mg tablet 4 mg PO BID Patient Comments: TAKE 1 TABLET BY MOUTH TWICE A DAY Jardiance 25 mg tablet 25 mg PO DAILY mecobalamin (vitamin B12) [B12 Active] 1,000 mcg Tablet,Chewable 1,000 mcg PO DAILY amlodipine 5 mg tablet 5 mg PO DAILY Referrals / Follow Up: Wesley Hampton DO [Primary Care Provider, Medical] Disposition Disposition (needs filled in before D/C Order can be placed): DC/Tx to Another Type of HCF Charges/Coding Visit Charges OBSV E&M: 70125 Observ/hosp same date L3
== END 2025-11-25 21:39 | disposition other institution (70) | DRG 280 ==
LOC: ED 11-25 00:20 → ICU 11-25 02:50
PROVIDERS: Internal Medicine; Internal Medicine Pulmonary Disease; Admitting Provider Internal Medicine; Emergency Provider Specialist/Technologist Athletic Trainer; PCP Family Medicine; Referring Provider Internal Medicine; Visit Provider Family Medicine
DX: I21.4 Non-ST elevation (NSTEMI) myocardial infarction (principal); A41.9 Sepsis, unspecified organism; I46.9 Cardiac arrest, cause unspecified; J18.9 Pneumonia, unspecified organism; J81.0 Acute pulmonary edema; J96.01 Acute respiratory failure with hypoxia; E87.20 Acidosis, unspecified; J90 Pleural effusion, not elsewhere classified; N17.9 Acute kidney failure, unspecified; I13.0 Hypertensive heart and chronic kidney disease with heart failure and stage 1 through stage 4 chronic kidney disease, or unspecified chronic kidney disease; E11.22 Type 2 diabetes mellitus with diabetic chronic kidney disease; N18.9 Chronic kidney disease, unspecified; E66.9 Obesity, unspecified; F41.9 Anxiety disorder, unspecified; I25.2 Old myocardial infarction; E78.2 Mixed hyperlipidemia; I25.10 Atherosclerotic heart disease of native coronary artery without angina pectoris; I50.9 Heart failure, unspecified; Z86.73 Personal history of transient ischemic attack (TIA), and cerebral infarction without residual deficits; Z79.899 Other long term (current) drug therapy; Z79.02 Long term (current) use of antithrombotics/antiplatelets; Z79.84 Long term (current) use of oral hypoglycemic drugs; Z68.39 Body mass index [BMI] 39.0-39.9, adult
CPT/HCPCS: 36600; 71045; 76937; 80048; 80053; 81001; 82803; 82962; 83605; 83735; 83880; 84100; 84484; 85025; 85610; 85730; 87040; 87086; 87088; 87149; 87449; 87631; 87641; 92950; 93005; 93458; 94002; 94003; 97802; 99152; 99153; 99252; 99285; C1894; Q9967; A4216; C1760; C1769; G0463